=== PATIENT | male | born 1960 | race Two or more races ===

== ENCOUNTER 2017-12-04 00:46 | Emergency (ER) | payer MEDICARE, MEDICAID ==
[~2017-12-04] VITALS: Ht 167.6 cm; Wt 86.2 kg
[2017-12-04] MEDS ORDERED: ASPIR 8181 MG ORAL (00:53)
[2017-12-04] MEDS ORDERED: ATORVASTATIN CA40 MG ORAL (00:54)
[2017-12-04] MEDS ORDERED: ISOSORBIDE MONO30 M1 PO (00:55)
[2017-12-04] MEDS ORDERED: HYDRALAZINE HCL10 MG ORAL (00:55)
[2017-12-04] MEDS ORDERED: MULTIVITAMINS1 EAC2 ORAL (00:56)
[2017-12-04] MEDS ORDERED: FUROSEMIDE20 M1 ORAL (00:56)
[2017-12-04] MEDS ORDERED: NORCO 10-325 T1 EACH ORAL (00:56)
[2017-12-04] MEDS ORDERED: PEPCID AC20 M2 PO (00:57)
[2017-12-04] MEDS ORDERED: ZAROXOLYN2.5 MG ORAL (00:57)
[2017-12-04] MEDS ORDERED: PLAVIX75 MG ORAL (00:57)
[2017-12-04] MEDS ORDERED: HUMULIN R100 UNIT/1 SUBQ (01:05)
--- NOTE | 2017-12-04 01:17 | Emergency Room Report ---
History of Present Illness General Chief Complaint: General Complaint Source: Patient, EMS Present Illness HPI Patient is sent in to have a PICC line inserted. He is to receive IV antibiotics at the SNF. He denies any complaints at this time. He says his blood sugar might be high. It's been controlled recently. 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 Pain is controlled. No NVD, dyspnea, chest pain, dysuria. Recent stroke on Plavix. Allergies: Coded Allergies: No Known Allergies (Unverified , 12/04/17) Patient History Past Medical History: see triage record Social History: Denies: smoking, alcohol use, drug use Social History Narrative at [facility] Reviewed Nursing Documentation: PMH: Agreed; PSxH: Agreed Nursing Documentation-PMH Past Medical History: No History, Except For Hx Cardiac Problems: Yes - A-fib Hx Hypertension: Yes Hx Diabetes: Yes Hx Cerebrovascular Accident: Yes Review of Systems All Other Systems: negative except mentioned in HPI Physical Exam Vital Signs Date Time Temp Pulse Resp B/P (MAP) Pulse Ox O2 Delivery O2 Flow Rate FiO2 12/04/17 00:49 97.6 84 18 170/91 95 Room Air 97.5 General Appearance: well appearing, no apparent distress, GCS 15 Head: normocephalic, atraumatic Eyes: bilateral eye normal inspection, bilateral eye PERRL ENT: hearing grossly normal, normal voice, moist mucus membranes Neck: full range of motion, supple Respiratory: no respiratory distress, speaking full sentences Cardiovascular #1: regular rate, rhythm Cardiovascular #2: 2+ radial (L) Gastrointestinal: normal inspection, normal bowel sounds, non tender, soft Genitourinary: no CVA tenderness Musculoskeletal: no calf tenderness, other - foot amputations bilat - dressed Neurologic: alert, oriented x3, motor strength/tone normal, normal gait Psychiatric: mood/affect normal Skin: no rash, other - dressings in place - chronic wounds Medical Decision Making Diagnostic Impression: Primary Impression: Diabetes Qualified Codes: E11.59 - Type 2 diabetes mellitus with other circulatory complications; Z79.4 - assisted (current) use of insulin Additional Impressions: Diabetic foot ulcer Qualified Codes: E11.621 - Type 2 diabetes mellitus with foot ulcer; L97.409 - Non-pressure chronic ulcer of unspecified heel and midfoot with unspecified severity Hypertension Qualified Codes: I10 - Essential (primary) hypertension ER Course Patient presents for PICC line placement for IV antibiotics. He denies complaints and sy. Consideration for IV antibiotics - not toxic, febrile and with stable VS. We are unable to place PICC line at this time. No medical emergency. Returned to SNF to come in when PICC can be placed. Given a dose of one of his meds for HTN. Patient stable for outpatient observation and treatment. Last Vital Signs Date Time Temp Pulse Resp B/P (MAP) Pulse Ox O2 Delivery O2 Flow Rate FiO2 12/04/17 03:17 98.0 84 18 181/96 95 Room Air 98.0 Status: unchanged Disposition: ASSISTED LIVING Condition: Stable Abimael Flores M.D. Dec 04, 2017 01:17
[2017-12-04] MEDS ORDERED: HydrALAZINE 10mg Tab ORAL ONE (01:30)
[2017-12-04 03:17] VITALS: BP 181/96
== END 2017-12-04 03:05 ==
LOC: EDBD 00:46 → EMR 01:07
DX: E11.621 Type 2 diabetes mellitus with foot ulcer (principal); Z89.432 Acquired absence of left foot; Z89.431 Acquired absence of right foot; Z86.73 Personal history of transient ischemic attack (TIA), and cerebral infarction without residual deficits; Z79.02 Long term (current) use of antithrombotics/antiplatelets; Z79.4 Long term (current) use of insulin; I10 Essential (primary) hypertension
CPT/HCPCS: 99284

== ENCOUNTER 2017-12-06 16:43 | Inpatient (IN) | payer MEDICARE, MEDICAID ==
[~2017-12-06] VITALS: Ht 167.6 cm; Wt 84.8 kg
[~2017-12-06 16:43] MED LIST: ASPIR 8181 MG ORAL; ATORVASTATIN CA40 MG ORAL; FUROSEMIDE20 M1 ORAL; HUMULIN R100 UNIT/1 SUBQ; HYDRALAZINE HCL10 MG ORAL; ISOSORBIDE MONO30 M1 PO; MULTIVITAMINS1 EAC2 ORAL; NORCO 10-325 T1 EACH ORAL; PEPCID AC20 M2 PO; PLAVIX75 MG ORAL; ZAROXOLYN2.5 MG ORAL
[2017-12-06] MEDS ORDERED: PEPCID AC20 M2 PO (16:50)
[2017-12-06 17:00] VITALS: BP 160/88
[2017-12-06 17:33] LABS: HEMATOCRIT 23.8 % (42.0-52.0); HEMOGLOBIN 7.6 G/DL (14.2-18.0); MEAN CORPUSCULAR VOLUME 87 FL (80-99); PLATELET COUNT 243 K/UL (150-450); RED BLOOD COUNT 2.72 M/UL (4.70-6.10); RED CELL DISTRIBUTION WIDTH 14.8 % (11.6-14.8); WHITE BLOOD COUNT 11.3 K/UL (4.8-10.8)
[2017-12-06 17:38] LABS: ANION GAP 8 mmol/L (5-15); BLOOD UREA NITROGEN 34 mg/dL (7-18); CARBON DIOXIDE 26 MMOL/L (21-32); CHLORIDE 109 MMOL/L (98-107); CREATININE 3.8 MG/DL (0.55-1.30); POTASSIUM 4.6 MMOL/L (3.5-5.1); SODIUM 143 MMOL/L (136-145)
--- NOTE | 2017-12-06 17:42 | Emergency Room Report ---
History of Present Illness General Chief Complaint: Abnormal Labs Source: Patient (Kulwant Andrade) Present Illness HPI 57-year-old presents to ER brought in by ambulance for anemia. Patient is currently living in assisted nursing facility. Patient was referred to the ER for direct admission by . Patient denies acute complaints, denies fever, chest pain, shortness of breath, calf pain. Patient is currently taking Plavix, reports a history of minor stroke 2 weeks ago, has no facial weakness or paralysis. Reports history of diabetes, has bilateral forefoot amputations. Reports history of hypertension, currently taking his medications. Had labs values drawn at his nursing facility and had a hemoglobin of 6.6 was referred to ER for direct admission and blood transfusion. Denies hematemesis, denies rectal bleeding. Chart shows patient has hx of afib. (Kulwant Andrade) Allergies: Coded Allergies: No Known Allergies (Unverified , 12/04/17) Patient History Past Medical History: see triage record Reviewed Nursing Documentation: PMH: Agreed; PSxH: Agreed (Kulwant Andrade) Nursing Documentation-PMH Past Medical History: No History, Except For Hx Cardiac Problems: Yes - A-fib Hx Hypertension: Yes Hx Diabetes: Yes Hx Cerebrovascular Accident: Yes (Kulwant Andrade) Review of Systems All Other Systems: negative except mentioned in HPI (Kulwant Andrade) Physical Exam Vital Signs Date Time Temp Pulse Resp B/P (MAP) Pulse Ox O2 Delivery O2 Flow Rate FiO2 12/06/17 16:40 97.8 92 16 154/77 100 Room Air 97.9 Sp02 EP Interpretation: reviewed, normal General Appearance: well appearing, no apparent distress, alert, GCS 15, non- toxic Head: normocephalic, atraumatic Eyes: bilateral eye normal inspection, bilateral eye PERRL ENT: hearing grossly normal, normal pharynx, no angioedema, normal voice, uvula midline, moist mucus membranes Neck: full range of motion Respiratory: lungs clear, normal breath sounds, no rhonchi, no respiratory distress, no accessory muscle use, no wheezing, speaking full sentences Cardiovascular #1: regular rate, rhythm, no edema Rectal: normal rectal tone, heme negative stool, other - no black stool Musculoskeletal: other - bilateral forefoot amputation Neurologic: alert, oriented x3, responsive, associate product manager III-XII nml as tested, motor strength/tone normal, sensory intact, speech normal, other - no facial droop Skin: no rash (Kulwant Andrade) Medical Decision Making [place] Attestation Dr. Angel is my supervising Physician whom patient management has been discussed with. (Kulwant Andrade) Medicare Attestation The history of Neil Chavarria has been reviewed and management options for him have been examined and discussed by Karolina Angel. I have personally examined and interviewed the patient. (Karolina Angel DO) Diagnostic Impression: Primary Impression: Anemia ER Course Pt. presents to the ED c/o anemia, BIB ambulance Ddx considered but are not limited to [ ] Vital signs: are WNL, pt. is afebrile ER COURSE: UA Coag studies within normal limits. CBC shows CMP Type and screen show Anitbody test Discuss results with patient. Patient resting comfortably in bed, in no acute distress, nontoxic appearing. Cap refill <2 seconds, no abnormal skin turgor, pulses 2+, vital signs WNL, stable. Ordered 1 units of packed RBCs. Explained to patient the risks of blood transfusion, patient understands risks and is okay with transfusion. - Please note that this Emergency Department Report was dictated using [employer] professor technology software, occasionally this can lead to erroneous entry secondary to interpretation by the dictation equipment. Labs Test 12/06/17 17:13 12/06/17 18:10 White Blood Count 11.3 K/UL (4.8-10.8) Red Blood Count 2.72 M/UL (4.70-6.10) Hemoglobin 7.6 G/DL (14.2-18.0) Hematocrit 23.8 % (42.0-52.0) Mean Corpuscular Volume 87 FL (80-99) Mean Corpuscular Hemoglobin 28.1 PG (27.0-31.0) Mean Corpuscular Hemoglobin Concent 32.2 G/DL (32.0-36.0) Red Cell Distribution Width 14.8 % (11.6-14.8) Platelet Count 243 K/UL (150-450) Mean Platelet Volume 5.5 FL (6.5-10.1) Neutrophils (%) (Auto) % (45.0-75.0) Lymphocytes (%) (Auto) % (20.0-45.0) Monocytes (%) (Auto) % (1.0-10.0) Eosinophils (%) (Auto) % (0.0-3.0) Basophils (%) (Auto) % (0.0-2.0) Differential Total Cells Counted 100 Neutrophils % (Manual) 70 % (45-75) Lymphocytes % (Manual) 23 % (20-45) Monocytes % (Manual) 6 % (1-10) Eosinophils % (Manual) 1 % (0-3) Basophils % (Manual) 0 % (0-2) Band Neutrophils 0 % (0-8) Platelet Estimate Adequate Platelet Morphology Normal Red Blood Cell Morphology Normal Prothrombin Time 10.6 SEC (9.30-11.50) Prothromb Time International Ratio 1.0 (0.9-1.1) Activated Partial Thromboplast Time 28 SEC (23-33) Sodium Level 143 MMOL/L (136-145) Potassium Level 4.6 MMOL/L (3.5-5.1) Chloride Level 109 MMOL/L (98-107) Carbon Dioxide Level 26 MMOL/L (21-32) Anion Gap 8 mmol/L (5-15) Blood Urea Nitrogen 34 mg/dL (7-18) Creatinine 3.8 MG/DL (0.55-1.30) Estimat Glomerular Filtration Rate 16.5 mL/min (>60) Glucose Level 182 MG/DL (74-106) Calcium Level 8.0 MG/DL (8.5-10.1) Total Bilirubin 0.2 MG/DL (0.2-1.0) Aspartate Amino Transf (AST/SGOT) 27 U/L (15-37) Alanine Aminotransferase (ALT/SGPT) 40 U/L (12-78) Alkaline Phosphatase 151 U/L (46-116) Total Protein 6.7 G/DL (6.4-8.2) Albumin 1.7 G/DL (3.4-5.0) Globulin 5.0 g/dL Albumin/Globulin Ratio 0.3 (1.0-2.7) Lipase 170 U/L (73-393) Urine Color Pale yellow Urine Appearance Clear Urine pH 6 (4.5-8.0) Urine Specific [place] 1.010 (1.005-1.035) Urine Protein 4+ (NEGATIVE) Urine Glucose (UA) 1+ (NEGATIVE) Urine Ketones Negative (NEGATIVE) Urine Occult Blood 2+ (NEGATIVE) Urine Nitrite Negative (NEGATIVE) Urine Bilirubin Negative (NEGATIVE) Urine Urobilinogen Normal MG/DL (0.0-1.0) Urine Leukocyte Esterase Negative (NEGATIVE) Urine RBC 10-15 /HPF (0 - 0) Urine WBC 0-2 /HPF (0 - 0) Urine Squamous Epithelial Cells Occasional /LPF Urine Bacteria Few /HPF (NONE) (Kulwant Andrade) Last Vital Signs Date Time Temp Pulse Resp B/P (MAP) Pulse Ox O2 Delivery O2 Flow Rate FiO2 12/06/17 17:00 97.8 88 10 160/88 98 Room Air 97.8 (Kulwant Andrade) Disposition: ADMITTED INPATIENT Condition: Serious Referrals: Romaine Molina MD (PCP) Kulwant Andrade Dec 06, 2017 17:42 Karolina Angel DO Dec 06, 2017 19:42
[2017-12-06 17:43] LABS: ALANINE AMINOTRANSFERASE 40 U/L (12-78); ALBUMIN 1.7 G/DL (3.4-5.0); ALBUMIN/GLOBULIN RATIO 0.3 (1.0-2.7); ALKALINE PHOSPHATASE 151 U/L (46-116); ASPARTATE AMINO TRANSFERASE 27 U/L (15-37); BILIRUBIN,TOTAL 0.2 MG/DL (0.2-1.0)
[2017-12-06 18:20] LABS: APPEARANCE,URINE CLEAR; BILIRUBIN, URINE NEGATIVE (NEGATIVE); COLOR,URINE PALE YELLOW; GLUCOSE, URINE (UA) 1+ (NEGATIVE); KETONES,URINE NEGATIVE (NEGATIVE); LEUKOCYTE ESTERASE ,URINE NEGATIVE (NEGATIVE); NITRITE,URINE NEGATIVE (NEGATIVE); PH,URINE 6 (4.5-8.0); PROTEIN,URINE 4+ (NEGATIVE); UROBILINOGEN,URINE NORMAL MG/DL (0.0-1.0)
[2017-12-06 20:00] VITALS: BP 158/89
[2017-12-06] MEDS ORDERED: HYDROcodone/Acetamin 10/325 tab ORAL PRN (22:30)
[2017-12-07] VITALS (9 sets, daily range): BP systolic 161–192; BP diastolic 90–106
[2017-12-07] MEDS: HydrALAZINE 10mg Tab ORAL SCH ×4 (00:35→17:54)
[2017-12-07] MEDS: NovoLOG Insulin Flexpen SUBQ SCH ×4 (06:23→21:53)
--- NOTE | 2017-12-07 08:24 | Diagnostic Imaging Report ---
Indication: Chest pain Technique: One view of the chest Comparison: none Findings: There is suggestion of mild pulmonary venous congestion. The heart is borderline enlarged. The pleural spaces are clear. No focal airspace consolidation Impression: Equivocal mild pulmonary venous congestion-correlate with clinical findings
[2017-12-07 08:31] LABS: HEMOGLOBIN 7.7 G/DL (14.2-18.0); MEAN CORPUSCULAR VOLUME 88 FL (80-99); PLATELET COUNT 244 K/UL (150-450); RED BLOOD COUNT 2.73 M/UL (4.70-6.10); WHITE BLOOD COUNT 11.9 K/UL (4.8-10.8)
[2017-12-07 08:43] LABS: ALANINE AMINOTRANSFERASE 43 U/L (12-78); ALBUMIN 1.5 G/DL (3.4-5.0); ALBUMIN/GLOBULIN RATIO 0.3 (1.0-2.7); ALKALINE PHOSPHATASE 130 U/L (46-116); ANION GAP 7 mmol/L (5-15); ASPARTATE AMINO TRANSFERASE 34 U/L (15-37); BILIRUBIN,TOTAL 0.2 MG/DL (0.2-1.0); BLOOD UREA NITROGEN 35 mg/dL (7-18); CARBON DIOXIDE 24 MMOL/L (21-32); CHLORIDE 112 MMOL/L (98-107); CREATININE 3.7 MG/DL (0.55-1.30); POTASSIUM 4.6 MMOL/L (3.5-5.1); SODIUM 143 MMOL/L (136-145)
--- NOTE | 2017-12-07 10:16 | GI Initial Consult Note ---
History of Present Illness General Date patient seen: Dec 07, 2017 Time patient seen: 11:22 Reason for Hospitalization: ANEMIA Referring physician: HEIKE GODINEZ Reason for Consultation: ANEMIA Present Illness HPI 57-year-old presents to ER brought in by ambulance for anemia. Patient is currently living in assisted nursing facility. Patient was referred to the ER for direct admission by . Patient denies acute complaints, denies fever, chest pain, shortness of breath, calf pain. Patient is currently taking Plavix, reports a history of minor stroke 2 weeks ago, has no facial weakness or paralysis. Reports history of diabetes, has bilateral forefoot amputations. Reports history of hypertension, currently taking his medications. Had labs values drawn at his nursing facility and had a hemoglobin of 6.6 was referred to ER for direct admission and blood transfusion. Denies hematemesis, denies rectal bleeding. Chart shows patient has hx of afib. GI consulted for anemia. Pt seen, awake A&Ox4 NAD with no active s/sx of N/V/ D. No active s/sx of bleeding. No abdominal pain, diarrhea or constipation. Pt aware he is anemic. Presents today with severe anemia requiring blood transfusion, acute renal insufficiency and elevated alkaline phosphatase and hypoalbuminemia. Patient has no history of endoscopy / colonoscopy. Home Meds Reported Medications Famotidine (PEPCID AC) 20 Mg Tablet, 20 MG PO AC, TAB 12/06/17 Insulin Regular, Human (HUMULIN R) 100 Unit/1 Ml Vial, 0 SUBQ, VIAL 12/04/17 Metolazone (Metolazone) 2.5 Mg Tablet, 2.5 MG ORAL DAILY, #10 TAB 0 Refills 12/04/17 Clopidogrel Bisulfate* (PLAVIX*) 75 Mg Tablet, 75 MG ORAL DAILY, TAB 12/04/17 Famotidine (PEPCID AC) 20 Mg Tablet, 20 MG PO, TAB 12/04/17 Hydrocodone Bit/Acetaminophen 10-325* ([place] 10-325*) 1 Each Tablet, 1 TAB ORAL Q4H PRN for For Pain, TAB 0 Refills PRN PAIN 12/04/17 Multivitamins* (MULTIVITAMINS*) 1 Each Tablet, 1 TAB ORAL DAILY, TAB 0 Refills 12/04/17 Furosemide* (LASIX*) 20 Mg Tablet, 20 MG ORAL DAILY, TAB 12/04/17 Isosorbide Mononitrate (ISOSORBIDE MONONITRATE ER) 30 Mg Tab.er.24h, 30 MG PO, TAB 12/04/17 Hydralazine Hcl* (HYDRALAZINE HCL*) 10 Mg Tablet, 10 MG ORAL EVERY 6 HOURS, TAB 12/04/17 Atorvastatin Calcium* (ATORVASTATIN CALCIUM*) 40 Mg Tablet, 40 MG ORAL BEDTIME, TAB 12/04/17 Aspirin* (ASPIR 81*) 81 Mg Tablet.dr, 81 MG ORAL DAILY, TAB 12/04/17 Med list reviewed/reconciled: Yes Allergies: Coded Allergies: No Known Allergies (Unverified , 12/04/17) Patient History History Provided By: Patient, Medical Record PMH Narrative Past Medical History: No History, Except For Hx Cardiac Problems: Yes - A-fib Hx Hypertension: Yes Hx Diabetes: Yes Hx Cerebrovascular Accident: Yes Social History: Denies: smoking, alcohol use, drug use, other Review of Systems All Other Systems: negative except mentioned in HPI Physical Exam Vital Signs Date Time Temp Pulse Resp B/P (MAP) Pulse Ox O2 Delivery O2 Flow Rate FiO2 12/06/17 16:40 97.8 92 16 154/77 100 Room Air 97.9 Sp02 EP Interpretation: reviewed, normal Labs Laboratory Tests Test 12/06/17 17:13 12/06/17 18:10 12/07/17 06:50 White Blood Count 11.3 K/UL (4.8-10.8) H 11.9 K/UL (4.8-10.8) H Red Blood Count 2.72 M/UL (4.70-6.10) L 2.73 M/UL (4.70-6.10) L Hemoglobin 7.6 G/DL (14.2-18.0) L 7.7 G/DL (14.2-18.0) L Hematocrit 23.8 % (42.0-52.0) L 24.0 % (42.0-52.0) L Mean Corpuscular Volume 87 FL (80-99) 88 FL (80-99) Mean Corpuscular Hemoglobin 28.1 PG (27.0-31.0) 28.1 PG (27.0-31.0) Mean Corpuscular Hemoglobin Concent 32.2 G/DL (32.0-36.0) 31.9 G/DL (32.0-36.0) L Red Cell Distribution Width 14.8 % (11.6-14.8) 15.0 % (11.6-14.8) H Platelet Count 243 K/UL (150-450) 244 K/UL (150-450) Mean Platelet Volume 5.5 FL (6.5-10.1) L 5.7 FL (6.5-10.1) L Neutrophils (%) (Auto) % (45.0-75.0) % (45.0-75.0) Lymphocytes (%) (Auto) % (20.0-45.0) % (20.0-45.0) Monocytes (%) (Auto) % (1.0-10.0) % (1.0-10.0) Eosinophils (%) (Auto) % (0.0-3.0) % (0.0-3.0) Basophils (%) (Auto) % (0.0-2.0) % (0.0-2.0) Differential Total Cells Counted 100 Neutrophils % (Manual) 70 % (45-75) Pending Lymphocytes % (Manual) 23 % (20-45) Pending Monocytes % (Manual) 6 % (1-10) Eosinophils % (Manual) 1 % (0-3) Basophils % (Manual) 0 % (0-2) Band Neutrophils 0 % (0-8) Platelet Estimate Adequate Pending Platelet Morphology Normal Pending Red Blood Cell Morphology Normal Prothrombin Time 10.6 SEC (9.30-11.50) Prothromb Time International Ratio 1.0 (0.9-1.1) Activated Partial Thromboplast Time 28 SEC (23-33) Sodium Level 143 MMOL/L (136-145) 143 MMOL/L (136-145) Potassium Level 4.6 MMOL/L (3.5-5.1) 4.6 MMOL/L (3.5-5.1) Chloride Level 109 MMOL/L (98-107) H 112 MMOL/L (98-107) H Carbon Dioxide Level 26 MMOL/L (21-32) 24 MMOL/L (21-32) Anion Gap 8 mmol/L (5-15) 7 mmol/L (5-15) Blood Urea Nitrogen 34 mg/dL (7-18) H 35 mg/dL (7-18) H Creatinine 3.8 MG/DL (0.55-1.30) H 3.7 MG/DL (0.55-1.30) H Estimat Glomerular Filtration Rate 16.5 mL/min (>60) 17.0 mL/min (>60) Glucose Level 182 MG/DL (74-106) H 119 MG/DL (74-106) H Calcium Level 8.0 MG/DL (8.5-10.1) L 8.0 MG/DL (8.5-10.1) L Total Bilirubin 0.2 MG/DL (0.2-1.0) 0.2 MG/DL (0.2-1.0) Aspartate Amino Transf (AST/SGOT) 27 U/L (15-37) 34 U/L (15-37) Alanine Aminotransferase (ALT/SGPT) 40 U/L (12-78) 43 U/L (12-78) Alkaline Phosphatase 151 U/L (46-116) H 130 U/L (46-116) H Total Protein 6.7 G/DL (6.4-8.2) 6.1 G/DL (6.4-8.2) L Albumin 1.7 G/DL (3.4-5.0) L 1.5 G/DL (3.4-5.0) L Globulin 5.0 g/dL 4.6 g/dL Albumin/Globulin Ratio 0.3 (1.0-2.7) L 0.3 (1.0-2.7) L Lipase 170 U/L (73-393) Urine Color Pale yellow Urine Appearance Clear Urine pH 6 (4.5-8.0) Urine Specific [place] 1.010 (1.005-1.035) Urine Protein 4+ (NEGATIVE) H Urine Glucose (UA) 1+ (NEGATIVE) H Urine Ketones Negative (NEGATIVE) Urine Occult Blood 2+ (NEGATIVE) H Urine Nitrite Negative (NEGATIVE) Urine Bilirubin Negative (NEGATIVE) Urine Urobilinogen Normal MG/DL (0.0-1.0) Urine Leukocyte Esterase Negative (NEGATIVE) Urine RBC 10-15 /HPF (0 - 0) H Urine WBC 0-2 /HPF (0 - 0) Urine Squamous Epithelial Cells Occasional /LPF Urine Bacteria Few /HPF (NONE) General Appearance: well appearing, no apparent distress, alert Head: normocephalic EENT: PERRL/EOMI, normal ENT inspection Neck: supple Respiratory: normal breath sounds, no respiratory distress Cardiovascular: normal rate Gastrointestinal: normal inspection, non tender, soft, normal bowel sounds, non -distended Rectal: deferred Genitourinary: deferred Musculoskeletal: normal inspection, back normal Neurologic: normal inspection, alert, oriented x3, responsive Psychiatric: normal inspection, judgement/insight normal, memory normal Skin: normal color, no rash, warm/dry, palpation normal, well hydrated, other - left heel wound Lymphatic: normal inspection, no adenopathy Current Medications Current Medications Medications (Trade) Dose Ordered Sig/Wilbert Route PRN Reason Start Time Stop Time Status Last Admin Dose Admin Acetaminophen/ Hydrocodone Bitart ([place] 10/325) 1 tab Q4H PRN ORAL For Pain 12/06/17 22:30 12/13/17 22:29 Atorvastatin Calcium (Lipitor) 40 mg BEDTIME ORAL 12/07/17 21:00 01/06/18 20:59 Dextrose (Dextrose 50%) 25 ml STAT PRN IV Hypoglycemia 12/06/17 22:30 01/05/18 22:29 Dextrose (Dextrose 50%) 50 ml STAT PRN IV Hypoglycemia 12/06/17 22:30 01/05/18 22:29 Famotidine (Pepcid) 10 mg ACBREAKFAST ORAL 12/08/17 06:30 01/06/18 06:29 Furosemide (Lasix) 20 mg DAILY ORAL 12/07/17 09:00 01/06/18 08:59 12/07/17 08:53 Hydralazine HCl (Apresoline) 10 mg Q6HR ORAL 12/07/17 00:00 01/06/18 00:00 12/07/17 06:21 Insulin Aspart (NovoLOG) BEFORE MEALS AND HS SUBQ 12/07/17 06:30 01/06/18 06:29 12/07/17 06:23 Multivitamins (Multivitamins) 1 tab DAILY ORAL 12/07/17 09:00 01/06/18 08:59 12/07/17 08:53 GI: Plan Problems: (1) Renal insufficiency (2) Anemia (3) Diabetes (4) CVA (cerebral vascular accident) Plan EGD/colonoscopy scheduled tomorrow. - [facility] now, [facility] - hold all blood thinners / plavix anemia work up OB stool r/o GI bleed monitor H&H, prn transfusions bowel regime ppi fu labs Discussed with Dr. Muro. Thank you for this patient referral, we will follow. The patient was seen and examined at bedside and all new and available data was reviewed in the patients chart. I agree with the above findings, impression and plan. (Patient seen earlier today. Signature stamp does not reflect patient encounter time.). - MD Zita MichelleChandler Regional Medical CenterRachael GAS LEAK INSPECTOR Dec 07, 2017 10:16
--- NOTE | 2017-12-07 11:38 | Consultation ---
Consult Note Consult Note Job ID [id number] Ronnie Bray MD Dec 07, 2017 11:38
--- NOTE | 2017-12-07 12:08 | Consultation ---
History of Present Illness General Date patient seen: Dec 07, 2017 Chief Complaint: Abnormal Labs Reason for Consultation: ANEMIA Present Illness HPI 57-year-old presents to ER brought in by ambulance for anemia from his assisted nursing facility. the pt c/o pain and anxiety. He stated that his problems are situational. The pt has good insight and stated that he wants his eye glasses as he cannot see nor read Allergies: Coded Allergies: No Known Allergies (Unverified , 12/04/17) Medication History Scheduled Aspirin* (Aspir 81*), 81 MG ORAL DAILY, (Reported) Atorvastatin Calcium* (Atorvastatin Calcium*), 40 MG ORAL BEDTIME, (Reported) Clopidogrel Bisulfate* (Plavix*), 75 MG ORAL DAILY, (Reported) Famotidine (Pepcid Ac), 20 MG PO AC, (Reported) Furosemide* (Lasix*), 20 MG ORAL DAILY, (Reported) Hydralazine Hcl* (Hydralazine Hcl*), 10 MG ORAL EVERY 6 HOURS, (Reported) Metolazone (Metolazone), 2.5 MG ORAL DAILY, (Reported) Multivitamins* (Multivitamins*), 1 TAB ORAL DAILY, (Reported) Scheduled PRN Hydrocodone Bit/Acetaminophen 10-325* ([place] 10-325*), 1 TAB ORAL Q4H PRN for For Pain, (Reported) Miscellaneous Medications Famotidine (Pepcid Ac), 20 MG PO, (Reported) Insulin Regular, Human (Humulin R), 0 SUBQ, (Reported) Isosorbide Mononitrate (Isosorbide Mononitrate Er), 30 MG PO, (Reported) Patient History Limited by: medical condition History Provided By: Patient, Medical Record, PMD Healthcare decision maker Resuscitation status Full Code Advanced Directive on File No Past Medical/Surgical History Past Medical/Surgical History: (1) Anemia (2) Hypertension (3) Diabetic foot ulcer (4) Diabetes (5) Renal insufficiency (6) CVA (cerebral vascular accident) Review of Systems Psychiatric: Reports: prior hx, anxiety, depressed feelings Physical Exam General Appearance: no apparent distress, alert Neurologic: alert, oriented x 3, depressed affect Last 24 Hour Vital Signs Date Time Temp Pulse Resp B/P (MAP) Pulse Ox O2 Delivery O2 Flow Rate FiO2 12/07/17 11:41 187/105 12/07/17 09:00 Room Air 12/07/17 08:00 99.9 87 20 177/96 (123) 98 99.9 12/07/17 06:21 172/91 12/07/17 04:00 98.0 89 20 172/91 (118) 95 98.0 12/07/17 04:00 88 12/07/17 00:35 162/90 12/07/17 00:00 84 12/07/17 00:00 98.0 89 20 162/90 (114) 96 98.0 12/06/17 21:00 Room Air 12/06/17 20:09 98.6 86 20 168/87 100 Room Air 12/06/17 20:00 89 12/06/17 20:00 97.8 89 20 158/89 (112) 96 97.8 12/06/17 19:11 98.1 84 16 98.1 12/06/17 18:56 98.1 90 20 98.1 12/06/17 17:00 97.8 88 10 160/88 98 Room Air 97.8 12/06/17 16:40 97.8 92 16 154/77 100 Room Air 97.9 Intake and Output 12/06/17 12/07/17 19:00 07:00 Intake Total 50 ml Output Total 300 ml Balance -250 ml Intake Oral 50 ml Output Urine Total 300 ml # Voids 1 Laboratory Tests Test 12/06/17 17:13 12/06/17 18:10 12/07/17 06:50 White Blood Count 11.3 K/UL (4.8-10.8) H 11.9 K/UL (4.8-10.8) H Red Blood Count 2.72 M/UL (4.70-6.10) L 2.73 M/UL (4.70-6.10) L Hemoglobin 7.6 G/DL (14.2-18.0) L 7.7 G/DL (14.2-18.0) L Hematocrit 23.8 % (42.0-52.0) L 24.0 % (42.0-52.0) L Mean Corpuscular Volume 87 FL (80-99) 88 FL (80-99) Mean Corpuscular Hemoglobin 28.1 PG (27.0-31.0) 28.1 PG (27.0-31.0) Mean Corpuscular Hemoglobin Concent 32.2 G/DL (32.0-36.0) 31.9 G/DL (32.0-36.0) L Red Cell Distribution Width 14.8 % (11.6-14.8) 15.0 % (11.6-14.8) H Platelet Count 243 K/UL (150-450) 244 K/UL (150-450) Mean Platelet Volume 5.5 FL (6.5-10.1) L 5.7 FL (6.5-10.1) L Neutrophils (%) (Auto) % (45.0-75.0) % (45.0-75.0) Lymphocytes (%) (Auto) % (20.0-45.0) % (20.0-45.0) Monocytes (%) (Auto) % (1.0-10.0) % (1.0-10.0) Eosinophils (%) (Auto) % (0.0-3.0) % (0.0-3.0) Basophils (%) (Auto) % (0.0-2.0) % (0.0-2.0) Differential Total Cells Counted 100 100 Neutrophils % (Manual) 70 % (45-75) 78 % (45-75) H Lymphocytes % (Manual) 23 % (20-45) 16 % (20-45) L Monocytes % (Manual) 6 % (1-10) 6 % (1-10) Eosinophils % (Manual) 1 % (0-3) 0 % (0-3) Basophils % (Manual) 0 % (0-2) 0 % (0-2) Band Neutrophils 0 % (0-8) 0 % (0-8) Platelet Estimate Adequate Decreased L Platelet Morphology Normal Normal Red Blood Cell Morphology Normal Prothrombin Time 10.6 SEC (9.30-11.50) Prothromb Time International Ratio 1.0 (0.9-1.1) Activated Partial Thromboplast Time 28 SEC (23-33) Sodium Level 143 MMOL/L (136-145) 143 MMOL/L (136-145) Potassium Level 4.6 MMOL/L (3.5-5.1) 4.6 MMOL/L (3.5-5.1) Chloride Level 109 MMOL/L (98-107) H 112 MMOL/L (98-107) H Carbon Dioxide Level 26 MMOL/L (21-32) 24 MMOL/L (21-32) Anion Gap 8 mmol/L (5-15) 7 mmol/L (5-15) Blood Urea Nitrogen 34 mg/dL (7-18) H 35 mg/dL (7-18) H Creatinine 3.8 MG/DL (0.55-1.30) H 3.7 MG/DL (0.55-1.30) H Estimat Glomerular Filtration Rate 16.5 mL/min (>60) 17.0 mL/min (>60) Glucose Level 182 MG/DL (74-106) H 119 MG/DL (74-106) H Calcium Level 8.0 MG/DL (8.5-10.1) L 8.0 MG/DL (8.5-10.1) L Total Bilirubin 0.2 MG/DL (0.2-1.0) 0.2 MG/DL (0.2-1.0) Aspartate Amino Transf (AST/SGOT) 27 U/L (15-37) 34 U/L (15-37) Alanine Aminotransferase (ALT/SGPT) 40 U/L (12-78) 43 U/L (12-78) Alkaline Phosphatase 151 U/L (46-116) H 130 U/L (46-116) H Total Protein 6.7 G/DL (6.4-8.2) 6.1 G/DL (6.4-8.2) L Albumin 1.7 G/DL (3.4-5.0) L 1.5 G/DL (3.4-5.0) L Globulin 5.0 g/dL 4.6 g/dL Albumin/Globulin Ratio 0.3 (1.0-2.7) L 0.3 (1.0-2.7) L Lipase 170 U/L (73-393) Urine Color Pale yellow Urine Appearance Clear Urine pH 6 (4.5-8.0) Urine Specific [place] 1.010 (1.005-1.035) Urine Protein 4+ (NEGATIVE) H Urine Glucose (UA) 1+ (NEGATIVE) H Urine Ketones Negative (NEGATIVE) Urine Occult Blood 2+ (NEGATIVE) H Urine Nitrite Negative (NEGATIVE) Urine Bilirubin Negative (NEGATIVE) Urine Urobilinogen Normal MG/DL (0.0-1.0) Urine Leukocyte Esterase Negative (NEGATIVE) Urine RBC 10-15 /HPF (0 - 0) H Urine WBC 0-2 /HPF (0 - 0) Urine Squamous Epithelial Cells Occasional /LPF Urine Bacteria Few /HPF (NONE) Microbiology Date/Time Source Procedure Growth Status 12/06/17 19:35 Rectum Received Height (Feet): 5 Height (Inches): 6.00 Weight (Pounds): 190 Medications Current Medications Medications (Trade) Dose Ordered Sig/Wilbert Route PRN Reason Start Time Stop Time Status Last Admin Dose Admin Acetaminophen/ Hydrocodone Bitart ([place] 10/325) 1 tab Q4H PRN ORAL For Pain 12/06/17 22:30 12/13/17 22:29 Atorvastatin Calcium (Lipitor) 40 mg BEDTIME ORAL 12/07/17 21:00 01/06/18 20:59 Bisacodyl (Dulcolax) 10 mg ONCE ONCE ORAL 12/07/17 16:00 12/07/17 16:01 UNV Chlorhexidine Gluconate (Kavita-Hex 2%) 1 applic DAILY@2000 TOPIC 12/07/17 20:00 01/06/18 19:59 UNV Clonidine HCl (Catapres Tab) 0.1 mg EVERY 6 HOURS PRN ORAL For High Blood Pressure 12/07/17 11:45 01/06/18 11:44 UNV Dextrose (Dextrose 50%) 25 ml STAT PRN IV Hypoglycemia 12/06/17 22:30 01/05/18 22:29 Dextrose (Dextrose 50%) 50 ml STAT PRN IV Hypoglycemia 12/06/17 22:30 01/05/18 22:29 Famotidine (Pepcid) 10 mg ACBREAKFAST ORAL 12/08/17 06:30 01/06/18 06:29 Furosemide (Lasix) 20 mg DAILY ORAL 12/07/17 09:00 01/06/18 08:59 12/07/17 08:53 Heparin Sodium/ Sodium Chloride (Heparin 2000 units/Ns 1000ml premix) 2,000 unit ONCE ONCE INJ 12/07/17 11:30 12/07/17 11:31 UNV Hydralazine HCl (Apresoline) 10 mg Q6HR ORAL 12/07/17 00:00 01/06/18 00:00 12/07/17 11:41 Insulin Aspart (NovoLOG) BEFORE MEALS AND HS SUBQ 12/07/17 06:30 01/06/18 06:29 12/07/17 11:41 Lidocaine HCl (Xylocaine 1% 30ml) 30 ml ONCE ONCE INJ 12/07/17 11:30 12/07/17 11:31 UNV Multivitamins (Multivitamins) 1 tab DAILY ORAL 12/07/17 09:00 01/06/18 08:59 12/07/17 08:53 Polyethylene Glycol (Miralax) 238 gm ONCE ONCE ORAL 12/07/17 16:00 12/07/17 16:01 UNV Assessment/Plan Assessment/Plan Adjustment d/o anxiety d/o atconnie edge/Toney Cardoso MD Dec 07, 2017 12:08
[2017-12-07] MEDS ORDERED: Heparin 2000 units/Ns 1000ml INJ SCH (12:30)
[2017-12-07] MEDS ORDERED: Gadavist 7.5mMol/7.5ml vial IV PRN (12:30)
[2017-12-07] MEDS ORDERED: Lidocaine 1% Plain 30 ml INJ SCH (12:30)
--- NOTE | 2017-12-07 12:30 | Consultation ---
History of Present Illness General Date patient seen: Dec 07, 2017 Chief Complaint: Abnormal Labs Reason for Consultation: ANEMIA Present Illness HPI 57 year old male with multiple medical comorbidities currently living in nursing facility was noted to have significant anemia and was transported to [facility] [place]up and care. upon admission patient noted to have bilateral lower extremity amputations with left midfoot and right partial. on right foot there is a large open complex wound at the heel. patient states he has had for some time now and has not been healing well. surgery called to evaluate and assist with care. patient seen, chart reviewed, patient examined. Allergies: Coded Allergies: No Known Allergies (Unverified , 12/04/17) Medication History Scheduled Aspirin* (Aspir 81*), 81 MG ORAL DAILY, (Reported) Atorvastatin Calcium* (Atorvastatin Calcium*), 40 MG ORAL BEDTIME, (Reported) Clopidogrel Bisulfate* (Plavix*), 75 MG ORAL DAILY, (Reported) Famotidine (Pepcid Ac), 20 MG PO AC, (Reported) Furosemide* (Lasix*), 20 MG ORAL DAILY, (Reported) Hydralazine Hcl* (Hydralazine Hcl*), 10 MG ORAL EVERY 6 HOURS, (Reported) Metolazone (Metolazone), 2.5 MG ORAL DAILY, (Reported) Multivitamins* (Multivitamins*), 1 TAB ORAL DAILY, (Reported) Scheduled PRN Hydrocodone Bit/Acetaminophen 10-325* ([place] 10-325*), 1 TAB ORAL Q4H PRN for For Pain, (Reported) Miscellaneous Medications Famotidine (Pepcid Ac), 20 MG PO, (Reported) Insulin Regular, Human (Humulin R), 0 SUBQ, (Reported) Isosorbide Mononitrate (Isosorbide Mononitrate Er), 30 MG PO, (Reported) Patient History History Provided By: Patient, Medical Record, PMD Healthcare decision maker Resuscitation status Full Code Advanced Directive on File No Past Medical/Surgical History Past Medical/Surgical History: (1) Ulcer of right heel and midfoot with fat layer exposed (2) Anemia (3) Diabetes (4) Renal insufficiency (5) CVA (cerebral vascular accident) (6) Hypertension (7) Diabetic foot ulcer Review of Systems All Other Systems: negative except mentioned in HPI Physical Exam General Appearance: no apparent distress, alert HEENT: mucous membranes moist Neck: normal inspection Respiratory/Chest: normal breath sounds, no respiratory distress, no accessory muscle use Cardiovascular/Chest: regular rhythm Abdomen: soft, no organomegaly, no mass Extremities: other - left foot amputation, right foot amputation, right foot with large heel ulcer non healing possibly down to bone Skin Exam: normal pigmentation Neurologic: alert, responsive Last 24 Hour Vital Signs Date Time Temp Pulse Resp B/P (MAP) Pulse Ox O2 Delivery O2 Flow Rate FiO2 12/07/17 11:41 187/105 12/07/17 09:00 Room Air 12/07/17 08:00 99.9 87 20 177/96 (123) 98 99.9 12/07/17 06:21 172/91 12/07/17 04:00 98.0 89 20 172/91 (118) 95 98.0 12/07/17 04:00 88 12/07/17 00:35 162/90 12/07/17 00:00 84 12/07/17 00:00 98.0 89 20 162/90 (114) 96 98.0 12/06/17 21:00 Room Air 12/06/17 20:09 98.6 86 20 168/87 100 Room Air 12/06/17 20:00 89 12/06/17 20:00 97.8 89 20 158/89 (112) 96 97.8 12/06/17 19:11 98.1 84 16 98.1 12/06/17 18:56 98.1 90 20 98.1 12/06/17 17:00 97.8 88 10 160/88 98 Room Air 97.8 12/06/17 16:40 97.8 92 16 154/77 100 Room Air 97.9 Intake and Output 12/06/17 12/07/17 19:00 07:00 Intake Total 50 ml Output Total 300 ml Balance -250 ml Intake Oral 50 ml Output Urine Total 300 ml # Voids 1 Laboratory Tests Test 12/06/17 17:13 12/06/17 18:10 12/07/17 06:50 White Blood Count 11.3 K/UL (4.8-10.8) H 11.9 K/UL (4.8-10.8) H Red Blood Count 2.72 M/UL (4.70-6.10) L 2.73 M/UL (4.70-6.10) L Hemoglobin 7.6 G/DL (14.2-18.0) L 7.7 G/DL (14.2-18.0) L Hematocrit 23.8 % (42.0-52.0) L 24.0 % (42.0-52.0) L Mean Corpuscular Volume 87 FL (80-99) 88 FL (80-99) Mean Corpuscular Hemoglobin 28.1 PG (27.0-31.0) 28.1 PG (27.0-31.0) Mean Corpuscular Hemoglobin Concent 32.2 G/DL (32.0-36.0) 31.9 G/DL (32.0-36.0) L Red Cell Distribution Width 14.8 % (11.6-14.8) 15.0 % (11.6-14.8) H Platelet Count 243 K/UL (150-450) 244 K/UL (150-450) Mean Platelet Volume 5.5 FL (6.5-10.1) L 5.7 FL (6.5-10.1) L Neutrophils (%) (Auto) % (45.0-75.0) % (45.0-75.0) Lymphocytes (%) (Auto) % (20.0-45.0) % (20.0-45.0) Monocytes (%) (Auto) % (1.0-10.0) % (1.0-10.0) Eosinophils (%) (Auto) % (0.0-3.0) % (0.0-3.0) Basophils (%) (Auto) % (0.0-2.0) % (0.0-2.0) Differential Total Cells Counted 100 100 Neutrophils % (Manual) 70 % (45-75) 78 % (45-75) H Lymphocytes % (Manual) 23 % (20-45) 16 % (20-45) L Monocytes % (Manual) 6 % (1-10) 6 % (1-10) Eosinophils % (Manual) 1 % (0-3) 0 % (0-3) Basophils % (Manual) 0 % (0-2) 0 % (0-2) Band Neutrophils 0 % (0-8) 0 % (0-8) Platelet Estimate Adequate Decreased L Platelet Morphology Normal Normal Red Blood Cell Morphology Normal Prothrombin Time 10.6 SEC (9.30-11.50) Prothromb Time International Ratio 1.0 (0.9-1.1) Activated Partial Thromboplast Time 28 SEC (23-33) Sodium Level 143 MMOL/L (136-145) 143 MMOL/L (136-145) Potassium Level 4.6 MMOL/L (3.5-5.1) 4.6 MMOL/L (3.5-5.1) Chloride Level 109 MMOL/L (98-107) H 112 MMOL/L (98-107) H Carbon Dioxide Level 26 MMOL/L (21-32) 24 MMOL/L (21-32) Anion Gap 8 mmol/L (5-15) 7 mmol/L (5-15) Blood Urea Nitrogen 34 mg/dL (7-18) H 35 mg/dL (7-18) H Creatinine 3.8 MG/DL (0.55-1.30) H 3.7 MG/DL (0.55-1.30) H Estimat Glomerular Filtration Rate 16.5 mL/min (>60) 17.0 mL/min (>60) Glucose Level 182 MG/DL (74-106) H 119 MG/DL (74-106) H Calcium Level 8.0 MG/DL (8.5-10.1) L 8.0 MG/DL (8.5-10.1) L Total Bilirubin 0.2 MG/DL (0.2-1.0) 0.2 MG/DL (0.2-1.0) Aspartate Amino Transf (AST/SGOT) 27 U/L (15-37) 34 U/L (15-37) Alanine Aminotransferase (ALT/SGPT) 40 U/L (12-78) 43 U/L (12-78) Alkaline Phosphatase 151 U/L (46-116) H 130 U/L (46-116) H Total Protein 6.7 G/DL (6.4-8.2) 6.1 G/DL (6.4-8.2) L Albumin 1.7 G/DL (3.4-5.0) L 1.5 G/DL (3.4-5.0) L Globulin 5.0 g/dL 4.6 g/dL Albumin/Globulin Ratio 0.3 (1.0-2.7) L 0.3 (1.0-2.7) L Lipase 170 U/L (73-393) Urine Color Pale yellow Urine Appearance Clear Urine pH 6 (4.5-8.0) Urine Specific [place] 1.010 (1.005-1.035) Urine Protein 4+ (NEGATIVE) H Urine Glucose (UA) 1+ (NEGATIVE) H Urine Ketones Negative (NEGATIVE) Urine Occult Blood 2+ (NEGATIVE) H Urine Nitrite Negative (NEGATIVE) Urine Bilirubin Negative (NEGATIVE) Urine Urobilinogen Normal MG/DL (0.0-1.0) Urine Leukocyte Esterase Negative (NEGATIVE) Urine RBC 10-15 /HPF (0 - 0) H Urine WBC 0-2 /HPF (0 - 0) Urine Squamous Epithelial Cells Occasional /LPF Urine Bacteria Few /HPF (NONE) Microbiology Date/Time Source Procedure Growth Status 12/06/17 19:35 Rectum Received Height (Feet): 5 Height (Inches): 6.00 Weight (Pounds): 190 Medications Current Medications Medications (Trade) Dose Ordered Sig/Wilbert Route PRN Reason Start Time Stop Time Status Last Admin Dose Admin Acetaminophen/ Hydrocodone Bitart ([place] 10/325) 1 tab Q4H PRN ORAL For Pain 12/06/17 22:30 12/13/17 22:29 Atorvastatin Calcium (Lipitor) 40 mg BEDTIME ORAL 12/07/17 21:00 01/06/18 20:59 Bisacodyl (Dulcolax) 10 mg ONCE ORAL 12/07/17 16:00 12/07/17 17:00 Chlorhexidine Gluconate (Kavita-Hex 2%) 1 applic DAILY@1999 TOPIC 12/07/17 20:00 01/06/18 19:59 Clonidine HCl (Catapres Tab) 0.1 mg Q6H PRN ORAL if SBP>170 12/07/17 12:15 01/06/18 12:14 Dextrose (Dextrose 50%) 25 ml STAT PRN IV Hypoglycemia 12/06/17 22:30 01/05/18 22:29 Dextrose (Dextrose 50%) 50 ml STAT PRN IV Hypoglycemia 12/06/17 22:30 01/05/18 22:29 Famotidine (Pepcid) 10 mg ACBREAKFAST ORAL 12/08/17 06:30 01/06/18 06:29 Furosemide (Lasix) 20 mg DAILY ORAL 12/07/17 09:00 01/06/18 08:59 12/07/17 08:53 Heparin Sodium/ Sodium Chloride (Heparin 2000 units/Ns 1000ml premix) 2,000 unit ONCE INJ 12/07/17 12:30 12/07/17 13:30 Hydralazine HCl (Apresoline) 10 mg Q6HR ORAL 12/07/17 00:00 01/06/18 00:00 12/07/17 11:41 Insulin Aspart (NovoLOG) BEFORE MEALS AND HS SUBQ 12/07/17 06:30 01/06/18 06:29 12/07/17 11:41 Lidocaine HCl (Xylocaine 1% 30ml) 30 ml ONCE INJ 12/07/17 12:30 12/07/17 13:30 Multivitamins (Multivitamins) 1 tab DAILY ORAL 12/07/17 09:00 01/06/18 08:59 12/07/17 08:53 Polyethylene Glycol (Miralax) 238 gm ONCE ORAL 12/07/17 16:00 12/07/17 17:00 Assessment/Plan Problem List: (1) Anemia ICD Codes: D64.9 - Anemia, unspecified SNOMED: 945576310 (2) Diabetes ICD Codes: E11.9 - Type 2 diabetes mellitus without complications SNOMED: 56737466, 76135734 (3) Ulcer of right heel and midfoot with fat layer exposed Assessment & Plan: left foot amputation, right foot amputation, right foot with large heel ulcer non healing possibly down to bone -MRI right foot to ensure no osteo -wet to dry dressing to help with debridement of fibrinous debris. -keep off wound -heel protectors. ICD Codes: L97.412 - Non-pressure chronic ulcer of right heel and midfoot with fat layer exposed SNOMED: 53963638 Status: stable [email or web address] paya Dec 07, 2017 12:30
[2017-12-07] MEDS ORDERED: Bisacodyl EC 5mg tab ORAL SCH (16:00)
[2017-12-07] MEDS ORDERED: HydrALAZINE 25mg tab ORAL PRN ×2 (16:00→20:00)
[2017-12-07] MEDS ORDERED: Polyethylene Glycol 238gm bottle ORAL SCH (16:00)
--- NOTE | 2017-12-07 16:42 | Diagnostic Imaging Report ---
Indication: Reason For Exam: ABSCESS Technique: Sagittal, coronal, and axial T 1 fast spin echo and FSE STIR images of the hindfoot and ankle Comparison: none Findings: There is extensive edema of the superficial subcutaneous fat diffusely, most prominent medial to the mid calcaneus. There is considerable edema of the deep soft tissue compartments as well. There is questionably a 16 mm discrete collection in the medial ankle region in the region of the soft tissue ulcer. No definite osseous signal abnormality is demonstrated. Impression: Extensive diffuse soft tissue edema, nonspecific in appearance but likely on the basis of cellulitis given stated clinical history Possible small 16 mm abscess in the medial ankle subcutaneous fat No osseous signal abnormality to suggest osteomyelitis
--- NOTE | 2017-12-07 17:45 | History and Physical Report ---
DATE OF ADMISSION: 12/06/2017 HISTORY OF PRESENT ILLNESS: I saw the patient. The patient basically is here, admitted for multiple reasons, mainly severe anemia, also acute renal failure. The patient also has wounds, has osteomyelitis of the wound as well. [facility]. The patient was complaining of lower extremity pain. Denies fever. Denies shortness of breath. Denies cough. Denies fever or chills. Denies orthopnea. Denies neuropathy as well. PAST MEDICAL HISTORY: CVA, history of diabetes mellitus, and history of hypertension. The patient also has a history of atrial fibrillation and history of CVA as mentioned. Osteomyelitis of the wound. PAST SURGICAL HISTORY: He has basically bilateral forefoot amputations. MEDICATIONS: Aspirin, Lipitor, Plavix, Pepcid, hydralazine, insulin, isosorbide, and multivitamin. FAMILY HISTORY: He does have history of diabetes and hypertension. SOCIAL HISTORY: History of smoking, history of drug and alcohol abuse. [facility]es [facility]. As mentioned, history of smoking, drug and alcohol abuse. REVIEW OF SYSTEMS: HEENT: Denies headaches. RESPIRATORY: Denies shortness of breath. Denies cough. CARDIOVASCULAR: Denies chest pain. GASTROINTESTINAL: Denies nausea, vomiting, or diarrhea. EXTREMITIES: Worse bilateral lower leg, which is chronic. CENTRAL NERVOUS SYSTEM: Denies change in vision or speech pattern. PHYSICAL EXAMINATION: VITAL SIGNS: Temperature is 98 degrees, pulse 89,and blood pressure 162/90. HEENT: PERRLA. NECK: Supple. No lymphadenopathy. CHEST: Clear to auscultation. CARDIOVASCULAR: Regular rate and rhythm. GASTROINTESTINAL: Soft, nontender, and nondistended. No organomegaly. EXTREMITIES: infection. Please refer to the nursing notes for the wound description. LABORATORY AND DIAGNOSTIC DATA: WBC of 11.3, hemoglobin 7.6 and platelets of 243. Sodium 143, potassium 4.6, BUN of 34, creatinine of 3.8, and glucose of 184. AST of 27 and AST of 40. Total bilirubin 1.2. Lipase of 170. ASSESSMENT AND PLAN: 1. Severe anemia. 2. Acute renal failure. 3. Multiple wounds, may need debridement. 4. I have asked Dr. Bray, Dr. Connors, Dr. Muro, and Dr. Browning to see the patient for possible debridement as well as possible workup of anemia as well. We will also order a PICC line since the patient is going to be on multiple weeks of antibiotics for osteomyelitis of the wound. Romaine Molina M.D. DR: CARLIE JOB#: [id number] CC:
--- NOTE | 2017-12-07 18:00 | Consultation ---
DATE OF CONSULTATION: 12/07/2017 HEMATOLOGY/ONCOLOGY CONSULTATION CONSULTING PHYSICIAN: Ronnie Bray M.D. REQUESTING PHYSICIAN: Romaine Molina M.D. REASON FOR CONSULTATION: Evaluation of anemia. IDENTIFICATION DATA: Dear Dr. Molina, Thank you for the courtesy of this consultation. The patient is a pleasant 57-year-old male with history of diabetes mellitus, history of hyperlipidemia, shortness of breath, history of ago for facial weakness, paralysis, diabetes, bilateral forefoot amputations, noted to have a [facility] 6[facility]6 at a [facility], therefore, directly being admitted for blood transfusion. The patient has a history of atrial fibrillation as well. Gastrointestinal service consulted for anemia. Hematology service was consulted as well. The patient has no history of endoscopy in the past. PAST MEDICAL HISTORY: Hypertension, diabetes, atrial fibrillation, CVA. PAST SURGICAL HISTORY: None noted. MEDICATIONS: Aspirin, Lipitor, hydralazine, Imdur, Lasix, multivitamin, hydrocodone, Pepcid, Plavix, and metolazone. ALLERGIES: No known drug allergies. REVIEW OF SYSTEMS: CONSTITUTIONAL: No fever, chills, or night sweats. SKIN: No rashes, bumps, or itching. HEENT: No headache, hearing or visual changes. BREASTS: No lumps, pain, or discharge. PULMONARY: No cough, sputum, or shortness of breath. GASTROINTESTINAL: No nausea, vomiting, or diarrhea. GENITOURINARY: No dysuria, frequency, or urgency. MUSCULOSKELETAL: No joint swelling, muscle pain, or trauma. PHYSICAL EXAMINATION: VITAL SIGNS: Reviewed. GENERAL: No acute distress. LUNGS: Decreased breath sounds. CARDIOVASCULAR: Regular rate. No S3 or S4. ABDOMEN: Soft, nontender, and nondistended. EXTREMITIES: A 1+ edema. LABORATORY DATA: WBC 11.9, hemoglobin 7.7, hematocrit 24, and platelet count 254,000. BUN 53 and creatinine 2.7. Coagulation panel has been reviewed. Orders have been reviewed. Anemia panel has been ordered by GI service. ASSESSMENT AND RECOMMENDATIONS: 1. Anemia due to underlying chronic disease. Continue to closely monitor. Anemia panel ordered. 2. Anemia due to underlying kidney disease. Closely monitor for improvement. 3. Mild protein-caloric malnutrition. 4. Leukocytosis potentially secondary to reactive process. 5. Diabetes mellitus. A1c goal less than 7. 6. Constipation . Endoscopy as per gastrointestinal service. I appreciate consultation. Ronnie Bray M.D. DR: SHAHIDA JOB#: [id number] CC:
[2017-12-07] MEDS: Dyna-Hex 2% Top Sol 2oz TOPIC SCH (20:00)
[2017-12-07] MEDS: Atorvastatin 20mg tab ORAL SCH (21:39)
[2017-12-08] VITALS (12 sets, daily range): BP systolic 158–206; BP diastolic 92–115
[2017-12-08] MEDS: HydrALAZINE 10mg Tab ORAL SCH ×2 (00:14→06:56)
[2017-12-08] MEDS: NovoLOG Insulin Flexpen SUBQ SCH ×4 (06:30→20:17)
[2017-12-08 07:37] LABS: BASOPHILS % (AUTO) 1.1 % (0.0-2.0); EOSINOPHILS % (AUTO) 3.1 % (0.0-3.0); HEMATOCRIT 25.9 % (42.0-52.0); HEMOGLOBIN 8.5 G/DL (14.2-18.0); LYMPHOCYTES % (AUTO) 12.7 % (20.0-45.0); MEAN CORPUSCULAR VOLUME 87 FL (80-99); MONOCYTES % (AUTO) 8.5 % (1.0-10.0); NEUTROPHILS % (AUTO) 74.6 % (45.0-75.0); PLATELET COUNT 281 K/UL (150-450); RED BLOOD COUNT 2.99 M/UL (4.70-6.10); RED CELL DISTRIBUTION WIDTH 15.5 % (11.6-14.8); WHITE BLOOD COUNT 11.9 K/UL (4.8-10.8)
[2017-12-08] MEDS ORDERED: Lidocaine 1% Plain 30 ml INJ SCH (08:00)
[2017-12-08] MEDS ORDERED: Heparin 2000 units/Ns 1000ml INJ SCH (08:00)
[2017-12-08 08:15] LABS: % IRON SATURATION 14 % (15-50); IRON 18 ug/dL (50-175); TOTAL IRON BINDING CAPACITY 127 ug/dL (250-450)
[2017-12-08 08:26] LABS: ALANINE AMINOTRANSFERASE 47 U/L (12-78); ALBUMIN 1.6 G/DL (3.4-5.0); ALBUMIN/GLOBULIN RATIO 0.3 (1.0-2.7); ALKALINE PHOSPHATASE 142 U/L (46-116); ANION GAP 10 mmol/L (5-15); ASPARTATE AMINO TRANSFERASE 30 U/L (15-37); BILIRUBIN,TOTAL 0.3 MG/DL (0.2-1.0); BLOOD UREA NITROGEN 34 mg/dL (7-18); CALCIUM 8.6 MG/DL (8.5-10.1); CARBON DIOXIDE 24 MMOL/L (21-32); CHLORIDE 108 MMOL/L (98-107); CREATININE 3.5 MG/DL (0.55-1.30); FERRITIN 251 NG/ML (8-388); SODIUM 142 MMOL/L (136-145)
[2017-12-08 09:44] LABS: PHOSPHORUS 4.5 MG/DL (2.5-4.9)
[2017-12-08 09:52] LABS: CREATINE KINASE 92 U/L (26-308)
[2017-12-08] MEDS: Aspirin EC 81mg tab ORAL SCH (10:30)
[2017-12-08] MEDS ORDERED: LR 1000ml 1,000 ML IVLG SCH (11:24)
--- NOTE | 2017-12-08 11:29 | Anethesia Preoperative Eval ---
Anesthesia Pre-op PMH/ROS General Date of Evaluation: Dec 08, 2017 Anesthesiologist: Ward ASA Score: ASA 3 Mallampati Score Class I : Soft palate, uvula, fauces, pillars visible Class II: Soft palate, uvula, fauces visible Class III: Soft palate, base of uvula visible Class IV: Only hard plate visible Mallampati Classification: Class II Surgeon: Jina Diagnosis: Abd Pain Surgical Procedure: EGD/Colonoscopy Anesthesia History: none Family History: no anesthesia problems Allergies: Coded Allergies: No Known Allergies (Unverified , 12/04/17) Medications: see eMAR Past Medical History Cardiovascular: Reports: HTN, arrhythmia - AfIb Gastrointestinal/Genitourinary: Reports: CRI Endocrine: Reports: DM Hematology/Immune: Reports: anemia PSxH Narrative: R Foot Amp Anesthesia Pre-op Phys. Exam Physician Exam Last Vital Signs Date Time Temp Pulse Resp B/P (MAP) Pulse Ox O2 Delivery O2 Flow Rate FiO2 12/08/17 10:23 77 182/111 12/08/17 09:00 Room Air 12/08/17 09:00 97.8 20 97 97.8 Constitutional: NAD Neurologic: CN 2-12 intact Cardiovascular: RRR Respiratory: CTA Gastrointestinal: S/NT/ND Airway Exam Mallampati Score: Class II MO: limited ROM: limited Teeth: missing, intact, broken Anesthesia Pre-op A/P Labs Hematology Test 12/08/17 07:00 White Blood Count 11.9 K/UL (4.8-10.8) H Red Blood Count 2.99 M/UL (4.70-6.10) L Hemoglobin 8.5 G/DL (14.2-18.0) L Hematocrit 25.9 % (42.0-52.0) L Mean Corpuscular Volume 87 FL (80-99) Mean Corpuscular Hemoglobin 28.4 PG (27.0-31.0) Mean Corpuscular Hemoglobin Concent 32.7 G/DL (32.0-36.0) Red Cell Distribution Width 15.5 % (11.6-14.8) H Platelet Count 281 K/UL (150-450) Mean Platelet Volume 6.1 FL (6.5-10.1) L Neutrophils (%) (Auto) 74.6 % (45.0-75.0) Lymphocytes (%) (Auto) 12.7 % (20.0-45.0) L Monocytes (%) (Auto) 8.5 % (1.0-10.0) Eosinophils (%) (Auto) 3.1 % (0.0-3.0) H Basophils (%) (Auto) 1.1 % (0.0-2.0) Reticulocyte Count 1.2 % (0.0-2.0) Coagulation Test 12/08/17 07:00 Prothrombin Time 11.0 SEC (9.30-11.50) Prothromb Time International Ratio 1.0 (0.9-1.1) Activated Partial Thromboplast Time 30 SEC (23-33) Chemistry Test 12/08/17 07:00 Sodium Level 142 MMOL/L (136-145) Potassium Level 4.0 MMOL/L (3.5-5.1) Chloride Level 108 MMOL/L (98-107) H Carbon Dioxide Level 24 MMOL/L (21-32) Anion Gap 10 mmol/L (5-15) Blood Urea Nitrogen 34 mg/dL (7-18) H Creatinine 3.5 MG/DL (0.55-1.30) H Estimat Glomerular Filtration Rate 18.1 mL/min (>60) Glucose Level 76 MG/DL (74-106) Uric Acid 5.5 MG/DL (2.6-7.2) Calcium Level 8.6 MG/DL (8.5-10.1) Phosphorus Level 4.5 MG/DL (2.5-4.9) Magnesium Level 1.9 MG/DL (1.8-2.4) Iron Level 18 ug/dL (50-175) L Total Iron Binding Capacity 127 ug/dL (250-450) L Percent Iron Saturation 14 % (15-50) L Unsaturated Iron Binding 109 ug/dL (112-346) L Ferritin 251 NG/ML (8-388) Total Bilirubin 0.3 MG/DL (0.2-1.0) Aspartate Amino Transf (AST/SGOT) 30 U/L (15-37) Alanine Aminotransferase (ALT/SGPT) 47 U/L (12-78) Alkaline Phosphatase 142 U/L (46-116) H Total Creatine Kinase 92 U/L (26-308) Total Protein 7.0 G/DL (6.4-8.2) Albumin 1.6 G/DL (3.4-5.0) L Globulin 5.4 g/dL Albumin/Globulin Ratio 0.3 (1.0-2.7) L Carcinoembryonic Antigen Pending Vitamin B12 Level 660 PG/ML (193-986) Folate 10.2 NG/ML (8.6-58.9) Thyroid Stimulating Hormone (TSH) 3.806 uiU/mL (0.358-3.740) Free Thyroxine 0.88 NG/DL (0.76-1.46) Risk Assessment & Plan Assessment: ASA 3 Plan: GA Status Change Before Surgery: Trevin Montgomery MD Dec 08, 2017 11:29
[2017-12-08] MEDS ORDERED: Norco 5mg/325mg tab ORAL PRN (11:30)
[2017-12-08] MEDS ORDERED: HYDROcodone/Acetamin 7.5/325 tab ORAL PRN (11:30)
[2017-12-08] MEDS ORDERED: LORazepam Inj 2mg/ml 1ml IV PRN (11:30)
[2017-12-08] MEDS ORDERED: Hydromorphone 0.5mg/0.5ml inj IVP PRN (11:30)
[2017-12-08] MEDS ORDERED: oxyCODONE HCL/Acetaminophen 5/325mg ORAL PRN (11:30)
[2017-12-08] MEDS ORDERED: Metoclopramide 10mg/2ml Inj IVP PRN (11:30)
[2017-12-08] MEDS ORDERED: Atropine Inj 1mg/10ml Syr IV PRN (11:30)
[2017-12-08] MEDS ORDERED: DiphenhydrAMINE 50mg/ml Inj IVP PRN (11:30)
[2017-12-08] MEDS ORDERED: fentaNYL 100 mcg/2 mL IV PRN (11:30)
[2017-12-08] MEDS ORDERED: Midazolam 2mg/2ml Inj IVP PRN (11:30)
[2017-12-08] MEDS ORDERED: NS 500ML IVPB ONE ×2 (11:53→13:01)
--- NOTE | 2017-12-08 11:54 | Diagnostic Imaging Report ---
Indications: Needs long-term IV access Technique: Ultrasound confirms patent compressible right basilic vein. Total sterile technique, including sterile probe cover and sterile gel, hat, mask, sterile gown, large sterile drape, and preparation with 2% chlorhexidine utilized. Local anesthesia with 1% lidocaine. Under real-time ultrasound guidance, puncture right basilic vein using 21-gauge needle, documented and archived, passage 0.018 guidewire under direct fluoroscopy, which was used to determine appropriate catheter length, exchange for 5 Somali peel-away sheath. 5 Somali Bard dual-lumen power PICC cut to 39 cm. It was inserted through the peel-away sheath. Peel-away sheath and guidewire removed. Catheter fixed to the skin. Both catheter ports aspirated and flushed. Patient tolerated procedure well, without immediate complication. Digital radiograph documents satisfactory catheter tip position, at the cavoatrial junction. Total fluoroscopy time 0.3 minutes. Total dose area product 15 dGycm2 Total number images-1 Impression: Successful placement of right arm PICC under sonographic and fluoroscopic guidance, as described above.
[2017-12-08] MEDS ORDERED: HydrALAZINE 10mg Tab ORAL SCH (12:00)
--- NOTE | 2017-12-08 12:02 | Immediate Post-Op Evaluation ---
Immediate Post-Op Evalulation Immediate Post-Op Evalulation Procedure: EGD/Colonoscopy Date of Evaluation: Dec 08, 2017 Time of Evaluation: 13:34 IV Fluids: 500 NS Blood Products: 0 Estimated Blood Loss: 10 Urinary Output: 0 Blood Pressure Systolic: 166 Blood Pressure Diastolic: 96 Pulse Rate: 60 Respiratory Rate: 16 O2 Sat by Pulse Oximetry: 100 Temperature (Fahrenheit): 98.2 Pain Score (1-10): 1 Nausea: No Vomiting: No Complications 0 Patient Status: awake, reacts, patent, none Hydration Status: adequate Trevin Hopper MD Dec 08, 2017 12:02
--- NOTE | 2017-12-08 12:06 | Pre-Procedure Note/Attestation ---
Pre-Procedure Note/Attestation Complete Prior to Procedure Planned Procedure: not applicable Procedure Narrative: esophagogastroduodenoscopy and colonoscopy Indications for Procedure Pre-Operative Diagnosis: anemia Attestation I attest that I discussed the nature of the procedure; its benefits; risks and complications; and alternatives (and the risks and benefits of such alternatives ), prior to the procedure, with the patient (or the patient's legal parts sales representative). I attest that, if there was a reasonable possibility of needing a blood transfusion, the patient (or the patient's legal parts sales representative) was given the [facility] standardized written summary, pursuant to the Noel Shiela Blood Safety Act ([place] Health and Safety Code # 1645, as amended). I attest that I re-evaluated the patient just prior to the surgery and that there has been no change in the patient's H&P, except as documented below: Carlos Muro MD Dec 08, 2017 12:06
--- NOTE | 2017-12-08 12:33 | 48 Hour Post Anesthesia Eval ---
Post Anesthesia Evaluation Procedure: EGD/Colonoscopy Date of Evaluation: Dec 08, 2017 Time of Evaluation: 15:41 Blood Pressure Systolic: 173 0: 98 Pulse Rate: 62 Respiratory Rate: 18 Temperature (Fahrenheit): 98.2 O2 Sat by Pulse Oximetry: 100 Airway: patent Nausea: No Vomiting: No Pain Intensity: 1 Hydration Status: adequate Cardiopulmonary Status: Stable Mental Status/LOC: patient returned to baseline Follow-up Care/Observations: 0 Post-Anesthesia Complications: 0 Follow-up care needed: N/A Trevin Hopper MD Dec 08, 2017 12:33
--- NOTE | 2017-12-08 13:14 | Endoscopy Procedure Note ---
Endoscopy Procedure Note General Indication for Procedure: anemia Procedures Performed: EGD, colonoscopy Operative Findings/Diagnosis: 6 polyps Specimen: yes Pt Tolerated Procedure Well: Yes Estimated Blood Loss: none Anesthesia Anesthesiologist: mayur Anesthesia: MAC Inserted Devices Implant(s) used?: No Quality Quality of Bowel Preparation: Good Did scope reach the cecum?: Yes Was there any complications?: No GI Core Measures 50 yrs or older w/o bx or poly: No 10yrs. F/U not recommended: Yes If not recommended, why?: Above average risk 10 yrs. F/U needed: Yes 18 years or older w/prev. colo: No Carlos Muro MD Dec 08, 2017 13:14
--- NOTE | 2017-12-08 13:30 | General Progress Note ---
Assessment/Plan Status: stable, progressing Assessment/Plan Adjustment d/o anxiety d/o ativan prn ro/st Subjective Date patient seen: Dec 08, 2017 Neurologic/Psychiatric: Reports: anxiety, depressed Allergies: Coded Allergies: No Known Allergies (Unverified , 12/04/17) Objective Last 24 Hour Vital Signs Date Time Temp Pulse Resp B/P (MAP) Pulse Ox O2 Delivery O2 Flow Rate FiO2 12/08/17 13:25 208.8 62 18 100 12/08/17 13:23 208.8 60 16 100 12/08/17 10:23 77 182/111 12/08/17 09:00 Room Air 12/08/17 09:00 97.8 79 20 195/113 (140) 97 97.8 12/08/17 08:15 206/115 12/08/17 08:00 97.8 89 20 206/115 (145) 97 97.8 12/08/17 06:56 175/99 12/08/17 04:00 98.4 70 20 175/99 (124) 100 98.4 12/08/17 04:00 70 12/08/17 00:14 173/97 12/08/17 00:00 70 12/08/17 00:00 98.4 76 21 176/95 (122) 99 98.4 12/07/17 21:50 192/106 12/07/17 21:00 Room Air 12/07/17 20:00 98.9 83 21 192/106 (134) 94 98.9 12/07/17 20:00 76 12/07/17 18:37 97.3 88 19 179/103 (128) 96 97.3 12/07/17 18:22 97.0 85 19 184/102 (129) 96 97.0 12/07/17 17:55 97.2 86 19 161/99 (119) 96 97.2 12/07/17 17:54 161/99 12/07/17 16:19 172/102 12/07/17 16:00 87 12/07/17 16:00 98.9 89 19 172/102 (125) 96 98.9 12/07/17 14:41 182/108 Intake and Output 12/07/17 12/08/17 19:00 07:00 Intake Total 520 ml Balance 520 ml Intake Oral 520 ml # Voids 4 3 # Bowel Movements 1 Laboratory Tests 12/08/17 07:00: White Blood Count 11.9H, Red Blood Count 2.99L, Hemoglobin 8.5L, Hematocrit 25.9L, Mean Corpuscular Volume 87, Mean Corpuscular Hemoglobin 28.4, Mean Corpuscular Hemoglobin Concent 32.7, Red Cell Distribution Width 15.5H, Platelet Count 281, Mean Platelet Volume 6.1L, Neutrophils (%) (Auto) 74.6, Lymphocytes (%) (Auto) 12.7L, Monocytes (%) (Auto) 8.5, Eosinophils (%) (Auto) 3.1H, Basophils (%) (Auto) 1.1, Reticulocyte Count 1.2, Prothrombin Time 11.0, Prothromb Time International Ratio 1.0, Activated Partial Thromboplast Time 30, Sodium Level 142, Potassium Level 4.0, Chloride Level 108H, Carbon Dioxide Level 24, Anion Gap 10, Blood Urea Nitrogen 34H, Creatinine 3.5H, Estimat Glomerular Filtration Rate 18.1, Glucose Level 76, Uric Acid 5.5, Calcium Level 8.6, Phosphorus Level 4.5, Magnesium Level 1.9, Iron Level 18L, Total Iron Binding Capacity 127L, Percent Iron Saturation 14L, Unsaturated Iron Binding 109L, Ferritin 251, Total Bilirubin 0.3, Aspartate Amino Transf (AST/SGOT) 30, Alanine Aminotransferase (ALT/SGPT) 47, Alkaline Phosphatase 142H, Total Creatine Kinase 92, Total Protein 7.0, Albumin 1.6L, Globulin 5.4, Albumin/ Globulin Ratio 0.3L, Carcinoembryonic Antigen [Pending], Vitamin B12 Level 660, Folate 10.2, Thyroid Stimulating Hormone (TSH) 3.806H, Free Thyroxine 0.88 12/08/17 07:08: Stool Occult Blood Negative Height (Feet): 5 Height (Inches): 6.00 Weight (Pounds): 190 General Appearance: no apparent distress, alert Neurologic: oriented x 3 Toney Joseph MD Dec 08, 2017 13:30
--- NOTE | 2017-12-08 15:33 | Cardiology Report ---
APPROVED REPORT EXAM: Two-dimensional and M-mode echocardiogram with Doppler and color Doppler. INDICATION Congestive Heart Failure M-Mode DIMENSIONS IVSd1.3 (0.7-1.1cm)Left Atrium (MM)3.9 (1.6-4.0cm) LVDd5.0 (3.5-5.6cm)Aortic Root4.0 (2.0-3.7cm) PWd1.1 (0.7-1.1cm)Aortic Cusp Exc.2.1 (1.5-2.0cm) LVDs3.1 (2.5-4.0cm) PWs1.8 cm Normal left ventricular chamber size, systolic function and wall motion. Left ventricular ejection fraction estimated to be 55-60 %. Mild left ventricular hypertrophy. Anterior Echo-free space, may be due to pericardial fat or effusion. Moderate left atrial enlargement. Right atrial size at upper limits of normal. Right ventricular chamber size is within normal limits. Mild focal aortic valve sclerosis with adequate cusp excursion. Mildly thickened mitral valve leaflets with normal excursion. Mild mitral annulus and aortic root calcification. Aortic root dilatation. Normal pulmonic valve structure. Normal tricuspid valve structure. IVC dilated at 2.8 cm without physiologic collapse suggestive of RA pressure 20 mmHg. A color flow and spectral Doppler study was performed and revealed: Trace aortic regurgitation. Moderate mitral regurgitation. Mitral diastolic velocities suggest reduced left ventricular relaxation c/w mild LV diastolic dysfunction (Grade I). Moderate tricuspid regurgitation. Tricuspid systolic velocities suggests peak right ventricular systolic pressure of 88 mmHg, consistent with severe pulmonary hypertension.
--- NOTE | 2017-12-08 15:36 | Consultation ---
Consult Note Consult Note asked to eval for renal failure- HPI 57 year old male with multiple medical comorbidities currently living in nursing facility was noted to have significant anemia and was transported to [facility] ED for workup and care. upon admission patient noted to have bilateral lower extremity amputations with left midfoot and right partial. on right foot there is a large open complex wound at the heel. patient states he has had for some time now and has not been healing well. surgery called to evaluate and assist with care. patient seen, chart reviewed, patient examined. No Known Allergies (Unverified , 12/04/17) Full Code Past Medical/Surgical History: (1) Ulcer of right heel and midfoot with fat layer exposed (2) Anemia (3) Diabetes (4) Renal insufficiency (5) CVA (cerebral vascular accident) (6) Hypertension (7) Diabetic foot ulcer interviewed examined data reviewed poor historian . Assessment/Plan Renal failure- likely chronic due to diabetic nephropathy Anemia Proteinuria / Hypoalbuminemia HTN OOC Diabetic foot ULCER BP management- Wound care Avoid nephrotoxics Manage Anemia Monitor renal parameters Gino Connors MD Dec 08, 2017 15:36
[2017-12-08] MEDS ORDERED: D5 1/2NS 1,000 ML IV SCH (16:00)
--- NOTE | 2017-12-08 16:08 | General Progress Note ---
Assessment/Plan Status: unchanged Assessment/Plan 1. Anemia due to underlying chronic disease. --> Continue to closely monitor for improvement. --> Anemia panel has been reviewed, will trend daily. --> Hgb goal >7 2. Anemia due to underlying kidney disease. --> Closely monitor for improvement. 3. Mild protein-caloric malnutrition. 4. Leukocytosis potentially secondary to reactive process. --> Cont abx --> WBC unchanged. 5. Diabetes mellitus. A1c goal less than 7. 6. Constipation. Endoscopy as per gastrointestinal service. Subjective Date patient seen: Dec 08, 2017 ROS Limited/Unobtainable: Yes Constitutional: Reports: malaise Gastrointestinal/Abdominal: Reports: abdominal pain Hematologic/Lymphatic: Reports: anemia Allergies: Coded Allergies: No Known Allergies (Unverified , 12/04/17) All Systems: reviewed and negative except above Subjective Pt s/p EGD and colonoscopy. No acute distress. Objective Last 24 Hour Vital Signs Date Time Temp Pulse Resp B/P (MAP) Pulse Ox O2 Delivery O2 Flow Rate FiO2 12/08/17 14:09 68 16 184/110 100 Nasal Cannula 2 12/08/17 14:03 67 16 180/100 100 Nasal Cannula 2 12/08/17 13:45 68 16 173/96 100 Nasal Cannula 2 12/08/17 13:33 65 16 173/96 100 Simple Mask 8 12/08/17 13:28 60 16 173/96 100 Simple Mask 8 12/08/17 13:25 208.8 62 18 100 12/08/17 13:23 98.2 60 16 166/96 100 Simple Mask 8 98.2 12/08/17 13:23 208.8 60 16 100 12/08/17 10:23 77 182/111 12/08/17 09:00 Room Air 12/08/17 09:00 97.8 79 20 195/113 (140) 97 97.8 12/08/17 08:15 206/115 12/08/17 08:00 97.8 89 20 206/115 (145) 97 97.8 12/08/17 08:00 79 12/08/17 06:56 175/99 12/08/17 04:00 98.4 70 20 175/99 (124) 100 98.4 12/08/17 04:00 70 12/08/17 00:14 173/97 12/08/17 00:00 70 12/08/17 00:00 98.4 76 21 176/95 (122) 99 98.4 12/07/17 21:50 192/106 12/07/17 21:00 Room Air 12/07/17 20:00 98.9 83 21 192/106 (134) 94 98.9 12/07/17 20:00 76 12/07/17 18:37 97.3 88 19 179/103 (128) 96 97.3 12/07/17 18:22 97.0 85 19 184/102 (129) 96 97.0 12/07/17 17:55 97.2 86 19 161/99 (119) 96 97.2 12/07/17 17:54 161/99 12/07/17 16:19 172/102 Intake and Output 12/07/17 12/08/17 19:00 07:00 Intake Total 520 ml Balance 520 ml Intake Oral 520 ml # Voids 4 3 # Bowel Movements 1 Laboratory Tests 12/08/17 07:00: White Blood Count 11.9H, Red Blood Count 2.99L, Hemoglobin 8.5L, Hematocrit 25.9L, Mean Corpuscular Volume 87, Mean Corpuscular Hemoglobin 28.4, Mean Corpuscular Hemoglobin Concent 32.7, Red Cell Distribution Width 15.5H, Platelet Count 281, Mean Platelet Volume 6.1L, Neutrophils (%) (Auto) 74.6, Lymphocytes (%) (Auto) 12.7L, Monocytes (%) (Auto) 8.5, Eosinophils (%) (Auto) 3.1H, Basophils (%) (Auto) 1.1, Reticulocyte Count 1.2, Prothrombin Time 11.0, Prothromb Time International Ratio 1.0, Activated Partial Thromboplast Time 30, Sodium Level 142, Potassium Level 4.0, Chloride Level 108H, Carbon Dioxide Level 24, Anion Gap 10, Blood Urea Nitrogen 34H, Creatinine 3.5H, Estimat Glomerular Filtration Rate 18.1, Glucose Level 76, Uric Acid 5.5, Calcium Level 8.6, Phosphorus Level 4.5, Magnesium Level 1.9, Iron Level 18L, Total Iron Binding Capacity 127L, Percent Iron Saturation 14L, Unsaturated Iron Binding 109L, Ferritin 251, Total Bilirubin 0.3, Aspartate Amino Transf (AST/SGOT) 30, Alanine Aminotransferase (ALT/SGPT) 47, Alkaline Phosphatase 142H, Total Creatine Kinase 92, C-Reactive Protein, Quantitative 9.7H, Total Protein 7.0, Albumin 1.6L, Globulin 5.4, Albumin/Globulin Ratio 0.3L, Carcinoembryonic Antigen [Pending], Vitamin B12 Level 660, Folate 10.2, Thyroid Stimulating Hormone (TSH) 3.806H, Free Thyroxine 0.88 12/08/17 07:08: Stool Occult Blood Negative Height (Feet): 5 Height (Inches): 6.00 Weight (Pounds): 190 General Appearance: no apparent distress, lethargic EENT: PERRL/EOMI Neck: normal alignment Cardiovascular: irregularly irregular Respiratory/Chest: normal breath sounds, no respiratory distress Abdomen: tender Ronnie Bray MD Dec 08, 2017 16:08
--- NOTE | 2017-12-08 17:00 | Procedure Note ---
DATE OF PROCEDURE: 12/08/2017 SURGEON: Carlos Muro M.D. ANESTHESIOLOGIST: Dr. Hopper. REFERRING PHYSICIAN: Romaine Molina M.D. PROCEDURE: Upper endoscopy with biopsy and colonoscopy with snare polypectomy and biopsy. ANESTHESIA: Per Dr. Hopper. INSTRUMENT: Olympus adult flexible upper endoscope and colonoscope. INDICATION: Anemia. The procedure, risks, benefits, and possible consequences, including hemorrhage, aspiration, perforation and infection, and alternative treatments, were explained to the patient/legal guardian by Dr. Carlos Muro and the patient/legal guardian understood and accepted these risks. DESCRIPTION OF PROCEDURE: After informed consent was obtained and the patient was adequately sedated, Olympus upper endoscope was advanced from the mouth into the second portion of the duodenum and retroflexion was performed in the stomach. The patient had 2 different types of gastric polyps, one in the prepyloric region measured about 5 mm, removed with the cold biopsy forceps technique, and another one more proximal, looked a little bit different, little bit whitish surface, also was biopsied. Then subsequently, we randomly biopsied the antrum. At this time, the upper endoscope was retrieved. The patient was turned over for colonoscopy. First, rectal exam was performed which was normal. Then, the scope was advanced from the rectum into the cecum and then subsequently terminal ileum. Quality of prep was good. The patient had a total of 6 polyps in this colonoscopy examination. Five of these polyps were large and required snare polypectomy technique. Five out of six of these polyps were pedunculated. The largest one measured about 2.5 mm in size. There were three in the ascending colon and three in the transverse colon. This procedure was very prolonged. It took us four times going back to the colon and removing all these polyps using a snare polypectomy and also using [employer]. At the end of the procedure, we removed six polyps as mentioned above. SUMMARY OF FINDINGS: 1. Gastritis. 2. Gastric polyps. 3. Six colonic polyps removed, see above for details. 4. Internal hemorrhoids. RECOMMENDATIONS: 1. Follow up biopsy results. 2. We recommend repeat colonoscopy in three years. I want to thank Dr. Molina for this kind referral. Carlos Pop Muro DR: Patrice JOB#: [id number] CC: Romaine Molina M.D.; Fax#: [phone]
--- NOTE | 2017-12-08 17:00 | Cardiology Report ---
APPROVED REPORT EKG Measurement Heart [id number] Sinus rhythm Low voltage QRS Cannot rule out Anterior infarct, age undetermined Abnormal ECG
--- NOTE | 2017-12-08 17:09 | General Surgery Progress Note ---
General Surgery-Progress Note Subjective Symptoms: improved Additional Comments doing well. no acute events. MRI completed Objective Last 24 Hour Vital Signs Date Time Temp Pulse Resp B/P (MAP) Pulse Ox O2 Delivery O2 Flow Rate FiO2 12/08/17 16:15 189/108 12/08/17 16:00 97.0 73 16 189/108 (135) 99 97.0 12/08/17 14:09 68 16 184/110 100 Nasal Cannula 2 12/08/17 14:03 67 16 180/100 100 Nasal Cannula 2 12/08/17 13:45 68 16 173/96 100 Nasal Cannula 2 12/08/17 13:33 65 16 173/96 100 Simple Mask 8 12/08/17 13:28 60 16 173/96 100 Simple Mask 8 12/08/17 13:25 208.8 62 18 100 12/08/17 13:23 98.2 60 16 166/96 100 Simple Mask 8 98.2 12/08/17 13:23 208.8 60 16 100 12/08/17 10:23 77 182/111 12/08/17 09:00 Room Air 12/08/17 09:00 97.8 79 20 195/113 (140) 97 97.8 12/08/17 08:15 206/115 12/08/17 08:00 97.8 89 20 206/115 (145) 97 97.8 12/08/17 08:00 79 12/08/17 06:56 175/99 12/08/17 04:00 98.4 70 20 175/99 (124) 100 98.4 12/08/17 04:00 70 12/08/17 00:14 173/97 12/08/17 00:00 70 12/08/17 00:00 98.4 76 21 176/95 (122) 99 98.4 12/07/17 21:50 192/106 12/07/17 21:00 Room Air 12/07/17 20:00 98.9 83 21 192/106 (134) 94 98.9 12/07/17 20:00 76 12/07/17 18:37 97.3 88 19 179/103 (128) 96 97.3 18 18:22 97.0 85 19 184/102 (129) 96 97.0 12/07/17 17:55 97.2 86 19 161/99 (119) 96 97.2 12/07/17 17:54 161/99 I&O Intake and Output 12/07/17 12/08/17 19:00 07:00 Intake Total 520 ml Balance 520 ml Intake Oral 520 ml # Voids 4 3 # Bowel Movements 1 Dressing: saturated Wound: clean Drains: none Cardiovascular: RSR Respiratory: clear Abdomen: soft Extremities: edema, no tenderness Laboratory Tests Test 12/08/17 07:00 12/08/17 07:08 White Blood Count 11.9 K/UL (4.8-10.8) H Red Blood Count 2.99 M/UL (4.70-6.10) L Hemoglobin 8.5 G/DL (14.2-18.0) L Hematocrit 25.9 % (42.0-52.0) L Mean Corpuscular Volume 87 FL (80-99) Mean Corpuscular Hemoglobin 28.4 PG (27.0-31.0) Mean Corpuscular Hemoglobin Concent 32.7 G/DL (32.0-36.0) Red Cell Distribution Width 15.5 % (11.6-14.8) H Platelet Count 281 K/UL (150-450) Mean Platelet Volume 6.1 FL (6.5-10.1) L Neutrophils (%) (Auto) 74.6 % (45.0-75.0) Lymphocytes (%) (Auto) 12.7 % (20.0-45.0) L Monocytes (%) (Auto) 8.5 % (1.0-10.0) Eosinophils (%) (Auto) 3.1 % (0.0-3.0) H Basophils (%) (Auto) 1.1 % (0.0-2.0) Reticulocyte Count 1.2 % (0.0-2.0) Prothrombin Time 11.0 SEC (9.30-11.50) Prothromb Time International Ratio 1.0 (0.9-1.1) Activated Partial Thromboplast Time 30 SEC (23-33) Sodium Level 142 MMOL/L (136-145) Potassium Level 4.0 MMOL/L (3.5-5.1) Chloride Level 108 MMOL/L (98-107) H Carbon Dioxide Level 24 MMOL/L (21-32) Anion Gap 10 mmol/L (5-15) Blood Urea Nitrogen 34 mg/dL (7-18) H Creatinine 3.5 MG/DL (0.55-1.30) H Estimat Glomerular Filtration Rate 18.1 mL/min (>60) Glucose Level 76 MG/DL (74-106) Uric Acid 5.5 MG/DL (2.6-7.2) Calcium Level 8.6 MG/DL (8.5-10.1) Phosphorus Level 4.5 MG/DL (2.5-4.9) Magnesium Level 1.9 MG/DL (1.8-2.4) Iron Level 18 ug/dL (50-175) L Total Iron Binding Capacity 127 ug/dL (250-450) L Percent Iron Saturation 14 % (15-50) L Unsaturated Iron Binding 109 ug/dL (112-346) L Ferritin 251 NG/ML (8-388) Total Bilirubin 0.3 MG/DL (0.2-1.0) Aspartate Amino Transf (AST/SGOT) 30 U/L (15-37) Alanine Aminotransferase (ALT/SGPT) 47 U/L (12-78) Alkaline Phosphatase 142 U/L (46-116) H Total Creatine Kinase 92 U/L (26-308) C-Reactive Protein, Quantitative 9.7 mg/dL (0.00-0.90) H Total Protein 7.0 G/DL (6.4-8.2) Albumin 1.6 G/DL (3.4-5.0) L Globulin 5.4 g/dL Albumin/Globulin Ratio 0.3 (1.0-2.7) L Carcinoembryonic Antigen Pending Vitamin B12 Level 660 PG/ML (193-986) Folate 10.2 NG/ML (8.6-58.9) Thyroid Stimulating Hormone (TSH) 3.806 uiU/mL (0.358-3.740) Free Thyroxine 0.88 NG/DL (0.76-1.46) Stool Occult Blood Negative (NEGATIVE) Plan Problems: (1) Anemia (2) Diabetes (3) Ulcer of right heel and midfoot with fat layer exposed Assessment & Plan: left foot amputation, right foot amputation, right foot with large heel ulcer non healing possibly down to bone -MRI right foot -- Extensive diffuse soft tissue edema, nonspecific in appearance but likely on the basis of cellulitis given stated clinical history Possible small 16 mm abscess in the medial ankle subcutaneous fat No osseous signal abnormality to suggest osteomyelitis on exam no abscess noted. no drainable collection seen. -wet to dry dressing to help with debridement of fibrinous debris. -keep off wound -heel protectors. Angel Browning Dec 08, 2017 17:08
--- NOTE | 2017-12-08 17:35 | General Progress Note ---
Assessment/Plan Problem List: (1) Anemia ICD Codes: D64.9 - Anemia, unspecified SNOMED: 059612084 (2) Diabetes ICD Codes: E11.9 - Type 2 diabetes mellitus without complications SNOMED: 31168259, 45507768 (3) Hypertension ICD Codes: I10 - Essential (primary) hypertension SNOMED: 23145876, 62702769 (4) Diabetic foot ulcer ICD Codes: E11.621 - Type 2 diabetes mellitus with foot ulcer; L97.509 - Non- pressure chronic ulcer of other part of unspecified foot with unspecified severity SNOMED: 379568943, 66758277 Status: stable Assessment/Plan afebrile anemia h/h is improved foot osteomylitis picc insertion reviewed chart and labs Subjective ROS Limited/Unobtainable: Yes HEENT: Reports: no symptoms Cardiovascular: Reports: no symptoms Respiratory: Reports: no symptoms Allergies: Coded Allergies: No Known Allergies (Unverified , 12/04/17) Subjective foot pain Objective Last 24 Hour Vital Signs Date Time Temp Pulse Resp B/P (MAP) Pulse Ox O2 Delivery O2 Flow Rate FiO2 12/08/17 17:23 190/107 12/08/17 16:15 189/108 12/08/17 16:00 97.0 73 16 189/108 (135) 99 97.0 12/08/17 14:09 68 16 184/110 100 Nasal Cannula 2 12/08/17 14:03 67 16 180/100 100 Nasal Cannula 2 12/08/17 13:45 68 16 173/96 100 Nasal Cannula 2 12/08/17 13:33 65 16 173/96 100 Simple Mask 8 12/08/17 13:28 60 16 173/96 100 Simple Mask 8 12/08/17 13:25 208.8 62 18 100 12/08/17 13:23 98.2 60 16 166/96 100 Simple Mask 8 98.2 12/08/17 13:23 208.8 60 16 100 12/08/17 10:23 77 182/111 12/08/17 09:00 Room Air 12/08/17 09:00 97.8 79 20 195/113 (140) 97 97.8 12/08/17 08:15 206/115 12/08/17 08:00 97.8 89 20 206/115 (145) 97 97.8 12/08/17 08:00 79 12/08/17 06:56 175/99 12/08/17 04:00 98.4 70 20 175/99 (124) 100 98.4 12/08/17 04:00 70 12/08/17 00:14 173/97 12/08/17 00:00 70 12/08/17 00:00 98.4 76 21 176/95 (122) 99 98.4 12/07/17 21:50 192/106 12/07/17 21:00 Room Air 12/07/17 20:00 98.9 83 21 192/106 (134) 94 98.9 12/07/17 20:00 76 12/07/17 18:37 97.3 88 19 179/103 (128) 96 97.3 12/07/17 18:22 97.0 85 19 184/102 (129) 96 97.0 12/07/17 17:55 97.2 86 19 161/99 (119) 96 97.2 12/07/17 17:54 161/99 Intake and Output 12/07/17 12/08/17 19:00 07:00 Intake Total 520 ml Balance 520 ml Intake Oral 520 ml # Voids 4 3 # Bowel Movements 1 Laboratory Tests 12/08/17 07:00: White Blood Count 11.9H, Red Blood Count 2.99L, Hemoglobin 8.5L, Hematocrit 25.9L, Mean Corpuscular Volume 87, Mean Corpuscular Hemoglobin 28.4, Mean Corpuscular Hemoglobin Concent 32.7, Red Cell Distribution Width 15.5H, Platelet Count 281, Mean Platelet Volume 6.1L, Neutrophils (%) (Auto) 74.6, Lymphocytes (%) (Auto) 12.7L, Monocytes (%) (Auto) 8.5, Eosinophils (%) (Auto) 3.1H, Basophils (%) (Auto) 1.1, Reticulocyte Count 1.2, Prothrombin Time 11.0, Prothromb Time International Ratio 1.0, Activated Partial Thromboplast Time 30, Sodium Level 142, Potassium Level 4.0, Chloride Level 108H, Carbon Dioxide Level 24, Anion Gap 10, Blood Urea Nitrogen 34H, Creatinine 3.5H, Estimat Glomerular Filtration Rate 18.1, Glucose Level 76, Uric Acid 5.5, Calcium Level 8.6, Phosphorus Level 4.5, Magnesium Level 1.9, Iron Level 18L, Total Iron Binding Capacity 127L, Percent Iron Saturation 14L, Unsaturated Iron Binding 109L, Ferritin 251, Total Bilirubin 0.3, Aspartate Amino Transf (AST/SGOT) 30, Alanine Aminotransferase (ALT/SGPT) 47, Alkaline Phosphatase 142H, Total Creatine Kinase 92, C-Reactive Protein, Quantitative 9.7H, Total Protein 7.0, Albumin 1.6L, Globulin 5.4, Albumin/Globulin Ratio 0.3L, Carcinoembryonic Antigen [Pending], Vitamin B12 Level 660, Folate 10.2, Thyroid Stimulating Hormone (TSH) 3.806H, Free Thyroxine 0.88 12/08/17 07:08: Stool Occult Blood Negative Height (Feet): 5 Height (Inches): 6.00 Weight (Pounds): 190 Neck: supple Cardiovascular: normal rate Respiratory/Chest: lungs clear Abdomen: soft Romaine Molina MD Dec 08, 2017 17:35
[2017-12-08] MEDS ORDERED: HydrALAZINE 25mg tab ORAL SCH (18:00)
[2017-12-08] MEDS: Dyna-Hex 2% Top Sol 2oz TOPIC SCH (20:14)
[2017-12-08] MEDS: Atorvastatin 20mg tab ORAL SCH (20:15)
[2017-12-08] MEDS: Tamsulosin 0.4mg cap ORAL SCH (20:15)
[2017-12-09] VITALS (7 sets, daily range): BP systolic 160–185; BP diastolic 93–106
[2017-12-09] MEDS: HydrALAZINE 25mg tab ORAL SCH ×2 (00:24→05:16)
[2017-12-09 04:28] LABS: BASOPHILS % (AUTO) 0.9 % (0.0-2.0); HEMATOCRIT 24.9 % (42.0-52.0); HEMOGLOBIN 8.1 G/DL (14.2-18.0); MEAN CORPUSCULAR VOLUME 85 FL (80-99); MONOCYTES % (AUTO) 11.4 % (1.0-10.0); NEUTROPHILS % (AUTO) 64.7 % (45.0-75.0); PLATELET COUNT 251 K/UL (150-450); RED BLOOD COUNT 2.93 M/UL (4.70-6.10); RED CELL DISTRIBUTION WIDTH 15.4 % (11.6-14.8); WHITE BLOOD COUNT 7.8 K/UL (4.8-10.8)
[2017-12-09 04:44] LABS: ALANINE AMINOTRANSFERASE 35 U/L (12-78); ALBUMIN 1.2 G/DL (3.4-5.0); ALBUMIN/GLOBULIN RATIO 0.3 (1.0-2.7); ALKALINE PHOSPHATASE 119 U/L (46-116); ANION GAP 7 mmol/L (5-15); ASPARTATE AMINO TRANSFERASE 22 U/L (15-37); BILIRUBIN,TOTAL 0.2 MG/DL (0.2-1.0); BLOOD UREA NITROGEN 35 mg/dL (7-18); CALCIUM 7.8 MG/DL (8.5-10.1); CARBON DIOXIDE 26 MMOL/L (21-32); CHLORIDE 109 MMOL/L (98-107); CREATINE KINASE 52 U/L (26-308); CREATININE 3.5 MG/DL (0.55-1.30); GAMMA GLUTAMYL TRANSPEPTIDASE 80 U/L (5-85); PHOSPHORUS 4.8 MG/DL (2.5-4.9); POTASSIUM 3.9 MMOL/L (3.5-5.1); SODIUM 141 MMOL/L (136-145)
[2017-12-09 05:05] LABS: CHOLESTEROL 123 MG/DL (< 200); HDL CHOLESTEROL 69 MG/DL (40-60); TRIGLYCERIDES 61 MG/DL (30-150)
[2017-12-09] MEDS: NovoLOG Insulin Flexpen SUBQ SCH ×4 (05:56→21:02)
[2017-12-09] MEDS: Aspirin EC 81mg tab ORAL SCH (08:47)
--- NOTE | 2017-12-09 08:53 | General Progress Note ---
Assessment/Plan Problem List: (1) Diabetic foot ulcer ICD Codes: E11.621 - Type 2 diabetes mellitus with foot ulcer; L97.509 - Non- pressure chronic ulcer of other part of unspecified foot with unspecified severity SNOMED: 082159155, 40796404 (2) CVA (cerebral vascular accident) ICD Codes: I63.9 - Cerebral infarction, unspecified SNOMED: 112469611 (3) Diabetes ICD Codes: E11.9 - Type 2 diabetes mellitus without complications SNOMED: 59431569, 64435266 (4) Anemia ICD Codes: D64.9 - Anemia, unspecified SNOMED: 322038371 Assessment/Plan s/p EGd and colonoscopy multiple large colonic polyps fu H&H prn blood transfusion fu pathology Subjective ROS Limited/Unobtainable: Yes Allergies: Coded Allergies: No Known Allergies (Unverified , 12/04/17) Objective Last 24 Hour Vital Signs Date Time Temp Pulse Resp B/P (MAP) Pulse Ox O2 Delivery O2 Flow Rate FiO2 12/09/17 08:47 70 169/105 12/09/17 08:00 97.5 70 21 169/105 (126) 98 97.5 12/09/17 05:16 160/97 12/09/17 04:00 69 12/09/17 04:00 98.6 75 20 160/97 (118) 99 98.6 12/09/17 00:24 165/93 12/09/17 00:00 97.2 67 21 165/93 (117) 100 97.2 12/09/17 00:00 59 12/08/17 21:00 Room Air 12/08/17 20:00 62 12/08/17 20:00 97.4 63 20 158/92 (114) 100 97.4 12/08/17 17:23 190/107 12/08/17 16:15 189/108 12/08/17 16:00 97.0 73 16 189/108 (135) 99 97.0 12/08/17 16:00 76 12/08/17 14:09 68 16 184/110 100 Nasal Cannula 2 12/08/17 14:03 67 16 180/100 100 Nasal Cannula 2 12/08/17 13:45 68 16 173/96 100 Nasal Cannula 2 12/08/17 13:33 65 16 173/96 100 Simple Mask 8 12/08/17 13:28 60 16 173/96 100 Simple Mask 8 12/08/17 13:25 208.8 62 18 100 12/08/17 13:23 98.2 60 16 166/96 100 Simple Mask 8 98.2 12/08/17 13:23 208.8 60 16 100 12/08/17 10:23 77 182/111 12/08/17 09:00 Room Air 12/08/17 09:00 97.8 79 20 195/113 (140) 97 97.8 Intake and Output 12/08/17 12/09/17 19:00 07:00 Intake Total 1135 ml 605 ml Output Total 600 ml Balance 535 ml 605 ml Intake Oral 240 ml IV Total 895 ml 605 ml Output Urine Total 600 ml # Voids 1 # Bowel Movements 2 Laboratory Tests 12/09/17 04:00: White Blood Count 7.8, Red Blood Count 2.93L, Hemoglobin 8.1L, Hematocrit 24.9L , Mean Corpuscular Volume 85, Mean Corpuscular Hemoglobin 27.6, Mean Corpuscular Hemoglobin Concent 32.4, Red Cell Distribution Width 15.4H, Platelet Count 251, Mean Platelet Volume 5.9L, Neutrophils (%) (Auto) 64.7, Lymphocytes (%) (Auto) 17.0L, Monocytes (%) (Auto) 11.4H, Eosinophils (%) (Auto ) 6.0H, Basophils (%) (Auto) 0.9, Sodium Level 141, Potassium Level 3.9, Chloride Level 109H, Carbon Dioxide Level 26, Anion Gap 7, Blood Urea Nitrogen 35H, Creatinine 3.5H, Estimat Glomerular Filtration Rate 18.1, Glucose Level 114H, Hemoglobin A1c 6.1H, Uric Acid 6.4, Calcium Level 7.8L, Phosphorus Level 4.8, Magnesium Level 1.6L, Total Bilirubin 0.2, Gamma Glutamyl Transpeptidase 80 , Aspartate Amino Transf (AST/SGOT) 22, Alanine Aminotransferase (ALT/SGPT) 35, Alkaline Phosphatase 119H, Total Creatine Kinase 52, Pro-B-Type Natriuretic Peptide 00381E, Total Protein 5.7L, Albumin 1.2L, Globulin 4.5, Albumin/ Globulin Ratio 0.3L, Triglycerides Level 61, Cholesterol Level 123, LDL Cholesterol 53, HDL Cholesterol 69H, Cholesterol/HDL Ratio 1.8L Height (Feet): 5 Height (Inches): 6.00 Weight (Pounds): 190 General Appearance: no apparent distress EENT: normal ENT inspection Neck: supple Cardiovascular: normal rate Respiratory/Chest: decreased breath sounds Abdomen: normal bowel sounds, non tender, soft Extremities: non-tender Carlos Muro MD Dec 09, 2017 08:53
--- NOTE | 2017-12-09 10:07 | General Progress Note ---
Assessment/Plan Problem List: (1) Anemia ICD Codes: D64.9 - Anemia, unspecified SNOMED: 200697261 (2) Diabetes ICD Codes: E11.9 - Type 2 diabetes mellitus without complications SNOMED: 98210399, 89282206 (3) Hypertension ICD Codes: I10 - Essential (primary) hypertension SNOMED: 97443347, 02440312 (4) Diabetic foot ulcer ICD Codes: E11.621 - Type 2 diabetes mellitus with foot ulcer; L97.509 - Non- pressure chronic ulcer of other part of unspecified foot with unspecified severity SNOMED: 240736764, 20779116 Status: progressing Assessment/Plan s/p polypectomy check for anemia need weeks of abx anemia h/h is improved foot osteomylitis p Subjective ROS Limited/Unobtainable: Yes Allergies: Coded Allergies: No Known Allergies (Unverified , 12/04/17) Subjective foot pain Objective Last 24 Hour Vital Signs Date Time Temp Pulse Resp B/P (MAP) Pulse Ox O2 Delivery O2 Flow Rate FiO2 12/09/17 09:00 Room Air 12/09/17 08:47 70 169/105 12/09/17 08:00 97.5 70 21 169/105 (126) 98 97.5 12/09/17 05:16 160/97 12/09/17 04:00 69 12/09/17 04:00 98.6 75 20 160/97 (118) 99 98.6 12/09/17 00:24 165/93 12/09/17 00:00 97.2 67 21 165/93 (117) 100 97.2 12/09/17 00:00 59 12/08/17 21:00 Room Air 12/08/17 20:00 62 12/08/17 20:00 97.4 63 20 158/92 (114) 100 97.4 12/08/17 17:23 190/107 12/08/17 16:15 189/108 12/08/17 16:00 97.0 73 16 189/108 (135) 99 97.0 12/08/17 16:00 76 12/08/17 14:09 68 16 184/110 100 Nasal Cannula 2 12/08/17 14:03 67 16 180/100 100 Nasal Cannula 2 12/08/17 13:45 68 16 173/96 100 Nasal Cannula 2 12/08/17 13:33 65 16 173/96 100 Simple Mask 8 12/08/17 13:28 60 16 173/96 100 Simple Mask 8 12/08/17 13:25 208.8 62 18 100 12/08/17 13:23 98.2 60 16 166/96 100 Simple Mask 8 98.2 12/08/17 13:23 208.8 60 16 100 12/08/17 10:23 77 182/111 Intake and Output 12/08/17 12/09/17 19:00 07:00 Intake Total 1135 ml 605 ml Output Total 600 ml Balance 535 ml 605 ml Intake Oral 240 ml IV Total 895 ml 605 ml Output Urine Total 600 ml # Voids 1 # Bowel Movements 2 Laboratory Tests 12/09/17 04:00: White Blood Count 7.8, Red Blood Count 2.93L, Hemoglobin 8.1L, Hematocrit 24.9L , Mean Corpuscular Volume 85, Mean Corpuscular Hemoglobin 27.6, Mean Corpuscular Hemoglobin Concent 32.4, Red Cell Distribution Width 15.4H, Platelet Count 251, Mean Platelet Volume 5.9L, Neutrophils (%) (Auto) 64.7, Lymphocytes (%) (Auto) 17.0L, Monocytes (%) (Auto) 11.4H, Eosinophils (%) (Auto ) 6.0H, Basophils (%) (Auto) 0.9, Sodium Level 141, Potassium Level 3.9, Chloride Level 109H, Carbon Dioxide Level 26, Anion Gap 7, Blood Urea Nitrogen 35H, Creatinine 3.5H, Estimat Glomerular Filtration Rate 18.1, Glucose Level 114H, Hemoglobin A1c 6.1H, Uric Acid 6.4, Calcium Level 7.8L, Phosphorus Level 4.8, Magnesium Level 1.6L, Total Bilirubin 0.2, Gamma Glutamyl Transpeptidase 80 , Aspartate Amino Transf (AST/SGOT) 22, Alanine Aminotransferase (ALT/SGPT) 35, Alkaline Phosphatase 119H, Total Creatine Kinase 52, Pro-B-Type Natriuretic Peptide 55790O, Total Protein 5.7L, Albumin 1.2L, Globulin 4.5, Albumin/ Globulin Ratio 0.3L, Triglycerides Level 61, Cholesterol Level 123, LDL Cholesterol 53, HDL Cholesterol 69H, Cholesterol/HDL Ratio 1.8L Height (Feet): 5 Height (Inches): 6.00 Weight (Pounds): 190 Respiratory/Chest: lungs clear Abdomen: soft Romaine Molina MD Dec 09, 2017 10:07
--- NOTE | 2017-12-09 10:22 | General Progress Note ---
Assessment/Plan Status: stable Assessment/Plan 1. Anemia due to underlying chronic disease. --> Continue to closely monitor for improvement. --> Anemia panel has been reviewed, will trend daily. --> Hgb goal >7 2. Anemia due to underlying kidney disease. --> Closely monitor for improvement. 3. Mild protein-caloric malnutrition. 4. Leukocytosis potentially secondary to reactive process. --> Cont abx --> WBC unchanged. 5. Diabetes mellitus. A1c goal less than 7. 6. Constipation. Endoscopy as per gastrointestinal service. Subjective Date patient seen: Dec 09, 2017 ROS Limited/Unobtainable: Yes Hematologic/Lymphatic: Reports: anemia Allergies: Coded Allergies: No Known Allergies (Unverified , 12/04/17) All Systems: reviewed and negative except above Subjective Pt awake and alert. No acute events. Objective Last 24 Hour Vital Signs Date Time Temp Pulse Resp B/P (MAP) Pulse Ox O2 Delivery O2 Flow Rate FiO2 12/09/17 09:00 Room Air 12/09/17 08:47 70 169/105 12/09/17 08:00 97.5 70 21 169/105 (126) 98 97.5 12/09/17 05:16 160/97 12/09/17 04:00 69 12/09/17 04:00 98.6 75 20 160/97 (118) 99 98.6 12/09/17 00:24 165/93 12/09/17 00:00 97.2 67 21 165/93 (117) 100 97.2 12/09/17 00:00 59 12/08/17 21:00 Room Air 12/08/17 20:00 62 12/08/17 20:00 97.4 63 20 158/92 (114) 100 97.4 12/08/17 17:23 190/107 12/08/17 16:15 189/108 12/08/17 16:00 97.0 73 16 189/108 (135) 99 97.0 12/08/17 16:00 76 12/08/17 14:09 68 16 184/110 100 Nasal Cannula 2 12/08/17 14:03 67 16 180/100 100 Nasal Cannula 2 12/08/17 13:45 68 16 173/96 100 Nasal Cannula 2 12/08/17 13:33 65 16 173/96 100 Simple Mask 8 12/08/17 13:28 60 16 173/96 100 Simple Mask 8 12/08/17 13:25 208.8 62 18 100 12/08/17 13:23 98.2 60 16 166/96 100 Simple Mask 8 98.2 12/08/17 13:23 208.8 60 16 100 12/08/17 10:23 77 182/111 Intake and Output 12/08/17 12/09/17 19:00 07:00 Intake Total 1135 ml 605 ml Output Total 600 ml Balance 535 ml 605 ml Intake Oral 240 ml IV Total 895 ml 605 ml Output Urine Total 600 ml # Voids 1 # Bowel Movements 2 Laboratory Tests 12/09/17 04:00: White Blood Count 7.8, Red Blood Count 2.93L, Hemoglobin 8.1L, Hematocrit 24.9L , Mean Corpuscular Volume 85, Mean Corpuscular Hemoglobin 27.6, Mean Corpuscular Hemoglobin Concent 32.4, Red Cell Distribution Width 15.4H, Platelet Count 251, Mean Platelet Volume 5.9L, Neutrophils (%) (Auto) 64.7, Lymphocytes (%) (Auto) 17.0L, Monocytes (%) (Auto) 11.4H, Eosinophils (%) (Auto ) 6.0H, Basophils (%) (Auto) 0.9, Sodium Level 141, Potassium Level 3.9, Chloride Level 109H, Carbon Dioxide Level 26, Anion Gap 7, Blood Urea Nitrogen 35H, Creatinine 3.5H, Estimat Glomerular Filtration Rate 18.1, Glucose Level 114H, Hemoglobin A1c 6.1H, Uric Acid 6.4, Calcium Level 7.8L, Phosphorus Level 4.8, Magnesium Level 1.6L, Total Bilirubin 0.2, Gamma Glutamyl Transpeptidase 80 , Aspartate Amino Transf (AST/SGOT) 22, Alanine Aminotransferase (ALT/SGPT) 35, Alkaline Phosphatase 119H, Total Creatine Kinase 52, Pro-B-Type Natriuretic Peptide 03617X, Total Protein 5.7L, Albumin 1.2L, Globulin 4.5, Albumin/ Globulin Ratio 0.3L, Triglycerides Level 61, Cholesterol Level 123, LDL Cholesterol 53, HDL Cholesterol 69H, Cholesterol/HDL Ratio 1.8L Height (Feet): 5 Height (Inches): 6.00 Weight (Pounds): 190 General Appearance: no apparent distress, alert EENT: PERRL/EOMI Neck: normal alignment Cardiovascular: normal peripheral pulses Respiratory/Chest: no respiratory distress Abdomen: soft, no organomegaly Ronnie Bray MD Dec 09, 2017 10:22
--- NOTE | 2017-12-09 11:11 | General Surgery Progress Note ---
General Surgery-Progress Note Subjective Symptoms: improved, tolerating diet, passing flatus Additional Comments doing well. no acute events. Objective Last 24 Hour Vital Signs Date Time Temp Pulse Resp B/P (MAP) Pulse Ox O2 Delivery O2 Flow Rate FiO2 12/09/17 09:00 Room Air 12/09/17 08:47 70 169/105 12/09/17 08:00 97.5 70 21 169/105 (126) 98 97.5 12/09/17 05:16 160/97 12/09/17 04:00 69 12/09/17 04:00 98.6 75 20 160/97 (118) 99 98.6 12/09/17 00:24 165/93 12/09/17 00:00 97.2 67 21 165/93 (117) 100 97.2 12/09/17 00:00 59 12/08/17 21:00 Room Air 12/08/17 20:00 62 12/08/17 20:00 97.4 63 20 158/92 (114) 100 97.4 12/08/17 17:23 190/107 12/08/17 16:15 189/108 12/08/17 16:00 97.0 73 16 189/108 (135) 99 97.0 12/08/17 16:00 76 12/08/17 14:09 68 16 184/110 100 Nasal Cannula 2 12/08/17 14:03 67 16 180/100 100 Nasal Cannula 2 12/08/17 13:45 68 16 173/96 100 Nasal Cannula 2 12/08/17 13:33 65 16 173/96 100 Simple Mask 8 12/08/17 13:28 60 16 173/96 100 Simple Mask 8 12/08/17 13:25 208.8 62 18 100 12/08/17 13:23 98.2 60 16 166/96 100 Simple Mask 8 98.2 12/08/17 13:23 208.8 60 16 100 I&O Intake and Output 12/08/17 12/09/17 19:00 07:00 Intake Total 1135 ml 605 ml Output Total 600 ml Balance 535 ml 605 ml Intake Oral 240 ml IV Total 895 ml 605 ml Output Urine Total 600 ml # Voids 1 # Bowel Movements 2 Dressing: saturated Wound: clean Drains: none Cardiovascular: RSR Respiratory: clear Abdomen: soft Extremities: edema Laboratory Tests Test 12/09/17 04:00 White Blood Count 7.8 K/UL (4.8-10.8) Red Blood Count 2.93 M/UL (4.70-6.10) L Hemoglobin 8.1 G/DL (14.2-18.0) L Hematocrit 24.9 % (42.0-52.0) L Mean Corpuscular Volume 85 FL (80-99) Mean Corpuscular Hemoglobin 27.6 PG (27.0-31.0) Mean Corpuscular Hemoglobin Concent 32.4 G/DL (32.0-36.0) Red Cell Distribution Width 15.4 % (11.6-14.8) H Platelet Count 251 K/UL (150-450) Mean Platelet Volume 5.9 FL (6.5-10.1) L Neutrophils (%) (Auto) 64.7 % (45.0-75.0) Lymphocytes (%) (Auto) 17.0 % (20.0-45.0) L Monocytes (%) (Auto) 11.4 % (1.0-10.0) H Eosinophils (%) (Auto) 6.0 % (0.0-3.0) H Basophils (%) (Auto) 0.9 % (0.0-2.0) Sodium Level 141 MMOL/L (136-145) Potassium Level 3.9 MMOL/L (3.5-5.1) Chloride Level 109 MMOL/L (98-107) H Carbon Dioxide Level 26 MMOL/L (21-32) Anion Gap 7 mmol/L (5-15) Blood Urea Nitrogen 35 mg/dL (7-18) H Creatinine 3.5 MG/DL (0.55-1.30) H Estimat Glomerular Filtration Rate 18.1 mL/min (>60) Glucose Level 114 MG/DL (74-106) H Hemoglobin A1c 6.1 % (4.3-6.0) H Uric Acid 6.4 MG/DL (2.6-7.2) Calcium Level 7.8 MG/DL (8.5-10.1) L Phosphorus Level 4.8 MG/DL (2.5-4.9) Magnesium Level 1.6 MG/DL (1.8-2.4) L Total Bilirubin 0.2 MG/DL (0.2-1.0) Gamma Glutamyl Transpeptidase 80 U/L (5-85) Aspartate Amino Transf (AST/SGOT) 22 U/L (15-37) Alanine Aminotransferase (ALT/SGPT) 35 U/L (12-78) Alkaline Phosphatase 119 U/L (46-116) H Total Creatine Kinase 52 U/L (26-308) Pro-B-Type Natriuretic Peptide 29861 pg/mL (0-125) H Total Protein 5.7 G/DL (6.4-8.2) L Albumin 1.2 G/DL (3.4-5.0) L Globulin 4.5 g/dL Albumin/Globulin Ratio 0.3 (1.0-2.7) L Triglycerides Level 61 MG/DL (30-150) Cholesterol Level 123 MG/DL (< 200) LDL Cholesterol 53 mg/dL (<100) HDL Cholesterol 69 MG/DL (40-60) H Cholesterol/HDL Ratio 1.8 (3.3-4.4) L Plan Problems: (1) Anemia (2) Diabetes (3) Ulcer of right heel and midfoot with fat layer exposed Assessment & Plan: left foot amputation, right foot amputation, right foot with large heel ulcer non healing possibly down to bone -MRI right foot -- Extensive diffuse soft tissue edema, nonspecific in appearance but likely on the basis of cellulitis given stated clinical history Possible small 16 mm abscess in the medial ankle subcutaneous fat No osseous signal abnormality to suggest osteomyelitis on exam no abscess noted. no drainable collection seen. -wet to dry dressing to help with debridement of fibrinous debris. -keep off wound -heel protectors. Angel Browning Dec 09, 2017 11:11
--- NOTE | 2017-12-09 11:25 | Nephrology Progress Note ---
Assessment/Plan Problem List: (1) Diabetic foot ulcer (2) Anemia in chronic kidney disease (CKD) (3) Renal failure (ARF), acute on chronic (4) Hypertensive urgency Assessment Renal failure- likely chronic due to diabetic nephropathy Anemia Proteinuria / Hypoalbuminemia HTN OOC Diabetic foot ULCER Left ventricular ejection fraction estimated to be 55-60 %. Plan BP management- meds rearranged Wound care Avoid nephrotoxics Manage Anemia Monitor renal parameters per orders kidney NIGEL pending IV Iron Subjective ROS Limited/Unobtainable: No Constitutional: Reports: malaise Objective Objective Last 24 Hour Vital Signs Date Time Temp Pulse Resp B/P (MAP) Pulse Ox O2 Delivery O2 Flow Rate FiO2 12/09/17 09:00 Room Air 12/09/17 08:47 70 169/105 12/09/17 08:00 97.5 70 21 169/105 (126) 98 97.5 12/09/17 05:16 160/97 12/09/17 04:00 69 12/09/17 04:00 98.6 75 20 160/97 (118) 99 98.6 12/09/17 00:24 165/93 12/09/17 00:00 97.2 67 21 165/93 (117) 100 97.2 12/09/17 00:00 59 12/08/17 21:00 Room Air 12/08/17 20:00 62 12/08/17 20:00 97.4 63 20 158/92 (114) 100 97.4 12/08/17 17:23 190/107 12/08/17 16:15 189/108 12/08/17 16:00 97.0 73 16 189/108 (135) 99 97.0 12/08/17 16:00 76 12/08/17 14:09 68 16 184/110 100 Nasal Cannula 2 12/08/17 14:03 67 16 180/100 100 Nasal Cannula 2 12/08/17 13:45 68 16 173/96 100 Nasal Cannula 2 12/08/17 13:33 65 16 173/96 100 Simple Mask 8 12/08/17 13:28 60 16 173/96 100 Simple Mask 8 12/08/17 13:25 208.8 62 18 100 12/08/17 13:23 98.2 60 16 166/96 100 Simple Mask 8 98.2 12/08/17 13:23 208.8 60 16 100 Intake and Output 12/08/17 12/09/17 19:00 07:00 Intake Total 1135 ml 605 ml Output Total 600 ml Balance 535 ml 605 ml Intake Oral 240 ml IV Total 895 ml 605 ml Output Urine Total 600 ml # Voids 1 # Bowel Movements 2 Laboratory Tests 12/09/17 04:00: White Blood Count 7.8, Red Blood Count 2.93L, Hemoglobin 8.1L, Hematocrit 24.9L , Mean Corpuscular Volume 85, Mean Corpuscular Hemoglobin 27.6, Mean Corpuscular Hemoglobin Concent 32.4, Red Cell Distribution Width 15.4H, Platelet Count 251, Mean Platelet Volume 5.9L, Neutrophils (%) (Auto) 64.7, Lymphocytes (%) (Auto) 17.0L, Monocytes (%) (Auto) 11.4H, Eosinophils (%) (Auto ) 6.0H, Basophils (%) (Auto) 0.9, Sodium Level 141, Potassium Level 3.9, Chloride Level 109H, Carbon Dioxide Level 26, Anion Gap 7, Blood Urea Nitrogen 35H, Creatinine 3.5H, Estimat Glomerular Filtration Rate 18.1, Glucose Level 114H, Hemoglobin A1c 6.1H, Uric Acid 6.4, Calcium Level 7.8L, Phosphorus Level 4.8, Magnesium Level 1.6L, Total Bilirubin 0.2, Gamma Glutamyl Transpeptidase 80 , Aspartate Amino Transf (AST/SGOT) 22, Alanine Aminotransferase (ALT/SGPT) 35, Alkaline Phosphatase 119H, Total Creatine Kinase 52, Pro-B-Type Natriuretic Peptide 77820P, Total Protein 5.7L, Albumin 1.2L, Globulin 4.5, Albumin/ Globulin Ratio 0.3L, Triglycerides Level 61, Cholesterol Level 123, LDL Cholesterol 53, HDL Cholesterol 69H, Cholesterol/HDL Ratio 1.8L Height (Feet): 5 Height (Inches): 6.00 Weight (Pounds): 190 General Appearance: no apparent distress Cardiovascular: normal rate Respiratory/Chest: decreased breath sounds Abdomen: soft Gino Connors MD Dec 09, 2017 11:25
[2017-12-09] MEDS ORDERED: Minoxidil 2.5mg tab ORAL PRN (11:30)
[2017-12-09] MEDS ORDERED: Iron Sucrose 200 MG in NS 110 ML IV ONE (12:30)
[2017-12-09] MEDS: HydrALAZINE 50mg tab ORAL SCH ×2 (12:43→21:15)
[2017-12-09] MEDS ORDERED: HydrALAZINE 25mg tab ORAL SCH (14:00)
[2017-12-09] MEDS ORDERED: D5 1/2NS 1000ml IV ONE (17:53)
[2017-12-09] MEDS ORDERED: NS 500ML ONE (17:53)
[2017-12-09] MEDS ORDERED: Tubing IV Secondary IV ONE (17:53)
[2017-12-09] MEDS ORDERED: Tubing Blood Filter IV ONE (17:53)
[2017-12-09] MEDS: Atorvastatin 20mg tab ORAL SCH (20:58)
[2017-12-09] MEDS: Tamsulosin 0.4mg cap ORAL SCH (20:58)
[2017-12-09] MEDS: Dyna-Hex 2% Top Sol 2oz TOPIC SCH (20:58)
[2017-12-09 23:42] LABS: BASOPHILS % (AUTO) 0.8 % (0.0-2.0); EOSINOPHILS % (AUTO) 5.9 % (0.0-3.0); HEMATOCRIT 25.4 % (42.0-52.0); HEMOGLOBIN 8.3 G/DL (14.2-18.0); LYMPHOCYTES % (AUTO) 16.5 % (20.0-45.0); MEAN CORPUSCULAR VOLUME 85 FL (80-99); MONOCYTES % (AUTO) 9.9 % (1.0-10.0); PLATELET COUNT 270 K/UL (150-450); RED BLOOD COUNT 2.99 M/UL (4.70-6.10); RED CELL DISTRIBUTION WIDTH 15.2 % (11.6-14.8); WHITE BLOOD COUNT 8.4 K/UL (4.8-10.8)
[2017-12-10] VITALS: BP 166/80
[2017-12-10 04:00] VITALS: BP 149/79
[2017-12-10] MEDS: HydrALAZINE 50mg tab ORAL SCH ×3 (05:56→21:11)
[2017-12-10] MEDS: NovoLOG Insulin Flexpen SUBQ SCH ×4 (05:57→21:14)
[2017-12-10 07:26] LABS: ALANINE AMINOTRANSFERASE 29 U/L (12-78); ALBUMIN 1.1 G/DL (3.4-5.0); ALBUMIN/GLOBULIN RATIO 0.3 (1.0-2.7); ALKALINE PHOSPHATASE 95 U/L (46-116); ANION GAP 5 mmol/L (5-15); ASPARTATE AMINO TRANSFERASE 18 U/L (15-37); BILIRUBIN,TOTAL 0.2 MG/DL (0.2-1.0); BLOOD UREA NITROGEN 36 mg/dL (7-18); CALCIUM 7.1 MG/DL (8.5-10.1); CARBON DIOXIDE 26 MMOL/L (21-32); CHLORIDE 112 MMOL/L (98-107); CREATININE 3.4 MG/DL (0.55-1.30); PHOSPHORUS 4.8 MG/DL (2.5-4.9); SODIUM 143 MMOL/L (136-145)
[2017-12-10 08:00] VITALS: BP 137/72
--- NOTE | 2017-12-10 08:53 | General Progress Note ---
Assessment/Plan Problem List: (1) Diabetic foot ulcer ICD Codes: E11.621 - Type 2 diabetes mellitus with foot ulcer; L97.509 - Non- pressure chronic ulcer of other part of unspecified foot with unspecified severity SNOMED: 836149762, 77393327 (2) CVA (cerebral vascular accident) ICD Codes: I63.9 - Cerebral infarction, unspecified SNOMED: 658990066 (3) Diabetes ICD Codes: E11.9 - Type 2 diabetes mellitus without complications SNOMED: 41001050, 31349941 (4) Anemia ICD Codes: D64.9 - Anemia, unspecified SNOMED: 432618020 Assessment/Plan s/p EGD and colonoscopy multiple large colonic polyps post large polypectomy bleed fu H&H prn blood transfusion fu pathology clears for today plan colonoscopy tomorrow if rebleeds Subjective ROS Limited/Unobtainable: Yes Allergies: Coded Allergies: No Known Allergies (Unverified , 12/04/17) Subjective had rectal bleed yesterday s/p one unit prbc Objective Last 24 Hour Vital Signs Date Time Temp Pulse Resp B/P (MAP) Pulse Ox O2 Delivery O2 Flow Rate FiO2 12/10/17 05:56 149/79 12/10/17 05:56 149/79 12/10/17 04:00 97.6 72 18 149/79 (102) 97 97.6 12/10/17 04:00 71 12/10/17 00:00 98.5 74 18 166/80 (108) 100 98.5 12/10/17 00:00 71 12/09/17 21:15 166/99 12/09/17 21:15 166/99 12/09/17 21:00 Room Air 12/09/17 20:00 65 12/09/17 20:00 98.0 80 20 166/99 (121) 99 98.0 12/09/17 18:42 97.2 95 21 179/96 (123) 99 97.2 12/09/17 17:46 175/93 12/09/17 16:00 97.7 99 21 175/93 (120) 100 97.7 12/09/17 16:00 97 12/09/17 12:43 185/106 12/09/17 12:42 185/106 12/09/17 12:12 97.2 71 22 185/106 (132) 100 97.2 12/09/17 12:00 74 12/09/17 09:00 Room Air Intake and Output 12/09/17 12/10/17 19:00 07:00 Output Total 1400 ml Balance -1400 ml Output Urine Total 1400 ml # Voids 2 Laboratory Tests 12/09/17 23:35: White Blood Count 8.4, Red Blood Count 2.99L, Hemoglobin 8.3L, Hematocrit 25.4L , Mean Corpuscular Volume 85, Mean Corpuscular Hemoglobin 27.9, Mean Corpuscular Hemoglobin Concent 32.8, Red Cell Distribution Width 15.2H, Platelet Count 270, Mean Platelet Volume 5.4L, Neutrophils (%) (Auto) 67.0, Lymphocytes (%) (Auto) 16.5L, Monocytes (%) (Auto) 9.9, Eosinophils (%) (Auto) 5.9H, Basophils (%) (Auto) 0.8 12/10/17 04:06: Sodium Level 143, Potassium Level 4.0, Chloride Level 112H, Carbon Dioxide Level 26, Anion Gap 5, Blood Urea Nitrogen 36H, Creatinine 3.4H, Estimat Glomerular Filtration Rate 18.8, Glucose Level 109H, Calcium Level 7.1L, Phosphorus Level 4.8, Magnesium Level 1.6L, Total Bilirubin 0.2, Aspartate Amino Transf (AST/SGOT) 18, Alanine Aminotransferase (ALT/SGPT) 29, Alkaline Phosphatase 95, Troponin I 0.033, C-Reactive Protein, Quantitative 2.7H, Pro-B- Type Natriuretic Peptide 7313H, Total Protein 4.7L, Albumin 1.1L, Globulin 3.6, Albumin/Globulin Ratio 0.3L Height (Feet): 5 Height (Inches): 6.00 Weight (Pounds): 190 General Appearance: alert EENT: normal ENT inspection Neck: supple Cardiovascular: normal rate Respiratory/Chest: decreased breath sounds Abdomen: normal bowel sounds, non tender, soft Extremities: non-tender Carlos Muro MD Dec 10, 2017 08:53
[2017-12-10] MEDS: Aspirin EC 81mg tab ORAL SCH (09:00)
--- NOTE | 2017-12-10 11:02 | Nephrology Progress Note ---
Assessment/Plan Problem List: (1) Anemia in chronic kidney disease (CKD) (2) Hypertensive urgency (3) Diabetic foot ulcer (4) Renal failure (ARF), acute on chronic (5) Rectal bleed Assessment: over night, post polipectopy 12/08 Assessment Renal failure- likely chronic due to diabetic nephropathy Anemia Proteinuria / Hypoalbuminemia HTN OOC Diabetic foot ULCER Left ventricular ejection fraction estimated to be 55-60 %. Plan Rectal bleed per GI BP management- meds rearranged BP OK DC Plavix stat CBC Wound care Avoid nephrotoxics Manage Anemia Monitor renal parameters per orders kidney NIGEL pending IV Iron Subjective ROS Limited/Unobtainable: No Constitutional: Reports: malaise Subjective rectal bleed Objective Objective Last 24 Hour Vital Signs Date Time Temp Pulse Resp B/P (MAP) Pulse Ox O2 Delivery O2 Flow Rate FiO2 12/10/17 09:23 72 137/72 12/10/17 05:56 149/79 12/10/17 05:56 149/79 12/10/17 04:00 97.6 72 18 149/79 (102) 97 97.6 12/10/17 04:00 71 12/10/17 00:00 98.5 74 18 166/80 (108) 100 98.5 12/10/17 00:00 71 12/09/17 21:15 166/99 12/09/17 21:15 166/99 12/09/17 21:00 Room Air 12/09/17 20:00 65 12/09/17 20:00 98.0 80 20 166/99 (121) 99 98.0 12/09/17 18:42 97.2 95 21 179/96 (123) 99 97.2 12/09/17 17:46 175/93 12/09/17 16:00 97.7 99 21 175/93 (120) 100 97.7 12/09/17 16:00 97 12/09/17 12:43 185/106 12/09/17 12:42 185/106 12/09/17 12:12 97.2 71 22 185/106 (132) 100 97.2 12/09/17 12:00 74 Intake and Output 12/09/17 12/10/17 19:00 07:00 Output Total 1400 ml Balance -1400 ml Output Urine Total 1400 ml # Voids 2 Laboratory Tests 12/09/17 23:35: White Blood Count 8.4, Red Blood Count 2.99L, Hemoglobin 8.3L, Hematocrit 25.4L , Mean Corpuscular Volume 85, Mean Corpuscular Hemoglobin 27.9, Mean Corpuscular Hemoglobin Concent 32.8, Red Cell Distribution Width 15.2H, Platelet Count 270, Mean Platelet Volume 5.4L, Neutrophils (%) (Auto) 67.0, Lymphocytes (%) (Auto) 16.5L, Monocytes (%) (Auto) 9.9, Eosinophils (%) (Auto) 5.9H, Basophils (%) (Auto) 0.8 12/10/17 04:06: Sodium Level 143, Potassium Level 4.0, Chloride Level 112H, Carbon Dioxide Level 26, Anion Gap 5, Blood Urea Nitrogen 36H, Creatinine 3.4H, Estimat Glomerular Filtration Rate 18.8, Glucose Level 109H, Calcium Level 7.1L, Phosphorus Level 4.8, Magnesium Level 1.6L, Total Bilirubin 0.2, Aspartate Amino Transf (AST/SGOT) 18, Alanine Aminotransferase (ALT/SGPT) 29, Alkaline Phosphatase 95, Troponin I 0.033, C-Reactive Protein, Quantitative 2.7H, Pro-B- Type Natriuretic Peptide 7313H, Total Protein 4.7L, Albumin 1.1L, Globulin 3.6, Albumin/Globulin Ratio 0.3L Height (Feet): 5 Height (Inches): 6.00 Weight (Pounds): 190 General Appearance: no apparent distress Cardiovascular: regular rhythm Respiratory/Chest: lungs clear Abdomen: soft Gino Connors MD Dec 10, 2017 11:02
--- NOTE | 2017-12-10 11:34 | General Surgery Progress Note ---
General Surgery-Progress Note Subjective Additional Comments Blood noted in BM last night. since no bleeding Objective Last 24 Hour Vital Signs Date Time Temp Pulse Resp B/P (MAP) Pulse Ox O2 Delivery O2 Flow Rate FiO2 12/10/17 09:23 72 137/72 12/10/17 08:00 73 12/10/17 05:56 149/79 12/10/17 05:56 149/79 12/10/17 04:00 97.6 72 18 149/79 (102) 97 97.6 12/10/17 04:00 71 12/10/17 00:00 98.5 74 18 166/80 (108) 100 98.5 12/10/17 00:00 71 12/09/17 21:15 166/99 12/09/17 21:15 166/99 12/09/17 21:00 Room Air 12/09/17 20:00 65 12/09/17 20:00 98.0 80 20 166/99 (121) 99 98.0 12/09/17 18:42 97.2 95 21 179/96 (123) 99 97.2 12/09/17 17:46 175/93 12/09/17 16:00 97.7 99 21 175/93 (120) 100 97.7 12/09/17 16:00 97 12/09/17 12:43 185/106 12/09/17 12:42 185/106 12/09/17 12:12 97.2 71 22 185/106 (132) 100 97.2 12/09/17 12:00 74 I&O Intake and Output 12/09/17 12/10/17 19:00 07:00 Output Total 1400 ml Balance -1400 ml Output Urine Total 1400 ml # Voids 2 Dressing: saturated Wound: clean Drains: none Cardiovascular: RSR Respiratory: clear Abdomen: soft, flat, non-tender, present bowel sounds Extremities: no tenderness Laboratory Tests Test 12/09/17 23:35 12/10/17 04:06 12/10/17 11:24 White Blood Count 8.4 K/UL (4.8-10.8) Pending Red Blood Count 2.99 M/UL (4.70-6.10) L Pending Hemoglobin 8.3 G/DL (14.2-18.0) L Pending Hematocrit 25.4 % (42.0-52.0) L Pending Mean Corpuscular Volume 85 FL (80-99) Pending Mean Corpuscular Hemoglobin 27.9 PG (27.0-31.0) Pending Mean Corpuscular Hemoglobin Concent 32.8 G/DL (32.0-36.0) Pending Red Cell Distribution Width 15.2 % (11.6-14.8) H Pending Platelet Count 270 K/UL (150-450) Pending Mean Platelet Volume 5.4 FL (6.5-10.1) L Pending Neutrophils (%) (Auto) 67.0 % (45.0-75.0) Pending Lymphocytes (%) (Auto) 16.5 % (20.0-45.0) L Pending Monocytes (%) (Auto) 9.9 % (1.0-10.0) Pending Eosinophils (%) (Auto) 5.9 % (0.0-3.0) H Pending Basophils (%) (Auto) 0.8 % (0.0-2.0) Pending Sodium Level 143 MMOL/L (136-145) Potassium Level 4.0 MMOL/L (3.5-5.1) Chloride Level 112 MMOL/L (98-107) H Carbon Dioxide Level 26 MMOL/L (21-32) Anion Gap 5 mmol/L (5-15) Blood Urea Nitrogen 36 mg/dL (7-18) H Creatinine 3.4 MG/DL (0.55-1.30) H Estimat Glomerular Filtration Rate 18.8 mL/min (>60) Glucose Level 109 MG/DL (74-106) H Calcium Level 7.1 MG/DL (8.5-10.1) L Phosphorus Level 4.8 MG/DL (2.5-4.9) Magnesium Level 1.6 MG/DL (1.8-2.4) L Total Bilirubin 0.2 MG/DL (0.2-1.0) Aspartate Amino Transf (AST/SGOT) 18 U/L (15-37) Alanine Aminotransferase (ALT/SGPT) 29 U/L (12-78) Alkaline Phosphatase 95 U/L (46-116) Troponin I 0.033 ng/mL (0.000-0.056) C-Reactive Protein, Quantitative 2.7 mg/dL (0.00-0.90) H Pro-B-Type Natriuretic Peptide 7313 pg/mL (0-125) H Total Protein 4.7 G/DL (6.4-8.2) L Albumin 1.1 G/DL (3.4-5.0) L Globulin 3.6 g/dL Albumin/Globulin Ratio 0.3 (1.0-2.7) L Plan Problems: (1) Anemia (2) Diabetes (3) Ulcer of right heel and midfoot with fat layer exposed Assessment & Plan: left foot amputation, right foot amputation, right foot with large heel ulcer non healing possibly down to bone -MRI right foot -- Extensive diffuse soft tissue edema, nonspecific in appearance but likely on the basis of cellulitis given stated clinical history Possible small 16 mm abscess in the medial ankle subcutaneous fat No osseous signal abnormality to suggest osteomyelitis on exam no abscess noted. no drainable collection seen. -wet to dry dressing to help with debridement of fibrinous debris. -keep off wound -heel protectors. -monitor BM's for bleeding. transfuse prn. appreciate GI input Angel Browning Dec 10, 2017 11:34
[2017-12-10 12:00] VITALS: BP 126/66
--- NOTE | 2017-12-10 12:19 | General Progress Note ---
Assessment/Plan Status: unchanged Assessment/Plan 1. Anemia due to Gi bleed from polypectomy site --> Continue to closely monitor for improvement. --> Anemia panel has been reviewed, will trend cbc --> Hgb goal >7 --> 12/10 s/p 1 unit --> no asa or palcix x 2 weeks 2. Anemia due to underlying kidney disease. --> Closely monitor for improvement. 3. Mild protein-caloric malnutrition. 4. Leukocytosis potentially secondary to reactive process. --> Cont abx --> WBC unchanged. 5. Diabetes mellitus. A1c goal less than 7. 6. Constipation. Endoscopy as per gastrointestinal service. Subjective Date patient seen: Dec 10, 2017 ROS Limited/Unobtainable: Yes Gastrointestinal/Abdominal: Reports: rectal bleeding Hematologic/Lymphatic: Reports: anemia Allergies: Coded Allergies: No Known Allergies (Unverified , 12/04/17) All Systems: reviewed and negative except above Subjective Pt had rectal bleed overnight, s/p 1 unit PRBC, tolerated well. Objective Last 24 Hour Vital Signs Date Time Temp Pulse Resp B/P (MAP) Pulse Ox O2 Delivery O2 Flow Rate FiO2 12/10/17 09:23 72 137/72 12/10/17 09:00 Room Air 12/10/17 08:00 97.7 72 22 137/72 (93) 99 97.7 12/10/17 08:00 73 12/10/17 05:56 149/79 12/10/17 05:56 149/79 12/10/17 04:00 97.6 72 18 149/79 (102) 97 97.6 12/10/17 04:00 71 12/10/17 00:00 98.5 74 18 166/80 (108) 100 98.5 12/10/17 00:00 71 12/09/17 21:15 166/99 12/09/17 21:15 166/99 12/09/17 21:00 Room Air 12/09/17 20:00 65 12/09/17 20:00 98.0 80 20 166/99 (121) 99 98.0 12/09/17 18:42 97.2 95 21 179/96 (123) 99 97.2 12/09/17 17:46 175/93 12/09/17 16:00 97.7 99 21 175/93 (120) 100 97.7 12/09/17 16:00 97 12/09/17 12:43 185/106 12/09/17 12:42 185/106 Intake and Output 12/09/17 12/10/17 19:00 07:00 Output Total 1400 ml Balance -1400 ml Output Urine Total 1400 ml # Voids 2 Laboratory Tests 12/09/17 23:35: White Blood Count 8.4, Red Blood Count 2.99L, Hemoglobin 8.3L, Hematocrit 25.4L , Mean Corpuscular Volume 85, Mean Corpuscular Hemoglobin 27.9, Mean Corpuscular Hemoglobin Concent 32.8, Red Cell Distribution Width 15.2H, Platelet Count 270, Mean Platelet Volume 5.4L, Neutrophils (%) (Auto) 67.0, Lymphocytes (%) (Auto) 16.5L, Monocytes (%) (Auto) 9.9, Eosinophils (%) (Auto) 5.9H, Basophils (%) (Auto) 0.8 12/10/17 04:06: Sodium Level 143, Potassium Level 4.0, Chloride Level 112H, Carbon Dioxide Level 26, Anion Gap 5, Blood Urea Nitrogen 36H, Creatinine 3.4H, Estimat Glomerular Filtration Rate 18.8, Glucose Level 109H, Calcium Level 7.1L, Phosphorus Level 4.8, Magnesium Level 1.6L, Total Bilirubin 0.2, Aspartate Amino Transf (AST/SGOT) 18, Alanine Aminotransferase (ALT/SGPT) 29, Alkaline Phosphatase 95, Troponin I 0.033, C-Reactive Protein, Quantitative 2.7H, Pro-B- Type Natriuretic Peptide 7313H, Total Protein 4.7L, Albumin 1.1L, Globulin 3.6, Albumin/Globulin Ratio 0.3L Height (Feet): 5 Height (Inches): 6.00 Weight (Pounds): 190 General Appearance: no apparent distress EENT: PERRL/EOMI Neck: normal alignment Cardiovascular: normal peripheral pulses Respiratory/Chest: no respiratory distress Abdomen: tender Ronnie Bray MD Dec 10, 2017 12:19
[2017-12-10 12:35] LABS: HEMATOCRIT 20.1 % (42.0-52.0); MEAN CORPUSCULAR VOLUME 86 FL (80-99); PLATELET COUNT 193 K/UL (150-450); RED BLOOD COUNT 2.33 M/UL (4.70-6.10); WHITE BLOOD COUNT 7.1 K/UL (4.8-10.8)
[2017-12-10 12:36] LABS: HEMOGLOBIN 6.3 G/DL (14.2-18.0)
--- NOTE | 2017-12-10 13:26 | General Progress Note ---
Assessment/Plan Problem List: (1) Anemia ICD Codes: D64.9 - Anemia, unspecified SNOMED: 046931495 (2) Diabetes ICD Codes: E11.9 - Type 2 diabetes mellitus without complications SNOMED: 27323175, 74811736 (3) Hypertension ICD Codes: I10 - Essential (primary) hypertension SNOMED: 28363903, 07203135 (4) Diabetic foot ulcer ICD Codes: E11.621 - Type 2 diabetes mellitus with foot ulcer; L97.509 - Non- pressure chronic ulcer of other part of unspecified foot with unspecified severity SNOMED: 680187750, 71573538 Status: progressing Assessment/Plan s/p polypectomy cancel dc due to elevated bp and lower gi bleed and severe anemia dr raven perez is consulted for low hb need to moniter for further gi bleed not safe for dc foot osteomylitis Subjective Allergies: Coded Allergies: No Known Allergies (Unverified , 12/04/17) Subjective foot pain Objective Last 24 Hour Vital Signs Date Time Temp Pulse Resp B/P (MAP) Pulse Ox O2 Delivery O2 Flow Rate FiO2 12/10/17 09:23 72 137/72 12/10/17 09:00 Room Air 12/10/17 08:00 97.7 72 22 137/72 (93) 99 97.7 12/10/17 08:00 73 12/10/17 05:56 149/79 12/10/17 05:56 149/79 12/10/17 04:00 97.6 72 18 149/79 (102) 97 97.6 12/10/17 04:00 71 12/10/17 00:00 98.5 74 18 166/80 (108) 100 98.5 12/10/17 00:00 71 12/09/17 21:15 166/99 12/09/17 21:15 166/99 12/09/17 21:00 Room Air 12/09/17 20:00 65 12/09/17 20:00 98.0 80 20 166/99 (121) 99 98.0 12/09/17 18:42 97.2 95 21 179/96 (123) 99 97.2 12/09/17 17:46 175/93 12/09/17 16:00 97.7 99 21 175/93 (120) 100 97.7 12/09/17 16:00 97 Intake and Output 12/09/17 12/10/17 19:00 07:00 Output Total 1400 ml Balance -1400 ml Output Urine Total 1400 ml # Voids 2 Laboratory Tests 12/09/17 23:35: White Blood Count 8.4, Red Blood Count 2.99L, Hemoglobin 8.3L, Hematocrit 25.4L , Mean Corpuscular Volume 85, Mean Corpuscular Hemoglobin 27.9, Mean Corpuscular Hemoglobin Concent 32.8, Red Cell Distribution Width 15.2H, Platelet Count 270, Mean Platelet Volume 5.4L, Neutrophils (%) (Auto) 67.0, Lymphocytes (%) (Auto) 16.5L, Monocytes (%) (Auto) 9.9, Eosinophils (%) (Auto) 5.9H, Basophils (%) (Auto) 0.8 12/10/17 04:06: Sodium Level 143, Potassium Level 4.0, Chloride Level 112H, Carbon Dioxide Level 26, Anion Gap 5, Blood Urea Nitrogen 36H, Creatinine 3.4H, Estimat Glomerular Filtration Rate 18.8, Glucose Level 109H, Calcium Level 7.1L, Phosphorus Level 4.8, Magnesium Level 1.6L, Total Bilirubin 0.2, Aspartate Amino Transf (AST/SGOT) 18, Alanine Aminotransferase (ALT/SGPT) 29, Alkaline Phosphatase 95, Troponin I 0.033, C-Reactive Protein, Quantitative 2.7H, Pro-B- Type Natriuretic Peptide 7313H, Total Protein 4.7L, Albumin 1.1L, Globulin 3.6, Albumin/Globulin Ratio 0.3L 12/10/17 12:10: White Blood Count 7.1, Red Blood Count 2.33L, Hemoglobin 6.3*L, Hematocrit 20.1L , Mean Corpuscular Volume 86, Mean Corpuscular Hemoglobin 27.1, Mean Corpuscular Hemoglobin Concent 31.4L, Red Cell Distribution Width 15.0H, Platelet Count 193, Mean Platelet Volume 6.1L, Neutrophils (%) (Auto) , Lymphocytes (%) (Auto) , Monocytes (%) (Auto) , Eosinophils (%) (Auto) , Basophils (%) (Auto) , Differential Total Cells Counted 100, Neutrophils % ( Manual) 65, Lymphocytes % (Manual) 24, Monocytes % (Manual) 8, Eosinophils % ( Manual) 3, Basophils % (Manual) 0, Band Neutrophils 0, Platelet Estimate Adequate, Platelet Morphology Normal, Hypochromasia 1+, Anisocytosis 1+ Height (Feet): 5 Height (Inches): 6.00 Weight (Pounds): 190 Cardiovascular: normal rate Respiratory/Chest: lungs clear Abdomen: soft Romaine Molina MD Dec 10, 2017 13:25
[2017-12-10 16:00] VITALS: BP 144/77
[2017-12-10] MEDS ORDERED: Nulytely 4L ORAL ONE (18:30)
[2017-12-10 20:00] VITALS: BP_SYST 120; BP_SYST 141; BP_DIAS 72; BP_DIAS 84
[2017-12-10] MEDS: Polyethylene Glycol 238gm bottle ORAL SCH ×2 (20:00→22:21)
[2017-12-10] MEDS: Dyna-Hex 2% Top Sol 2oz TOPIC SCH (20:07)
[2017-12-10] MEDS: Atorvastatin 20mg tab ORAL SCH (21:10)
[2017-12-10] MEDS: Tamsulosin 0.4mg cap ORAL SCH (21:10)
[2017-12-10] MEDS: Iron Sucrose 100 MG in NS 55 ML IV SCH (21:10)
[2017-12-11] VITALS (10 sets, daily range): BP systolic 105–140; BP diastolic 67–78
[2017-12-11 05:08] LABS: HEMATOCRIT 20.2 % (42.0-52.0); MEAN CORPUSCULAR VOLUME 87 FL (80-99); PLATELET COUNT 158 K/UL (150-450); RED BLOOD COUNT 2.32 M/UL (4.70-6.10); RED CELL DISTRIBUTION WIDTH 14.2 % (11.6-14.8); WHITE BLOOD COUNT 9.5 K/UL (4.8-10.8)
[2017-12-11 05:24] LABS: ALANINE AMINOTRANSFERASE 27 U/L (12-78); ALBUMIN 1.2 G/DL (3.4-5.0); ALBUMIN/GLOBULIN RATIO 0.4 (1.0-2.7); ALKALINE PHOSPHATASE 76 U/L (46-116); ANION GAP 8 mmol/L (5-15); ASPARTATE AMINO TRANSFERASE 18 U/L (15-37); BILIRUBIN,TOTAL 0.1 MG/DL (0.2-1.0); BLOOD UREA NITROGEN 34 mg/dL (7-18); CALCIUM 6.9 MG/DL (8.5-10.1); CARBON DIOXIDE 24 MMOL/L (21-32); CHLORIDE 111 MMOL/L (98-107); CREATININE 3.3 MG/DL (0.55-1.30); PHOSPHORUS 4.7 MG/DL (2.5-4.9); POTASSIUM 4.1 MMOL/L (3.5-5.1); SODIUM 143 MMOL/L (136-145)
[2017-12-11 05:35] LABS: HEMOGLOBIN 6.6 G/DL (14.2-18.0)
[2017-12-11] MEDS: NovoLOG Insulin Flexpen SUBQ SCH ×4 (06:14→21:00)
[2017-12-11] MEDS: HydrALAZINE 50mg tab ORAL SCH ×3 (06:14→22:00)
--- NOTE | 2017-12-11 07:01 | Anethesia Preoperative Eval ---
Anesthesia Pre-op PMH/ROS General Date of Evaluation: Dec 11, 2017 Time of Evaluation: 06:57 Anesthesiologist: trixie ASA Score: ASA 3 Mallampati Score Class I : Soft palate, uvula, fauces, pillars visible Class II: Soft palate, uvula, fauces visible Class III: Soft palate, base of uvula visible Class IV: Only hard plate visible Mallampati Classification: Class II Surgeon: fanta Diagnosis: anemia, gib Surgical Procedure: colonoscopy Anesthesia History: none Social History: smoking - nonsmoker Family History: no anesthesia problems Allergies: Coded Allergies: No Known Allergies (Unverified , 12/04/17) Medications: see eMAR Past Medical History Cardiovascular: Reports: HTN, arrhythmia Gastrointestinal/Genitourinary: Reports: CRI Neurologic/Psychiatric: Reports: CVA Endocrine: Reports: DM Hematology/Immune: Reports: anemia Anesthesia Pre-op Phys. Exam Physician Exam Last Vital Signs Date Time Temp Pulse Resp B/P (MAP) Pulse Ox O2 Delivery O2 Flow Rate FiO2 12/11/17 06:14 126/67 12/11/17 04:00 97.6 69 20 97 97.6 12/10/17 21:00 Room Air 12/08/17 14:09 2 Constitutional: NAD Neurologic: CN 2-12 intact Cardiovascular: RRR Respiratory: CTA Gastrointestinal: S/NT/ND Airway Exam Mallampati Score: Class II MO: limited Neck: supple TMD: 2fb ROM: limited Teeth: missing, broken Anesthesia Pre-op A/P Labs Hematology Test 12/10/17 12:10 12/11/17 04:00 White Blood Count 7.1 K/UL (4.8-10.8) 9.5 K/UL (4.8-10.8) Red Blood Count 2.33 M/UL (4.70-6.10) L 2.32 M/UL (4.70-6.10) L Hemoglobin 6.3 G/DL (14.2-18.0) *L 6.6 G/DL (14.2-18.0) *L Hematocrit 20.1 % (42.0-52.0) L 20.2 % (42.0-52.0) L Mean Corpuscular Volume 86 FL (80-99) 87 FL (80-99) Mean Corpuscular Hemoglobin 27.1 PG (27.0-31.0) 28.5 PG (27.0-31.0) Mean Corpuscular Hemoglobin Concent 31.4 G/DL (32.0-36.0) L 32.6 G/DL (32.0-36.0) Red Cell Distribution Width 15.0 % (11.6-14.8) H 14.2 % (11.6-14.8) Platelet Count 193 K/UL (150-450) 158 K/UL (150-450) Mean Platelet Volume 6.1 FL (6.5-10.1) L 6.0 FL (6.5-10.1) L Neutrophils (%) (Auto) % (45.0-75.0) % (45.0-75.0) Lymphocytes (%) (Auto) % (20.0-45.0) % (20.0-45.0) Monocytes (%) (Auto) % (1.0-10.0) % (1.0-10.0) Eosinophils (%) (Auto) % (0.0-3.0) % (0.0-3.0) Basophils (%) (Auto) % (0.0-2.0) % (0.0-2.0) Differential Total Cells Counted 100 Neutrophils % (Manual) 65 % (45-75) Pending Lymphocytes % (Manual) 24 % (20-45) Pending Monocytes % (Manual) 8 % (1-10) Eosinophils % (Manual) 3 % (0-3) Basophils % (Manual) 0 % (0-2) Band Neutrophils 0 % (0-8) Platelet Estimate Adequate Pending Platelet Morphology Normal Pending Hypochromasia 1+ Anisocytosis 1+ Chemistry Test 12/11/17 04:00 Sodium Level 143 MMOL/L (136-145) Potassium Level 4.1 MMOL/L (3.5-5.1) Chloride Level 111 MMOL/L (98-107) H Carbon Dioxide Level 24 MMOL/L (21-32) Anion Gap 8 mmol/L (5-15) Blood Urea Nitrogen 34 mg/dL (7-18) H Creatinine 3.3 MG/DL (0.55-1.30) H Estimat Glomerular Filtration Rate 19.4 mL/min (>60) Glucose Level 156 MG/DL (74-106) H Calcium Level 6.9 MG/DL (8.5-10.1) L Phosphorus Level 4.7 MG/DL (2.5-4.9) Magnesium Level 1.6 MG/DL (1.8-2.4) L Total Bilirubin 0.1 MG/DL (0.2-1.0) L Aspartate Amino Transf (AST/SGOT) 18 U/L (15-37) Alanine Aminotransferase (ALT/SGPT) 27 U/L (12-78) Alkaline Phosphatase 76 U/L (46-116) Total Protein 4.5 G/DL (6.4-8.2) L Albumin 1.2 G/DL (3.4-5.0) L Globulin 3.3 g/dL Albumin/Globulin Ratio 0.4 (1.0-2.7) L Risk Assessment & Plan Assessment: asa3 Plan: mac Status Change Before Surgery: No Pre-Antibiotics Drug: Zulma Pool MD Dec 11, 2017 07:01
[2017-12-11] MEDS ORDERED: Midazolam 2mg/2ml Inj IVP PRN (07:15)
[2017-12-11] MEDS ORDERED: DiphenhydrAMINE 50mg/ml Inj IVP PRN (07:15)
[2017-12-11] MEDS ORDERED: fentaNYL 100 mcg/2 mL IV PRN (07:15)
[2017-12-11] MEDS ORDERED: Atropine Inj 1mg/10ml Syr IV PRN (07:15)
[2017-12-11] MEDS ORDERED: Atropine Sulfate 0.4mg/ml inj ONE ×2 (08:00)
[2017-12-11] MEDS ORDERED: Propofol 200mg/20ml IV ONE ×2 (08:00)
[2017-12-11] MEDS ORDERED: Lidocaine 1% MPF 10mg/ml 5ml ONE ×2 (08:00)
[2017-12-11] MEDS ORDERED: NS 500ML IVPB ONE ×2 (08:10→08:55)
--- NOTE | 2017-12-11 08:11 | Pre-Procedure Note/Attestation ---
Pre-Procedure Note/Attestation Complete Prior to Procedure Planned Procedure: not applicable Procedure Narrative: colonoscopy Indications for Procedure Pre-Operative Diagnosis: anemia Attestation I attest that I discussed the nature of the procedure; its benefits; risks and complications; and alternatives (and the risks and benefits of such alternatives ), prior to the procedure, with the patient (or the patient's legal account executive sales representative). I attest that, if there was a reasonable possibility of needing a blood transfusion, the patient (or the patient's legal account executive sales representative) was given the [facility] standardized written summary, pursuant to the Noel Shiela Blood Safety Act ([place] Health and Safety Code # 1645, as amended). I attest that I re-evaluated the patient just prior to the surgery and that there has been no change in the patient's H&P, except as documented below: Carlos Muro MD Dec 11, 2017 08:11
--- NOTE | 2017-12-11 08:50 | Nephrology Progress Note ---
Assessment/Plan Problem List: (1) Renal failure (ARF), acute on chronic (2) Anemia in chronic kidney disease (CKD) (3) Acute post-hemorrhagic anemia (4) Hypertensive urgency (5) Diabetic foot ulcer (6) Rectal bleed Assessment: over night, post polipectopy 12/08 Assessment Renal failure- likely chronic due to diabetic nephropathy Anemia Proteinuria / Hypoalbuminemia HTN OOC Diabetic foot ULCER Left ventricular ejection fraction estimated to be 55-60 %. Plan Hgbs low- need more transfusion- Rectal bleed , management per GI BP management- meds rearranged BP OK DC Plavix Wound care Avoid nephrotoxics Manage Anemia Monitor renal parameters per orders kidney NIGEL pending IV Iron Subjective ROS Limited/Unobtainable: No Constitutional: Reports: malaise Subjective rectal bleed Objective Objective Last 24 Hour Vital Signs Date Time Temp Pulse Resp B/P (MAP) Pulse Ox O2 Delivery O2 Flow Rate FiO2 12/11/17 06:14 126/67 12/11/17 06:13 126/67 12/11/17 04:00 97.6 69 20 126/67 (86) 97 97.6 12/11/17 04:00 68 12/11/17 00:00 96.4 72 18 136/74 (94) 97 96.4 12/11/17 00:00 74 12/10/17 21:11 141/84 12/10/17 21:11 141/84 12/10/17 21:00 Room Air 12/10/17 20:00 73 12/10/17 20:00 98.2 72 19 141/84 (103) 97 98.2 12/10/17 16:00 97.9 74 18 144/77 (99) 99 97.9 12/10/17 16:00 68 12/10/17 15:22 137/77 12/10/17 15:22 137/77 12/10/17 12:00 80 12/10/17 12:00 98.1 70 22 126/66 (86) 97 98.1 12/10/17 09:23 72 137/72 12/10/17 09:00 Room Air Intake and Output 12/10/17 12/11/17 19:00 07:00 Intake Total 300 ml Output Total 400 ml 1100 ml Balance -100 ml -1100 ml Intake Oral 300 ml Output Urine Total 400 ml 1100 ml # Bowel Movements 1 Laboratory Tests 12/10/17 12:10: White Blood Count 7.1, Red Blood Count 2.33L, Hemoglobin 6.3*L, Hematocrit 20.1L , Mean Corpuscular Volume 86, Mean Corpuscular Hemoglobin 27.1, Mean Corpuscular Hemoglobin Concent 31.4L, Red Cell Distribution Width 15.0H, Platelet Count 193, Mean Platelet Volume 6.1L, Neutrophils (%) (Auto) , Lymphocytes (%) (Auto) , Monocytes (%) (Auto) , Eosinophils (%) (Auto) , Basophils (%) (Auto) , Differential Total Cells Counted 100, Neutrophils % ( Manual) 65, Lymphocytes % (Manual) 24, Monocytes % (Manual) 8, Eosinophils % ( Manual) 3, Basophils % (Manual) 0, Band Neutrophils 0, Platelet Estimate Adequate, Platelet Morphology Normal, Hypochromasia 1+, Anisocytosis 1+ 12/11/17 04:00: White Blood Count 9.5, Red Blood Count 2.32L, Hemoglobin 6.6*L, Hematocrit 20.2L , Mean Corpuscular Volume 87, Mean Corpuscular Hemoglobin 28.5, Mean Corpuscular Hemoglobin Concent 32.6, Red Cell Distribution Width 14.2, Platelet Count 158, Mean Platelet Volume 6.0L, Neutrophils (%) (Auto) , Lymphocytes (%) ( Auto) , Monocytes (%) (Auto) , Eosinophils (%) (Auto) , Basophils (%) (Auto) , Neutrophils % (Manual) [Pending], Lymphocytes % (Manual) [Pending], Platelet Estimate [Pending], Platelet Morphology [Pending], Sodium Level 143, Potassium Level 4.1, Chloride Level 111H, Carbon Dioxide Level 24, Anion Gap 8, Blood Urea Nitrogen 34H, Creatinine 3.3H, Estimat Glomerular Filtration Rate 19.4, Glucose Level 156H, Calcium Level 6.9L, Phosphorus Level 4.7, Magnesium Level 1.6L, Total Bilirubin 0.1L, Aspartate Amino Transf (AST/SGOT) 18, Alanine Aminotransferase (ALT/SGPT) 27, Alkaline Phosphatase 76, Total Protein 4.5L, Albumin 1.2L, Globulin 3.3, Albumin/Globulin Ratio 0.4L Height (Feet): 5 Height (Inches): 6.00 Weight (Pounds): 190 General Appearance: no apparent distress Cardiovascular: regular rhythm Abdomen: soft Objective no change Gino Connors MD Dec 11, 2017 08:50
--- NOTE | 2017-12-11 09:05 | Endoscopy Procedure Note ---
Endoscopy Procedure Note General Indication for Procedure: gib Procedures Performed: colonoscopy Operative Findings/Diagnosis: large polyp, blleding from polyp stump Specimen: yes Pt Tolerated Procedure Well: Yes Estimated Blood Loss: none Anesthesia Anesthesiologist: lorie Anesthesia: MAC Inserted Devices Implant(s) used?: No Quality Quality of Bowel Preparation: Good Did scope reach the cecum?: Yes Was there any complications?: No GI Core Measures 50 yrs or older w/o bx or poly: Not Applicable 10yrs. F/U not recommended: Not Applicable Carlos Muro MD Dec 11, 2017 09:05
--- NOTE | 2017-12-11 10:22 | Immediate Post-Op Evaluation ---
Immediate Post-Op Evalulation Immediate Post-Op Evalulation Procedure: EGD/Colonoscopy Date of Evaluation: Dec 11, 2017 Time of Evaluation: 09:17 IV Fluids: 500ml 0.9ns Blood Products: none Estimated Blood Loss: 250ml Blood Pressure Systolic: 92 Blood Pressure Diastolic: 62 Pulse Rate: 55 Respiratory Rate: 18 O2 Sat by Pulse Oximetry: 100 Temperature (Fahrenheit): 98.0 Pain Score (1-10): 0 Nausea: No Vomiting: No Complications none Patient Status: awake, reacts, patent Hydration Status: adequate Drug: Zulma Pool MD Dec 11, 2017 10:22
--- NOTE | 2017-12-11 10:24 | 48 Hour Post Anesthesia Eval ---
Post Anesthesia Evaluation Procedure: EGD/Colonoscopy Date of Evaluation: Dec 11, 2017 Time of Evaluation: 09:19 Blood Pressure Systolic: 108 0: 68 Pulse Rate: 55 Respiratory Rate: 18 Temperature (Fahrenheit): 98.0 O2 Sat by Pulse Oximetry: 100 Airway: patent Nausea: No Vomiting: No Pain Intensity: 0 Hydration Status: adequate Cardiopulmonary Status: stable Mental Status/LOC: patient returned to baseline Post-Anesthesia Complications: none Follow-up care needed: N/A Zulma Pereyra MD Dec 11, 2017 10:24
[2017-12-11] MEDS ORDERED: Tubing IV Secondary IV ONE (11:05)
[2017-12-11] MEDS ORDERED: NS 500ML ONE (11:05)
--- NOTE | 2017-12-11 13:48 | General Surgery Progress Note ---
General Surgery-Progress Note Subjective Additional Comments doing well. no acute events. Objective Last 24 Hour Vital Signs Date Time Temp Pulse Resp B/P (MAP) Pulse Ox O2 Delivery O2 Flow Rate FiO2 12/11/17 13:32 121/67 12/11/17 12:00 97.0 68 20 121/67 (85) 97 97.0 12/11/17 11:57 97.8 60 20 114/68 (83) 96 97.8 12/11/17 10:24 208.4 55 18 100 12/11/17 10:22 208.4 55 18 100 12/11/17 09:45 97.9 63 16 115/75 100 Nasal Cannula 3 97.9 12/11/17 09:30 97.8 61 15 111/77 100 Nasal Cannula 3 97.8 12/11/17 09:20 59 17 105/74 98 Nasal Cannula 3 12/11/17 09:15 98.0 58 15 105/78 100 Nasal Cannula 3 98.0 12/11/17 09:10 98.2 61 18 110/69 100 Nasal Cannula 3 98.2 12/11/17 09:00 Room Air 12/11/17 06:14 126/67 12/11/17 06:13 126/67 12/11/17 04:00 97.6 69 20 126/67 (86) 97 97.6 12/11/17 04:00 68 12/11/17 00:00 96.4 72 18 136/74 (94) 97 96.4 12/11/17 00:00 74 12/10/17 21:11 141/84 12/10/17 21:11 141/84 12/10/17 21:00 Room Air 12/10/17 20:00 73 12/10/17 20:00 98.2 72 19 141/84 (103) 97 98.2 12/10/17 16:00 97.9 74 18 144/77 (99) 99 97.9 12/10/17 16:00 68 12/10/17 15:22 137/77 12/10/17 15:22 137/77 I&O Intake and Output 12/10/17 12/11/17 19:00 07:00 Intake Total 300 ml Output Total 400 ml 1100 ml Balance -100 ml -1100 ml Intake Oral 300 ml Output Urine Total 400 ml 1100 ml # Bowel Movements 1 Dressing: saturated Wound: clean Drains: none Cardiovascular: RSR Respiratory: clear Abdomen: soft, flat Extremities: no tenderness Laboratory Tests Test 12/11/17 04:00 White Blood Count 9.5 K/UL (4.8-10.8) Red Blood Count 2.32 M/UL (4.70-6.10) L Hemoglobin 6.6 G/DL (14.2-18.0) *L Hematocrit 20.2 % (42.0-52.0) L Mean Corpuscular Volume 87 FL (80-99) Mean Corpuscular Hemoglobin 28.5 PG (27.0-31.0) Mean Corpuscular Hemoglobin Concent 32.6 G/DL (32.0-36.0) Red Cell Distribution Width 14.2 % (11.6-14.8) Platelet Count 158 K/UL (150-450) Mean Platelet Volume 6.0 FL (6.5-10.1) L Neutrophils (%) (Auto) % (45.0-75.0) Lymphocytes (%) (Auto) % (20.0-45.0) Monocytes (%) (Auto) % (1.0-10.0) Eosinophils (%) (Auto) % (0.0-3.0) Basophils (%) (Auto) % (0.0-2.0) Differential Total Cells Counted 100 Neutrophils % (Manual) 80 % (45-75) H Lymphocytes % (Manual) 17 % (20-45) L Monocytes % (Manual) 3 % (1-10) Eosinophils % (Manual) 0 % (0-3) Basophils % (Manual) 0 % (0-2) Band Neutrophils 0 % (0-8) Platelet Estimate Adequate Platelet Morphology Normal Hypochromasia 1+ Anisocytosis 1+ Sodium Level 143 MMOL/L (136-145) Potassium Level 4.1 MMOL/L (3.5-5.1) Chloride Level 111 MMOL/L (98-107) H Carbon Dioxide Level 24 MMOL/L (21-32) Anion Gap 8 mmol/L (5-15) Blood Urea Nitrogen 34 mg/dL (7-18) H Creatinine 3.3 MG/DL (0.55-1.30) H Estimat Glomerular Filtration Rate 19.4 mL/min (>60) Glucose Level 156 MG/DL (74-106) H Calcium Level 6.9 MG/DL (8.5-10.1) L Phosphorus Level 4.7 MG/DL (2.5-4.9) Magnesium Level 1.6 MG/DL (1.8-2.4) L Total Bilirubin 0.1 MG/DL (0.2-1.0) L Aspartate Amino Transf (AST/SGOT) 18 U/L (15-37) Alanine Aminotransferase (ALT/SGPT) 27 U/L (12-78) Alkaline Phosphatase 76 U/L (46-116) Total Protein 4.5 G/DL (6.4-8.2) L Albumin 1.2 G/DL (3.4-5.0) L Globulin 3.3 g/dL Albumin/Globulin Ratio 0.4 (1.0-2.7) L Plan Problems: (1) Anemia (2) Diabetes (3) Ulcer of right heel and midfoot with fat layer exposed Assessment & Plan: left foot amputation, right foot amputation, right foot with large heel ulcer non healing possibly down to bone -MRI right foot -- Extensive diffuse soft tissue edema, nonspecific in appearance but likely on the basis of cellulitis given stated clinical history Possible small 16 mm abscess in the medial ankle subcutaneous fat No osseous signal abnormality to suggest osteomyelitis on exam no abscess noted. no drainable collection seen. -wet to dry dressing to help with debridement of fibrinous debris. -keep off wound -heel protectors. Angel Browning Dec 11, 2017 13:48
--- NOTE | 2017-12-11 14:16 | Diagnostic Imaging Report ---
Indication: Renal failure Technique: US Renal Comp Comparison: None Findings: The kidney measures 12 cm in length. Left kidney measures 10.4 cm in length. Both kidneys demonstrate increased echogenicity. A subcentimeter anechoic well-circumscribed likely cyst is noted in the lower pole the left kidney. No evidence of hydronephrosis bilaterally. There is circumferential thickening of the bladder wall with the bladder wall measuring up to 8 mm. The bladder is decompressed. Imaged portions of the liver grossly unremarkable. IMPRESSION: * Increased renal echogenicity bilaterally. Correlate for medical renal disease. * No evidence of hydronephrosis bilaterally. * Circumferential thickening of the bladder wall. This may be related to underdistention. Correlation with urinalysis recommended to exclude the possibility of cystitis.
--- NOTE | 2017-12-11 14:38 | General Progress Note ---
Assessment/Plan Status: not improved, unchanged Assessment/Plan 1. Anemia due to Gi bleed from polypectomy site --> Continue to closely monitor for improvement. --> Anemia panel has been reviewed, will trend cbc --> Hgb goal >7 --> 12/10 s/p 1 unit, 12/11 s/p 1 unit. --> no asa or palcix x 2 weeks 2. Anemia due to underlying kidney disease. --> Closely monitor for improvement. 3. Mild protein-caloric malnutrition. 4. Leukocytosis potentially secondary to reactive process. --> Cont abx --> WBC unchanged. 5. Diabetes mellitus. A1c goal less than 7. 6. Constipation. Endoscopy as per gastrointestinal service. Subjective Date patient seen: Dec 11, 2017 ROS Limited/Unobtainable: Yes Hematologic/Lymphatic: Reports: anemia Allergies: Coded Allergies: No Known Allergies (Unverified , 12/04/17) All Systems: reviewed and negative except above Subjective Pt s/p EGD and colonoscopy. Hgb at 6.6, transfusion ordered. US renal reviewed. Objective Last 24 Hour Vital Signs Date Time Temp Pulse Resp B/P (MAP) Pulse Ox O2 Delivery O2 Flow Rate FiO2 12/11/17 13:32 121/67 12/11/17 12:00 97.0 68 20 121/67 (85) 97 97.0 12/11/17 11:57 97.8 60 20 114/68 (83) 96 97.8 12/11/17 10:24 208.4 55 18 100 12/11/17 10:22 208.4 55 18 100 12/11/17 09:45 97.9 63 16 115/75 100 Nasal Cannula 3 97.9 12/11/17 09:30 97.8 61 15 111/77 100 Nasal Cannula 3 97.8 12/11/17 09:20 59 17 105/74 98 Nasal Cannula 3 12/11/17 09:15 98.0 58 15 105/78 100 Nasal Cannula 3 98.0 12/11/17 09:10 98.2 61 18 110/69 100 Nasal Cannula 3 98.2 12/11/17 09:00 Room Air 12/11/17 06:14 126/67 12/11/17 06:13 126/67 12/11/17 04:00 97.6 69 20 126/67 (86) 97 97.6 12/11/17 04:00 68 12/11/17 00:00 96.4 72 18 136/74 (94) 97 96.4 12/11/17 00:00 74 12/10/17 21:11 141/84 12/10/17 21:11 141/84 12/10/17 21:00 Room Air 12/10/17 20:00 73 12/10/17 20:00 98.2 72 19 141/84 (103) 97 98.2 12/10/17 16:00 97.9 74 18 144/77 (99) 99 97.9 12/10/17 16:00 68 12/10/17 15:22 137/77 12/10/17 15:22 137/77 Intake and Output 12/10/17 12/11/17 19:00 07:00 Intake Total 300 ml Output Total 400 ml 1100 ml Balance -100 ml -1100 ml Intake Oral 300 ml Output Urine Total 400 ml 1100 ml # Bowel Movements 1 Laboratory Tests 12/11/17 04:00: White Blood Count 9.5, Red Blood Count 2.32L, Hemoglobin 6.6*L, Hematocrit 20.2L , Mean Corpuscular Volume 87, Mean Corpuscular Hemoglobin 28.5, Mean Corpuscular Hemoglobin Concent 32.6, Red Cell Distribution Width 14.2, Platelet Count 158, Mean Platelet Volume 6.0L, Neutrophils (%) (Auto) , Lymphocytes (%) ( Auto) , Monocytes (%) (Auto) , Eosinophils (%) (Auto) , Basophils (%) (Auto) , Differential Total Cells Counted 100, Neutrophils % (Manual) 80H, Lymphocytes % (Manual) 17L, Monocytes % (Manual) 3, Eosinophils % (Manual) 0, Basophils % ( Manual) 0, Band Neutrophils 0, Platelet Estimate Adequate, Platelet Morphology Normal, Hypochromasia 1+, Anisocytosis 1+, Sodium Level 143, Potassium Level 4.1 , Chloride Level 111H, Carbon Dioxide Level 24, Anion Gap 8, Blood Urea Nitrogen 34H, Creatinine 3.3H, Estimat Glomerular Filtration Rate 19.4, Glucose Level 156H, Calcium Level 6.9L, Phosphorus Level 4.7, Magnesium Level 1.6L, Total Bilirubin 0.1L, Aspartate Amino Transf (AST/SGOT) 18, Alanine Aminotransferase (ALT/SGPT) 27, Alkaline Phosphatase 76, Total Protein 4.5L, Albumin 1.2L, Globulin 3.3, Albumin/Globulin Ratio 0.4L Height (Feet): 5 Height (Inches): 6.00 Weight (Pounds): 190 General Appearance: no apparent distress EENT: PERRL/EOMI Neck: normal alignment Cardiovascular: normal peripheral pulses Respiratory/Chest: no respiratory distress Abdomen: soft Ronnie Bray MD Dec 11, 2017 14:38
--- NOTE | 2017-12-11 15:47 | General Progress Note ---
Assessment/Plan Status: stable, progressing Assessment/Plan Adjustment d/o anxiety d/o ativan prn ro/st Subjective Date patient seen: Dec 11, 2017 Neurologic/Psychiatric: Reports: anxiety, depressed, emotional problems Allergies: Coded Allergies: No Known Allergies (Unverified , 12/04/17) Objective Last 24 Hour Vital Signs Date Time Temp Pulse Resp B/P (MAP) Pulse Ox O2 Delivery O2 Flow Rate FiO2 12/11/17 13:32 121/67 12/11/17 12:00 63 12/11/17 12:00 97.0 68 20 121/67 (85) 97 97.0 12/11/17 11:57 97.8 60 20 114/68 (83) 96 97.8 12/11/17 10:24 208.4 55 18 100 12/11/17 10:22 208.4 55 18 100 12/11/17 09:45 97.9 63 16 115/75 100 Nasal Cannula 3 97.9 12/11/17 09:30 97.8 61 15 111/77 100 Nasal Cannula 3 97.8 12/11/17 09:20 59 17 105/74 98 Nasal Cannula 3 12/11/17 09:15 98.0 58 15 105/78 100 Nasal Cannula 3 98.0 12/11/17 09:10 98.2 61 18 110/69 100 Nasal Cannula 3 98.2 12/11/17 09:00 Room Air 12/11/17 06:14 126/67 12/11/17 06:13 126/67 12/11/17 04:00 97.6 69 20 126/67 (86) 97 97.6 12/11/17 04:00 68 12/11/17 00:00 96.4 72 18 136/74 (94) 97 96.4 12/11/17 00:00 74 12/10/17 21:11 141/84 12/10/17 21:11 141/84 12/10/17 21:00 Room Air 12/10/17 20:00 73 12/10/17 20:00 98.2 72 19 141/84 (103) 97 98.2 12/10/17 16:00 97.9 74 18 144/77 (99) 99 97.9 12/10/17 16:00 68 Intake and Output 12/10/17 12/11/17 19:00 07:00 Intake Total 300 ml Output Total 400 ml 1100 ml Balance -100 ml -1100 ml Intake Oral 300 ml Output Urine Total 400 ml 1100 ml # Bowel Movements 1 Laboratory Tests 12/11/17 04:00: White Blood Count 9.5, Red Blood Count 2.32L, Hemoglobin 6.6*L, Hematocrit 20.2L , Mean Corpuscular Volume 87, Mean Corpuscular Hemoglobin 28.5, Mean Corpuscular Hemoglobin Concent 32.6, Red Cell Distribution Width 14.2, Platelet Count 158, Mean Platelet Volume 6.0L, Neutrophils (%) (Auto) , Lymphocytes (%) ( Auto) , Monocytes (%) (Auto) , Eosinophils (%) (Auto) , Basophils (%) (Auto) , Differential Total Cells Counted 100, Neutrophils % (Manual) 80H, Lymphocytes % (Manual) 17L, Monocytes % (Manual) 3, Eosinophils % (Manual) 0, Basophils % ( Manual) 0, Band Neutrophils 0, Platelet Estimate Adequate, Platelet Morphology Normal, Hypochromasia 1+, Anisocytosis 1+, Sodium Level 143, Potassium Level 4.1 , Chloride Level 111H, Carbon Dioxide Level 24, Anion Gap 8, Blood Urea Nitrogen 34H, Creatinine 3.3H, Estimat Glomerular Filtration Rate 19.4, Glucose Level 156H, Calcium Level 6.9L, Phosphorus Level 4.7, Magnesium Level 1.6L, Total Bilirubin 0.1L, Aspartate Amino Transf (AST/SGOT) 18, Alanine Aminotransferase (ALT/SGPT) 27, Alkaline Phosphatase 76, Total Protein 4.5L, Albumin 1.2L, Globulin 3.3, Albumin/Globulin Ratio 0.4L Height (Feet): 5 Height (Inches): 6.00 Weight (Pounds): 190 General Appearance: no apparent distress, alert Neurologic: oriented x 3, responsive Toney Joseph MD Dec 11, 2017 15:47
--- NOTE | 2017-12-11 16:15 | Procedure Note ---
DATE OF PROCEDURE: 12/11/2017 SURGEON: Carlos Muro M.D. ANESTHESIOLOGIST: Dr. Mckenna. REFERRING PHYSICIAN: Dr. Romaine Molina. PROCEDURE: Colonoscopy with hemostasis and polypectomy. ANESTHESIA: Per Dr. Mckenna. INSTRUMENT: Olympus adult flexible colonoscope. INDICATION: Post-polypectomy bleed. The procedure, risks, benefits, and possible consequences, including hemorrhage, aspiration, perforation and infection, and alternative treatments, were explained to the patient/legal guardian by Dr. Carlos Muro and the patient/legal guardian understood and accepted these risks. DESCRIPTION OF PROCEDURE: After informed consent was obtained and the patient was adequately sedated, first rectal exam was performed which was positive for internal hemorrhoids. The scope was advanced from the rectum into the cecum documented by appendiceal orifice, ileocecal valve, and right upper quadrant palpation. The patient had evidence of active bleeding from the polypectomy site. There were two sites in the proximal ascending colon, both of them were clipped and we used gold probe to coagulate. Then, we moved the scope down into the transverse colon, which had active bleeding from a polypectomy site. There was clot sitting on it. I think there was a little bit of stump of the polyp left and most probably was bleeding from that. First using a snare polypectomy technique, we removed the stump. Then using a snare, we removed the clot. Then we placed another clip on this one. On the way back, we saw another polyp in the descending colon about 40 cm from the anal verge, pedunculated, large, most probably missed in the last colonoscopy given the prep. We placed a clip at the base of the polyp and removed the rest of the polyp with the snare polypectomy technique. The polyp was retrieved. The patient tolerated procedure very well without any complication. SUMMARY OF FINDINGS: 1. Active bleeding from most probably polypectomy site in the transverse colon, status post hemostasis with both combination of the Hemoclip and gold probe cauterization. 2. A large polyp in the descending colon around 40 cm, pedunculated, removed with the snare polypectomy technique. RECOMMENDATIONS: The patient to be kept off of the aspirin and Plavix for at least another next 2 weeks. Hemoglobin and hematocrit to be monitored closely. The patient ordered to get 2 units of blood today. The patient to be observed and discharged when stable. I want to thank, Dr. Romaine Molina, for this kind referral. Carlos Muro M.D. DR: Patrice JOB#: [id number] CC:
--- NOTE | 2017-12-11 16:49 | General Progress Note ---
Assessment/Plan Problem List: (1) Anemia ICD Codes: D64.9 - Anemia, unspecified SNOMED: 182836674 (2) Diabetes ICD Codes: E11.9 - Type 2 diabetes mellitus without complications SNOMED: 57422356, 49187902 (3) Hypertension ICD Codes: I10 - Essential (primary) hypertension SNOMED: 67054177, 88756837 (4) Diabetic foot ulcer ICD Codes: E11.621 - Type 2 diabetes mellitus with foot ulcer; L97.509 - Non- pressure chronic ulcer of other part of unspecified foot with unspecified severity SNOMED: 244416043, 81444535 Status: unchanged Assessment/Plan s/p polypectomy per dr jewell is bleeding from polypectomy site severe anemia 6.6 arf need to moniter for further gi bleed not safe for dc foot osteomylitis Subjective Allergies: Coded Allergies: No Known Allergies (Unverified , 12/04/17) Subjective foot pain Objective Last 24 Hour Vital Signs Date Time Temp Pulse Resp B/P (MAP) Pulse Ox O2 Delivery O2 Flow Rate FiO2 12/11/17 13:32 121/67 12/11/17 12:00 63 12/11/17 12:00 97.0 68 20 121/67 (85) 97 97.0 12/11/17 11:57 97.8 60 20 114/68 (83) 96 97.8 12/11/17 10:24 208.4 55 18 100 12/11/17 10:22 208.4 55 18 100 12/11/17 09:45 97.9 63 16 115/75 100 Nasal Cannula 3 97.9 12/11/17 09:30 97.8 61 15 111/77 100 Nasal Cannula 3 97.8 12/11/17 09:20 59 17 105/74 98 Nasal Cannula 3 12/11/17 09:15 98.0 58 15 105/78 100 Nasal Cannula 3 98.0 12/11/17 09:10 98.2 61 18 110/69 100 Nasal Cannula 3 98.2 12/11/17 09:00 Room Air 12/11/17 06:14 126/67 12/11/17 06:13 126/67 12/11/17 04:00 97.6 69 20 126/67 (86) 97 97.6 12/11/17 04:00 68 12/11/17 00:00 96.4 72 18 136/74 (94) 97 96.4 12/11/17 00:00 74 12/10/17 21:11 141/84 12/10/17 21:11 141/84 12/10/17 21:00 Room Air 12/10/17 20:00 73 12/10/17 20:00 98.2 72 19 141/84 (103) 97 98.2 Intake and Output 12/10/17 12/11/17 19:00 07:00 Intake Total 300 ml Output Total 400 ml 1100 ml Balance -100 ml -1100 ml Intake Oral 300 ml Output Urine Total 400 ml 1100 ml # Bowel Movements 1 Laboratory Tests 12/11/17 04:00: White Blood Count 9.5, Red Blood Count 2.32L, Hemoglobin 6.6*L, Hematocrit 20.2L , Mean Corpuscular Volume 87, Mean Corpuscular Hemoglobin 28.5, Mean Corpuscular Hemoglobin Concent 32.6, Red Cell Distribution Width 14.2, Platelet Count 158, Mean Platelet Volume 6.0L, Neutrophils (%) (Auto) , Lymphocytes (%) ( Auto) , Monocytes (%) (Auto) , Eosinophils (%) (Auto) , Basophils (%) (Auto) , Differential Total Cells Counted 100, Neutrophils % (Manual) 80H, Lymphocytes % (Manual) 17L, Monocytes % (Manual) 3, Eosinophils % (Manual) 0, Basophils % ( Manual) 0, Band Neutrophils 0, Platelet Estimate Adequate, Platelet Morphology Normal, Hypochromasia 1+, Anisocytosis 1+, Sodium Level 143, Potassium Level 4.1 , Chloride Level 111H, Carbon Dioxide Level 24, Anion Gap 8, Blood Urea Nitrogen 34H, Creatinine 3.3H, Estimat Glomerular Filtration Rate 19.4, Glucose Level 156H, Calcium Level 6.9L, Phosphorus Level 4.7, Magnesium Level 1.6L, Total Bilirubin 0.1L, Aspartate Amino Transf (AST/SGOT) 18, Alanine Aminotransferase (ALT/SGPT) 27, Alkaline Phosphatase 76, Total Protein 4.5L, Albumin 1.2L, Globulin 3.3, Albumin/Globulin Ratio 0.4L Height (Feet): 5 Height (Inches): 6.00 Weight (Pounds): 190 Romaine Molina MD Dec 11, 2017 16:49
[2017-12-11] MEDS: Dyna-Hex 2% Top Sol 2oz TOPIC SCH (20:00)
[2017-12-11] MEDS: Iron Sucrose 100 MG in NS 55 ML IV SCH (21:00)
[2017-12-11] MEDS: Atorvastatin 20mg tab ORAL SCH (21:00)
[2017-12-11] MEDS: Tamsulosin 0.4mg cap ORAL SCH (21:00)
[2017-12-12] VITALS: BP 148/80
[2017-12-12] MEDS: Dyna-Hex 2% Top Sol 2oz TOPIC SCH ×2 (02:10→21:40)
[2017-12-12 04:00] VITALS: BP 168/87
[2017-12-12 04:34] LABS: HEMATOCRIT 22.7 % (42.0-52.0); HEMOGLOBIN 7.6 G/DL (14.2-18.0); MEAN CORPUSCULAR VOLUME 87 FL (80-99); PLATELET COUNT 148 K/UL (150-450); RED BLOOD COUNT 2.59 M/UL (4.70-6.10); RED CELL DISTRIBUTION WIDTH 13.2 % (11.6-14.8); WHITE BLOOD COUNT 7.8 K/UL (4.8-10.8)
[2017-12-12 04:59] LABS: ALANINE AMINOTRANSFERASE 24 U/L (12-78); ALBUMIN 1.3 G/DL (3.4-5.0); ALBUMIN/GLOBULIN RATIO 0.4 (1.0-2.7); ALKALINE PHOSPHATASE 71 U/L (46-116); ANION GAP 7 mmol/L (5-15); ASPARTATE AMINO TRANSFERASE 13 U/L (15-37); BILIRUBIN,TOTAL 0.1 MG/DL (0.2-1.0); BLOOD UREA NITROGEN 36 mg/dL (7-18); CALCIUM 7.1 MG/DL (8.5-10.1); CARBON DIOXIDE 24 MMOL/L (21-32); CHLORIDE 111 MMOL/L (98-107); CREATININE 3.4 MG/DL (0.55-1.30); PHOSPHORUS 5.1 MG/DL (2.5-4.9); POTASSIUM 4.1 MMOL/L (3.5-5.1); SODIUM 142 MMOL/L (136-145)
[2017-12-12] MEDS: HydrALAZINE 50mg tab ORAL SCH ×3 (06:31→21:41)
[2017-12-12] MEDS: NovoLOG Insulin Flexpen SUBQ SCH ×4 (06:33→21:43)
[2017-12-12 08:00] VITALS: BP 147/73
--- NOTE | 2017-12-12 08:30 | General Progress Note ---
Assessment/Plan Status: unchanged Assessment/Plan 1. Anemia due to Gi bleed from polypectomy site --> Continue to closely monitor for improvement. --> Anemia panel has been reviewed, will trend cbc --> Hgb goal >7 --> 12/10 s/p 1 unit, 12/11 s/p 1 unit, 12/12 1 unit. --> no asa or palcix x 2 weeks 2. Anemia due to underlying kidney disease. --> Closely monitor for improvement. 3. Mild protein-caloric malnutrition. 4. Leukocytosis potentially secondary to reactive process. --> Cont abx --> WBC unchanged. 5. Diabetes mellitus. A1c goal less than 7. 6. Constipation. Endoscopy as per gastrointestinal service. Subjective Date patient seen: Dec 12, 2017 ROS Limited/Unobtainable: Yes Hematologic/Lymphatic: Reports: anemia Allergies: Coded Allergies: No Known Allergies (Unverified , 12/04/17) All Systems: reviewed and negative except above Subjective Pt refused all care and assessments overnight. Hgb remains low, 1 unit PRBC ordered. Objective Last 24 Hour Vital Signs Date Time Temp Pulse Resp B/P (MAP) Pulse Ox O2 Delivery O2 Flow Rate FiO2 12/12/17 06:32 168/87 12/12/17 06:31 168/87 12/12/17 04:00 72 12/12/17 04:00 98.3 75 19 168/87 (114) 99 98.3 12/12/17 02:00 Room Air 12/12/17 00:00 98.1 73 20 148/80 (102) 99 98.1 12/12/17 00:00 72 12/11/17 20:00 66 12/11/17 16:00 70 12/11/17 16:00 97.3 70 20 140/72 (94) 100 97.3 12/11/17 13:32 121/67 12/11/17 12:00 63 12/11/17 12:00 97.0 68 20 121/67 (85) 97 97.0 12/11/17 11:57 97.8 60 20 114/68 (83) 96 97.8 12/11/17 10:24 208.4 55 18 100 12/11/17 10:22 208.4 55 18 100 12/11/17 09:45 97.9 63 16 115/75 100 Nasal Cannula 3 97.9 12/11/17 09:30 97.8 61 15 111/77 100 Nasal Cannula 3 97.8 12/11/17 09:20 59 17 105/74 98 Nasal Cannula 3 12/11/17 09:15 98.0 58 15 105/78 100 Nasal Cannula 3 98.0 12/11/17 09:10 98.2 61 18 110/69 100 Nasal Cannula 3 98.2 12/11/17 09:00 Room Air Intake and Output 12/11/17 12/12/17 19:00 07:00 Intake Total 240 ml 780 ml Balance 240 ml 780 ml Intake Oral 240 ml 780 ml # Voids 1 3 # Bowel Movements 1 2 Laboratory Tests 12/12/17 04:00: White Blood Count 7.8, Red Blood Count 2.59L, Hemoglobin 7.6L, Hematocrit 22.7L , Mean Corpuscular Volume 87, Mean Corpuscular Hemoglobin 29.4, Mean Corpuscular Hemoglobin Concent 33.7, Red Cell Distribution Width 13.2, Platelet Count 148L, Mean Platelet Volume 6.1L, Neutrophils (%) (Auto) , Lymphocytes (%) (Auto) , Monocytes (%) (Auto) , Eosinophils (%) (Auto) , Basophils (%) (Auto) , Sodium Level 142, Potassium Level 4.1, Chloride Level 111H, Carbon Dioxide Level 24, Anion Gap 7, Blood Urea Nitrogen 36H, Creatinine 3.4H, Estimat Glomerular Filtration Rate 18.8, Glucose Level 124H, Uric Acid 6.9, Calcium Level 7.1L, Phosphorus Level 5.1H, Magnesium Level 1.6L, Total Bilirubin 0.1L, Aspartate Amino Transf (AST/SGOT) 13L, Alanine Aminotransferase (ALT/SGPT) 24, Alkaline Phosphatase 71, C-Reactive Protein, Quantitative 2.7H, Pro-B-Type Natriuretic Peptide 4773H, Total Protein 4.6L, Albumin 1.3L, Globulin 3.3, Albumin/Globulin Ratio 0.4L Height (Feet): 5 Height (Inches): 6.00 Weight (Pounds): 190 General Appearance: no apparent distress EENT: PERRL/EOMI Neck: normal alignment Cardiovascular: regularly irregular Respiratory/Chest: no respiratory distress Abdomen: normal bowel sounds Ronnie Bray MD Dec 12, 2017 08:30
--- NOTE | 2017-12-12 09:24 | Nephrology Progress Note ---
Assessment/Plan Problem List: (1) Renal failure (ARF), acute on chronic (2) Anemia in chronic kidney disease (CKD) (3) Acute post-hemorrhagic anemia (4) Hypertensive urgency (5) Diabetic foot ulcer (6) Rectal bleed Assessment: over night, post polipectopy 12/08 Assessment Renal failure- likely chronic due to diabetic nephropathy Anemia , had rectal bleed post polypectomy Proteinuria / Hypoalbuminemia HTN OOC Diabetic foot ULCER Left ventricular ejection fraction estimated to be 55-60 %. Plan Hgbs low- need more transfusion- Rectal bleed , management per GI, done BP management- meds rearranged ,,,BP OK DC Plavix and ASA for next 2 weeks per GI Wound care Avoid nephrotoxics Manage Anemia Monitor renal parameters per orders kidney NIGEL Increased renal echogenicity bilaterally. Correlate for medical renal disease. IV Iron Subjective ROS Limited/Unobtainable: No Constitutional: Reports: other - anxious to go home Subjective rectal bleed Objective Objective Last 24 Hour Vital Signs Date Time Temp Pulse Resp B/P (MAP) Pulse Ox O2 Delivery O2 Flow Rate FiO2 12/12/17 08:46 71 147/73 12/12/17 08:00 98.1 71 20 147/73 (97) 99 98.1 12/12/17 06:32 168/87 12/12/17 06:31 168/87 12/12/17 04:00 72 12/12/17 04:00 98.3 75 19 168/87 (114) 99 98.3 12/12/17 02:00 Room Air 12/12/17 00:00 98.1 73 20 148/80 (102) 99 98.1 12/12/17 00:00 72 12/11/17 20:00 66 12/11/17 16:00 70 12/11/17 16:00 97.3 70 20 140/72 (94) 100 97.3 12/11/17 13:32 121/67 12/11/17 12:00 63 12/11/17 12:00 97.0 68 20 121/67 (85) 97 97.0 12/11/17 11:57 97.8 60 20 114/68 (83) 96 97.8 12/11/17 10:24 208.4 55 18 100 12/11/17 10:22 208.4 55 18 100 12/11/17 09:45 97.9 63 16 115/75 100 Nasal Cannula 3 97.9 12/11/17 09:30 97.8 61 15 111/77 100 Nasal Cannula 3 97.8 Intake and Output 12/11/17 12/12/17 19:00 07:00 Intake Total 240 ml 780 ml Balance 240 ml 780 ml Intake Oral 240 ml 780 ml # Voids 1 3 # Bowel Movements 1 2 Current Medications Medications (Trade) Dose Ordered Sig/Wilbert Route PRN Reason Start Time Stop Time Status Last Admin Dose Admin Acetaminophen/ Hydrocodone Bitart ([place] 10/325) 1 tab Q4H PRN ORAL For Pain 12/06/17 22:30 12/13/17 22:29 Amlodipine Besylate (Norvasc) 10 mg DAILY ORAL 12/09/17 09:00 01/08/18 08:59 12/12/17 08:46 Atorvastatin Calcium (Lipitor) 40 mg BEDTIME ORAL 12/07/17 21:00 01/06/18 20:59 12/10/17 21:10 Chlorhexidine Gluconate (Kavita-Hex 2%) 1 applic DAILY@2000 TOPIC 12/07/17 20:00 01/06/18 19:59 12/12/17 02:10 Clonidine HCl (Catapres Tab) 0.1 mg Q8HR ORAL 12/09/17 12:30 01/08/18 12:29 12/12/17 06:32 Dextrose (Dextrose 50%) 25 ml STAT PRN IV Hypoglycemia 12/06/17 22:30 01/05/18 22:29 Dextrose (Dextrose 50%) 50 ml STAT PRN IV Hypoglycemia 12/06/17 22:30 01/05/18 22:29 Hydralazine HCl (Apresoline) 50 mg Q8HR ORAL 12/09/17 12:30 01/07/18 12:29 12/12/17 06:31 Insulin Aspart (NovoLOG) BEFORE MEALS AND HS SUBQ 12/07/17 06:30 01/06/18 06:29 12/12/17 06:33 Iron Sucrose 100 mg/Sodium Chloride 60 ml @ 240 mls/hr BEDTIME IV 12/10/17 21:00 12/14/17 21:14 12/10/17 21:10 Magnesium Sulfate 100 ml @ 100 mls/hr Q1H IVPB 12/12/17 10:00 12/12/17 11:59 Minoxidil (Loniten) 2.5 mg Q4H PRN ORAL BP over 165 syst 12/09/17 11:30 01/08/18 11:29 12/09/17 17:46 Pantoprazole (Protonix) 40 mg DAILY ORAL 12/08/17 10:30 01/07/18 10:29 12/12/17 08:46 Tamsulosin HCl (Flomax) 0.4 mg BEDTIME ORAL 12/08/17 21:00 01/07/18 20:59 12/10/17 21:10 Laboratory Tests 12/12/17 04:00: White Blood Count 7.8, Red Blood Count 2.59L, Hemoglobin 7.6L, Hematocrit 22.7L , Mean Corpuscular Volume 87, Mean Corpuscular Hemoglobin 29.4, Mean Corpuscular Hemoglobin Concent 33.7, Red Cell Distribution Width 13.2, Platelet Count 148L, Mean Platelet Volume 6.1L, Neutrophils (%) (Auto) , Lymphocytes (%) (Auto) , Monocytes (%) (Auto) , Eosinophils (%) (Auto) , Basophils (%) (Auto) , Sodium Level 142, Potassium Level 4.1, Chloride Level 111H, Carbon Dioxide Level 24, Anion Gap 7, Blood Urea Nitrogen 36H, Creatinine 3.4H, Estimat Glomerular Filtration Rate 18.8, Glucose Level 124H, Uric Acid 6.9, Calcium Level 7.1L, Phosphorus Level 5.1H, Magnesium Level 1.6L, Total Bilirubin 0.1L, Aspartate Amino Transf (AST/SGOT) 13L, Alanine Aminotransferase (ALT/SGPT) 24, Alkaline Phosphatase 71, C-Reactive Protein, Quantitative 2.7H, Pro-B-Type Natriuretic Peptide 4773H, Total Protein 4.6L, Albumin 1.3L, Globulin 3.3, Albumin/Globulin Ratio 0.4L Height (Feet): 5 Height (Inches): 6.00 Weight (Pounds): 190 General Appearance: no apparent distress Cardiovascular: normal rate Respiratory/Chest: decreased breath sounds Abdomen: soft Objective no change Gino Connors MD Dec 12, 2017 09:24
[2017-12-12 12:11] VITALS: BP 139/82
--- NOTE | 2017-12-12 13:10 | General Surgery Progress Note ---
General Surgery-Progress Note Subjective Symptoms: improved Additional Comments doing well. no acute events. wound care going well Objective Last 24 Hour Vital Signs Date Time Temp Pulse Resp B/P (MAP) Pulse Ox O2 Delivery O2 Flow Rate FiO2 12/12/17 12:11 98.4 69 20 139/82 (101) 98 98.4 12/12/17 09:00 Room Air 12/12/17 08:46 71 147/73 12/12/17 08:00 98.1 71 20 147/73 (97) 99 98.1 12/12/17 06:32 168/87 12/12/17 06:31 168/87 12/12/17 04:00 72 12/12/17 04:00 98.3 75 19 168/87 (114) 99 98.3 12/12/17 02:00 Room Air 12/12/17 00:00 98.1 73 20 148/80 (102) 99 98.1 12/12/17 00:00 72 12/11/17 20:00 66 12/11/17 16:00 70 12/11/17 16:00 97.3 70 20 140/72 (94) 100 97.3 12/11/17 13:32 121/67 I&O Intake and Output 12/11/17 12/12/17 19:00 07:00 Intake Total 240 ml 780 ml Balance 240 ml 780 ml Intake Oral 240 ml 780 ml # Voids 1 3 # Bowel Movements 1 2 Dressing: saturated Wound: clean Drains: none Cardiovascular: RSR Respiratory: clear Abdomen: soft, flat, non-tender Extremities: no tenderness Laboratory Tests Test 12/12/17 04:00 White Blood Count 7.8 K/UL (4.8-10.8) Red Blood Count 2.59 M/UL (4.70-6.10) L Hemoglobin 7.6 G/DL (14.2-18.0) L Hematocrit 22.7 % (42.0-52.0) L Mean Corpuscular Volume 87 FL (80-99) Mean Corpuscular Hemoglobin 29.4 PG (27.0-31.0) Mean Corpuscular Hemoglobin Concent 33.7 G/DL (32.0-36.0) Red Cell Distribution Width 13.2 % (11.6-14.8) Platelet Count 148 K/UL (150-450) L Mean Platelet Volume 6.1 FL (6.5-10.1) L Neutrophils (%) (Auto) % (45.0-75.0) Lymphocytes (%) (Auto) % (20.0-45.0) Monocytes (%) (Auto) % (1.0-10.0) Eosinophils (%) (Auto) % (0.0-3.0) Basophils (%) (Auto) % (0.0-2.0) Sodium Level 142 MMOL/L (136-145) Potassium Level 4.1 MMOL/L (3.5-5.1) Chloride Level 111 MMOL/L (98-107) H Carbon Dioxide Level 24 MMOL/L (21-32) Anion Gap 7 mmol/L (5-15) Blood Urea Nitrogen 36 mg/dL (7-18) H Creatinine 3.4 MG/DL (0.55-1.30) H Estimat Glomerular Filtration Rate 18.8 mL/min (>60) Glucose Level 124 MG/DL (74-106) H Uric Acid 6.9 MG/DL (2.6-7.2) Calcium Level 7.1 MG/DL (8.5-10.1) L Phosphorus Level 5.1 MG/DL (2.5-4.9) H Magnesium Level 1.6 MG/DL (1.8-2.4) L Total Bilirubin 0.1 MG/DL (0.2-1.0) L Aspartate Amino Transf (AST/SGOT) 13 U/L (15-37) L Alanine Aminotransferase (ALT/SGPT) 24 U/L (12-78) Alkaline Phosphatase 71 U/L (46-116) C-Reactive Protein, Quantitative 2.7 mg/dL (0.00-0.90) H Pro-B-Type Natriuretic Peptide 4773 pg/mL (0-125) H Total Protein 4.6 G/DL (6.4-8.2) L Albumin 1.3 G/DL (3.4-5.0) L Globulin 3.3 g/dL Albumin/Globulin Ratio 0.4 (1.0-2.7) L Plan Problems: (1) Anemia (2) Diabetes (3) Ulcer of right heel and midfoot with fat layer exposed Assessment & Plan: left foot amputation, right foot amputation, right foot with large heel ulcer non healing possibly down to bone -MRI right foot -- Extensive diffuse soft tissue edema, nonspecific in appearance but likely on the basis of cellulitis given stated clinical history Possible small 16 mm abscess in the medial ankle subcutaneous fat No osseous signal abnormality to suggest osteomyelitis on exam no abscess noted. no drainable collection seen. -wet to dry dressing to help with debridement of fibrinous debris. -keep off wound -heel protectors. Angel Browning Dec 12, 2017 13:10
--- NOTE | 2017-12-12 14:23 | GI Progress Note ---
Assessment/Plan Problems: (1) Acute post-hemorrhagic anemia ICD Codes: D62 - Acute posthemorrhagic anemia SNOMED: 123615806 (2) Rectal bleed ICD Codes: K62.5 - Hemorrhage of anus and rectum SNOMED: 73253850 (3) Anemia in chronic kidney disease (CKD) ICD Codes: N18.9 - Chronic kidney disease, unspecified; D63.1 - Anemia in chronic kidney disease SNOMED: 850063704, 206381215 (4) Diabetes ICD Codes: E11.9 - Type 2 diabetes mellitus without complications SNOMED: 42415411, 62012334 (5) Anemia ICD Codes: D64.9 - Anemia, unspecified SNOMED: 369924065 Status: progressing Status Narrative Discussed with Dr. Muro. Assessment/Plan SUMMARY OF FINDINGS: 1. Active bleeding from most probably polypectomy site in the transverse colon, status post hemostasis with both combination of the Hemoclip and gold probe cauterization. 2. A large polyp in the descending colon around 40 cm, pedunculated, removed with the snare polypectomy technique. RECOMMENDATIONS: The patient to be kept off of the aspirin and Plavix for at least another next 2 weeks. monitor H&H closely, prn transfusions bowel rest >> CLD, will advance to FLD today ppi fu labs patient will require colonoscopy x 1 year given large polyp The patient was seen and examined at bedside and all new and available data was reviewed in the patients chart. I agree with the above findings, impression and plan. (Patient seen earlier today. Signature stamp does not reflect patient encounter time.). - Carlos Muro MD Subjective Subjective still has blood noted in stool Objective Last 24 Hour Vital Signs Date Time Temp Pulse Resp B/P (MAP) Pulse Ox O2 Delivery O2 Flow Rate FiO2 12/12/17 12:11 98.4 69 20 139/82 (101) 98 98.4 12/12/17 09:00 Room Air 12/12/17 08:46 71 147/73 12/12/17 08:00 98.1 71 20 147/73 (97) 99 98.1 12/12/17 06:32 168/87 12/12/17 06:31 168/87 12/12/17 04:00 72 12/12/17 04:00 98.3 75 19 168/87 (114) 99 98.3 12/12/17 02:00 Room Air 12/12/17 00:00 98.1 73 20 148/80 (102) 99 98.1 12/12/17 00:00 72 12/11/17 20:00 66 12/11/17 16:00 70 12/11/17 16:00 97.3 70 20 140/72 (94) 100 97.3 Intake and Output 12/11/17 12/12/17 19:00 07:00 Intake Total 240 ml 780 ml Balance 240 ml 780 ml Intake Oral 240 ml 780 ml # Voids 1 3 # Bowel Movements 1 2 Laboratory Tests Test 12/12/17 04:00 White Blood Count 7.8 K/UL (4.8-10.8) Red Blood Count 2.59 M/UL (4.70-6.10) L Hemoglobin 7.6 G/DL (14.2-18.0) L Hematocrit 22.7 % (42.0-52.0) L Mean Corpuscular Volume 87 FL (80-99) Mean Corpuscular Hemoglobin 29.4 PG (27.0-31.0) Mean Corpuscular Hemoglobin Concent 33.7 G/DL (32.0-36.0) Red Cell Distribution Width 13.2 % (11.6-14.8) Platelet Count 148 K/UL (150-450) L Mean Platelet Volume 6.1 FL (6.5-10.1) L Neutrophils (%) (Auto) % (45.0-75.0) Lymphocytes (%) (Auto) % (20.0-45.0) Monocytes (%) (Auto) % (1.0-10.0) Eosinophils (%) (Auto) % (0.0-3.0) Basophils (%) (Auto) % (0.0-2.0) Sodium Level 142 MMOL/L (136-145) Potassium Level 4.1 MMOL/L (3.5-5.1) Chloride Level 111 MMOL/L (98-107) H Carbon Dioxide Level 24 MMOL/L (21-32) Anion Gap 7 mmol/L (5-15) Blood Urea Nitrogen 36 mg/dL (7-18) H Creatinine 3.4 MG/DL (0.55-1.30) H Estimat Glomerular Filtration Rate 18.8 mL/min (>60) Glucose Level 124 MG/DL (74-106) H Uric Acid 6.9 MG/DL (2.6-7.2) Calcium Level 7.1 MG/DL (8.5-10.1) L Phosphorus Level 5.1 MG/DL (2.5-4.9) H Magnesium Level 1.6 MG/DL (1.8-2.4) L Total Bilirubin 0.1 MG/DL (0.2-1.0) L Aspartate Amino Transf (AST/SGOT) 13 U/L (15-37) L Alanine Aminotransferase (ALT/SGPT) 24 U/L (12-78) Alkaline Phosphatase 71 U/L (46-116) C-Reactive Protein, Quantitative 2.7 mg/dL (0.00-0.90) H Pro-B-Type Natriuretic Peptide 4773 pg/mL (0-125) H Total Protein 4.6 G/DL (6.4-8.2) L Albumin 1.3 G/DL (3.4-5.0) L Globulin 3.3 g/dL Albumin/Globulin Ratio 0.4 (1.0-2.7) L Height (Feet): 5 Height (Inches): 6.00 Weight (Pounds): 190 General Appearance: WD/WN, no apparent distress, alert Cardiovascular: normal rate Respiratory/Chest: normal breath sounds, no respiratory distress Abdominal Exam: normal bowel sounds, non tender, soft Extremities: normal range of motion, non-tender Holley Ahumada NP Dec 12, 2017 14:23
[2017-12-12 14:42] LABS: BASOPHILS % (AUTO) 0.8 % (0.0-2.0); HEMATOCRIT 26.3 % (42.0-52.0); HEMOGLOBIN 8.4 G/DL (14.2-18.0); LYMPHOCYTES % (AUTO) 20.8 % (20.0-45.0); MEAN CORPUSCULAR VOLUME 88 FL (80-99); MONOCYTES % (AUTO) 9.2 % (1.0-10.0); NEUTROPHILS % (AUTO) 64.2 % (45.0-75.0); PLATELET COUNT 136 K/UL (150-450); RED BLOOD COUNT 2.98 M/UL (4.70-6.10); RED CELL DISTRIBUTION WIDTH 13.7 % (11.6-14.8); WHITE BLOOD COUNT 7.7 K/UL (4.8-10.8)
--- NOTE | 2017-12-12 15:11 | General Progress Note ---
Assessment/Plan Assessment/Plan Adjustment d/o anxiety d/o ativan prn ro/st Subjective Date patient seen: Dec 12, 2017 Neurologic/Psychiatric: Reports: anxiety, depressed, emotional problems Allergies: Coded Allergies: No Known Allergies (Unverified , 12/04/17) Objective Last 24 Hour Vital Signs Date Time Temp Pulse Resp B/P (MAP) Pulse Ox O2 Delivery O2 Flow Rate FiO2 12/12/17 14:28 139/82 12/12/17 14:28 139/82 12/12/17 12:11 98.4 69 20 139/82 (101) 98 98.4 12/12/17 09:00 Room Air 12/12/17 08:46 71 147/73 12/12/17 08:00 98.1 71 20 147/73 (97) 99 98.1 12/12/17 06:32 168/87 12/12/17 06:31 168/87 12/12/17 04:00 72 12/12/17 04:00 98.3 75 19 168/87 (114) 99 98.3 12/12/17 02:00 Room Air 12/12/17 00:00 98.1 73 20 148/80 (102) 99 98.1 12/12/17 00:00 72 12/11/17 20:00 66 12/11/17 16:00 70 12/11/17 16:00 97.3 70 20 140/72 (94) 100 97.3 Intake and Output 12/11/17 12/12/17 19:00 07:00 Intake Total 240 ml 780 ml Balance 240 ml 780 ml Intake Oral 240 ml 780 ml # Voids 1 3 # Bowel Movements 1 2 Laboratory Tests 12/12/17 04:00: White Blood Count 7.8, Red Blood Count 2.59L, Hemoglobin 7.6L, Hematocrit 22.7L , Mean Corpuscular Volume 87, Mean Corpuscular Hemoglobin 29.4, Mean Corpuscular Hemoglobin Concent 33.7, Red Cell Distribution Width 13.2, Platelet Count 148L, Mean Platelet Volume 6.1L, Neutrophils (%) (Auto) , Lymphocytes (%) (Auto) , Monocytes (%) (Auto) , Eosinophils (%) (Auto) , Basophils (%) (Auto) , Sodium Level 142, Potassium Level 4.1, Chloride Level 111H, Carbon Dioxide Level 24, Anion Gap 7, Blood Urea Nitrogen 36H, Creatinine 3.4H, Estimat Glomerular Filtration Rate 18.8, Glucose Level 124H, Uric Acid 6.9, Calcium Level 7.1L, Phosphorus Level 5.1H, Magnesium Level 1.6L, Total Bilirubin 0.1L, Aspartate Amino Transf (AST/SGOT) 13L, Alanine Aminotransferase (ALT/SGPT) 24, Alkaline Phosphatase 71, C-Reactive Protein, Quantitative 2.7H, Pro-B-Type Natriuretic Peptide 4773H, Total Protein 4.6L, Albumin 1.3L, Globulin 3.3, Albumin/Globulin Ratio 0.4L 12/12/17 14:30: White Blood Count 7.7, Red Blood Count 2.98L, Hemoglobin 8.4L, Hematocrit 26.3L , Mean Corpuscular Volume 88, Mean Corpuscular Hemoglobin 28.3, Mean Corpuscular Hemoglobin Concent 32.0, Red Cell Distribution Width 13.7, Platelet Count 136L, Mean Platelet Volume 6.0L, Neutrophils (%) (Auto) 64.2, Lymphocytes (%) (Auto) 20.8, Monocytes (%) (Auto) 9.2, Eosinophils (%) (Auto) 5.0H, Basophils (%) (Auto) 0.8 Height (Feet): 5 Height (Inches): 6.00 Weight (Pounds): 190 Toney Joseph MD Dec 12, 2017 15:11
[2017-12-12 16:00] VITALS: BP 151/98
--- NOTE | 2017-12-12 18:48 | General Progress Note ---
Assessment/Plan Problem List: (1) Anemia ICD Codes: D64.9 - Anemia, unspecified SNOMED: 001276288 (2) Diabetes ICD Codes: E11.9 - Type 2 diabetes mellitus without complications SNOMED: 06315391, 44434647 (3) Hypertension ICD Codes: I10 - Essential (primary) hypertension SNOMED: 03461291, 69825529 (4) Diabetic foot ulcer ICD Codes: E11.621 - Type 2 diabetes mellitus with foot ulcer; L97.509 - Non- pressure chronic ulcer of other part of unspecified foot with unspecified severity SNOMED: 997405032, 33009456 Assessment/Plan s/p polypectomy recurrent bleeding atpolypectomy site requiring multiple transfusions afebrile dc to snf if cleared by gi Subjective Allergies: Coded Allergies: No Known Allergies (Unverified , 12/04/17) Subjective foot pain Objective Last 24 Hour Vital Signs Date Time Temp Pulse Resp B/P (MAP) Pulse Ox O2 Delivery O2 Flow Rate FiO2 12/12/17 16:00 69 12/12/17 16:00 97.9 77 20 151/98 (115) 98 97.9 12/12/17 14:28 139/82 12/12/17 14:28 139/82 12/12/17 12:11 98.4 69 20 139/82 (101) 98 98.4 12/12/17 12:00 69 12/12/17 09:00 Room Air 12/12/17 08:46 71 147/73 12/12/17 08:00 98.1 71 20 147/73 (97) 99 98.1 12/12/17 08:00 69 12/12/17 06:32 168/87 12/12/17 06:31 168/87 12/12/17 04:00 72 12/12/17 04:00 98.3 75 19 168/87 (114) 99 98.3 12/12/17 02:00 Room Air 12/12/17 00:00 98.1 73 20 148/80 (102) 99 98.1 12/12/17 00:00 72 12/11/17 20:00 66 Intake and Output 12/11/17 12/12/17 19:00 07:00 Intake Total 240 ml 780 ml Balance 240 ml 780 ml Intake Oral 240 ml 780 ml # Voids 1 3 # Bowel Movements 1 2 Laboratory Tests 12/12/17 04:00: White Blood Count 7.8, Red Blood Count 2.59L, Hemoglobin 7.6L, Hematocrit 22.7L , Mean Corpuscular Volume 87, Mean Corpuscular Hemoglobin 29.4, Mean Corpuscular Hemoglobin Concent 33.7, Red Cell Distribution Width 13.2, Platelet Count 148L, Mean Platelet Volume 6.1L, Neutrophils (%) (Auto) , Lymphocytes (%) (Auto) , Monocytes (%) (Auto) , Eosinophils (%) (Auto) , Basophils (%) (Auto) , Sodium Level 142, Potassium Level 4.1, Chloride Level 111H, Carbon Dioxide Level 24, Anion Gap 7, Blood Urea Nitrogen 36H, Creatinine 3.4H, Estimat Glomerular Filtration Rate 18.8, Glucose Level 124H, Uric Acid 6.9, Calcium Level 7.1L, Phosphorus Level 5.1H, Magnesium Level 1.6L, Total Bilirubin 0.1L, Aspartate Amino Transf (AST/SGOT) 13L, Alanine Aminotransferase (ALT/SGPT) 24, Alkaline Phosphatase 71, C-Reactive Protein, Quantitative 2.7H, Pro-B-Type Natriuretic Peptide 4773H, Total Protein 4.6L, Albumin 1.3L, Globulin 3.3, Albumin/Globulin Ratio 0.4L 12/12/17 14:30: White Blood Count 7.7, Red Blood Count 2.98L, Hemoglobin 8.4L, Hematocrit 26.3L , Mean Corpuscular Volume 88, Mean Corpuscular Hemoglobin 28.3, Mean Corpuscular Hemoglobin Concent 32.0, Red Cell Distribution Width 13.7, Platelet Count 136L, Mean Platelet Volume 6.0L, Neutrophils (%) (Auto) 64.2, Lymphocytes (%) (Auto) 20.8, Monocytes (%) (Auto) 9.2, Eosinophils (%) (Auto) 5.0H, Basophils (%) (Auto) 0.8 Height (Feet): 5 Height (Inches): 6.00 Weight (Pounds): 190 Cardiovascular: regular rhythm Respiratory/Chest: lungs clear Abdomen: soft Romaine Molina MD Dec 12, 2017 18:48
[2017-12-12 20:00] VITALS: BP 148/77
[2017-12-12] MEDS: Iron Sucrose 100 MG in NS 55 ML IV SCH (21:00)
[2017-12-12] MEDS: Tamsulosin 0.4mg cap ORAL SCH (21:41)
[2017-12-12] MEDS: Atorvastatin 20mg tab ORAL SCH (21:41)
[2017-12-13] VITALS (10 sets, daily range): BP systolic 139–162; BP diastolic 63–91
[2017-12-13] MEDS: NovoLOG Insulin Flexpen SUBQ SCH ×4 (06:30→21:16)
[2017-12-13] MEDS: HydrALAZINE 50mg tab ORAL SCH ×3 (07:18→22:24)
[2017-12-13 07:33] LABS: BASOPHILS % (AUTO) 0.9 % (0.0-2.0); EOSINOPHILS % (AUTO) 5.8 % (0.0-3.0); HEMATOCRIT 26.6 % (42.0-52.0); HEMOGLOBIN 8.8 G/DL (14.2-18.0); LYMPHOCYTES % (AUTO) 22.2 % (20.0-45.0); MEAN CORPUSCULAR VOLUME 87 FL (80-99); NEUTROPHILS % (AUTO) 60.1 % (45.0-75.0); PLATELET COUNT 132 K/UL (150-450); RED BLOOD COUNT 3.04 M/UL (4.70-6.10); RED CELL DISTRIBUTION WIDTH 13.4 % (11.6-14.8); WHITE BLOOD COUNT 8.4 K/UL (4.8-10.8)
[2017-12-13 07:57] LABS: ANION GAP 8 mmol/L (5-15); BLOOD UREA NITROGEN 34 mg/dL (7-18); CALCIUM 7.6 MG/DL (8.5-10.1); CARBON DIOXIDE 24 MMOL/L (21-32); CHLORIDE 110 MMOL/L (98-107); CREATININE 3.3 MG/DL (0.55-1.30); PHOSPHORUS 5.1 MG/DL (2.5-4.9); SODIUM 142 MMOL/L (136-145)
[2017-12-13] MEDS ORDERED: Fleet's Enema 133ml RECTAL SCH (09:48)
--- NOTE | 2017-12-13 09:48 | General Progress Note ---
Assessment/Plan Status: stable Assessment/Plan 1. Anemia due to Gi bleed from polypectomy site --> Continue to closely monitor for improvement. --> Anemia panel has been reviewed, will trend cbc --> Hgb goal >7 --> 12/10 s/p 1 unit, 12/11 s/p 1 unit, 12/12 1 unit. --> no asa or palcix x 2 weeks 2. Anemia due to underlying kidney disease. --> Closely monitor for improvement. 3. Mild protein-caloric malnutrition. 4. Leukocytosis potentially secondary to reactive process. --> Completed abx --> WBC normalized 5. Diabetes mellitus. A1c goal less than 7. 6. Constipation. Endoscopy as per gastrointestinal service. Subjective Date patient seen: Dec 13, 2017 ROS Limited/Unobtainable: Yes Hematologic/Lymphatic: Reports: anemia Allergies: Coded Allergies: No Known Allergies (Unverified , 12/04/17) All Systems: reviewed and negative except above Subjective S/P 1 unit PRBC, tolerated well. Hgb at 8.8 Pt c/o foot pain. Objective Last 24 Hour Vital Signs Date Time Temp Pulse Resp B/P (MAP) Pulse Ox O2 Delivery O2 Flow Rate FiO2 12/13/17 09:19 Room Air 12/13/17 08:23 74 141/80 12/13/17 08:18 97.9 74 20 141/80 (100) 97 97.9 12/13/17 07:18 145/79 12/13/17 07:18 145/79 12/13/17 04:00 67 12/13/17 04:00 98.0 67 20 145/79 (101) 100 98.0 12/13/17 00:00 98.0 61 19 141/76 (97) 99 98.0 12/13/17 00:00 59 12/12/17 21:41 148/77 12/12/17 21:40 148/77 12/12/17 21:00 Room Air 12/12/17 20:00 71 12/12/17 20:00 98.3 73 19 148/77 (100) 96 98.3 12/12/17 16:00 69 12/12/17 16:00 97.9 77 20 151/98 (115) 98 97.9 12/12/17 14:28 139/82 12/12/17 14:28 139/82 7/24/18 12:11 98.4 69 20 139/82 (101) 98 98.4 12/12/17 12:00 69 Intake and Output 12/12/17 12/13/17 19:00 07:00 # Voids 2 # Bowel Movements 2 1 Laboratory Tests 12/12/17 14:30: White Blood Count 7.7, Red Blood Count 2.98L, Hemoglobin 8.4L, Hematocrit 26.3L , Mean Corpuscular Volume 88, Mean Corpuscular Hemoglobin 28.3, Mean Corpuscular Hemoglobin Concent 32.0, Red Cell Distribution Width 13.7, Platelet Count 136L, Mean Platelet Volume 6.0L, Neutrophils (%) (Auto) 64.2, Lymphocytes (%) (Auto) 20.8, Monocytes (%) (Auto) 9.2, Eosinophils (%) (Auto) 5.0H, Basophils (%) (Auto) 0.8 12/13/17 06:35: White Blood Count 8.4, Red Blood Count 3.04L, Hemoglobin 8.8L, Hematocrit 26.6L , Mean Corpuscular Volume 87, Mean Corpuscular Hemoglobin 29.0, Mean Corpuscular Hemoglobin Concent 33.3, Red Cell Distribution Width 13.4, Platelet Count 132L, Mean Platelet Volume 6.2L, Neutrophils (%) (Auto) 60.1, Lymphocytes (%) (Auto) 22.2, Monocytes (%) (Auto) 11.0H, Eosinophils (%) (Auto) 5.8H, Basophils (%) (Auto) 0.9, Sodium Level 142, Potassium Level 4.0, Chloride Level 110H, Carbon Dioxide Level 24, Anion Gap 8, Blood Urea Nitrogen 34H, Creatinine 3.3H, Estimat Glomerular Filtration Rate 19.4, Glucose Level 83, Calcium Level 7.6L, Phosphorus Level 5.1H, Magnesium Level 1.9 Height (Feet): 5 Height (Inches): 6.00 Weight (Pounds): 187 General Appearance: no apparent distress EENT: PERRL/EOMI Neck: normal alignment Cardiovascular: normal peripheral pulses Respiratory/Chest: no respiratory distress Abdomen: soft Ronnie Bray MD Dec 13, 2017 09:48
--- NOTE | 2017-12-13 10:15 | Nephrology Progress Note ---
Assessment/Plan Problem List: (1) Renal failure (ARF), acute on chronic Assessment: sever hypoalbuminemia (2) Anemia in chronic kidney disease (CKD) (3) Acute post-hemorrhagic anemia (4) Hypertensive urgency (5) Diabetic foot ulcer (6) Rectal bleed Assessment: over night, post polipectopy 12/08 Assessment Renal failure- likely chronic due to diabetic nephropathy Anemia , had rectal bleed post polypectomy Proteinuria / Hypoalbuminemia HTN OOC Diabetic foot ULCER Left ventricular ejection fraction estimated to be 55-60 %. Plan Hgbs low- need more transfusion- continues to bleed- [place] due to renal failure and hypoalbuminemia- one dose Zaroxyllin Rectal bleed , management per GI, done BP management- meds rearranged ,,,BP OK DC Plavix and ASA for next 2 weeks per GI Wound care Avoid nephrotoxics Manage Anemia Monitor renal parameters per orders kidney NIGEL Increased renal echogenicity bilaterally. Correlate for medical renal disease. IV Iron Subjective ROS Limited/Unobtainable: No Constitutional: Reports: malaise, weakness Subjective rectal bleed Objective Objective Last 24 Hour Vital Signs Date Time Temp Pulse Resp B/P (MAP) Pulse Ox O2 Delivery O2 Flow Rate FiO2 12/13/17 09:19 Room Air 12/13/17 08:23 74 141/80 12/13/17 08:18 97.9 74 20 141/80 (100) 97 97.9 12/13/17 07:18 145/79 12/13/17 07:18 145/79 12/13/17 04:00 67 12/13/17 04:00 98.0 67 20 145/79 (101) 100 98.0 12/13/17 00:00 98.0 61 19 141/76 (97) 99 98.0 12/13/17 00:00 59 12/12/17 21:41 148/77 12/12/17 21:40 148/77 12/12/17 21:00 Room Air 12/12/17 20:00 71 12/12/17 20:00 98.3 73 19 148/77 (100) 96 98.3 12/12/17 16:00 69 12/12/17 16:00 97.9 77 20 151/98 (115) 98 97.9 12/12/17 14:28 139/82 12/12/17 14:28 139/82 7/24/18 12:11 98.4 69 20 139/82 (101) 98 98.4 12/12/17 12:00 69 Intake and Output 12/12/17 12/13/17 19:00 07:00 # Voids 2 # Bowel Movements 2 1 Laboratory Tests 12/12/17 14:30: White Blood Count 7.7, Red Blood Count 2.98L, Hemoglobin 8.4L, Hematocrit 26.3L , Mean Corpuscular Volume 88, Mean Corpuscular Hemoglobin 28.3, Mean Corpuscular Hemoglobin Concent 32.0, Red Cell Distribution Width 13.7, Platelet Count 136L, Mean Platelet Volume 6.0L, Neutrophils (%) (Auto) 64.2, Lymphocytes (%) (Auto) 20.8, Monocytes (%) (Auto) 9.2, Eosinophils (%) (Auto) 5.0H, Basophils (%) (Auto) 0.8 12/13/17 06:35: White Blood Count 8.4, Red Blood Count 3.04L, Hemoglobin 8.8L, Hematocrit 26.6L , Mean Corpuscular Volume 87, Mean Corpuscular Hemoglobin 29.0, Mean Corpuscular Hemoglobin Concent 33.3, Red Cell Distribution Width 13.4, Platelet Count 132L, Mean Platelet Volume 6.2L, Neutrophils (%) (Auto) 60.1, Lymphocytes (%) (Auto) 22.2, Monocytes (%) (Auto) 11.0H, Eosinophils (%) (Auto) 5.8H, Basophils (%) (Auto) 0.9, Sodium Level 142, Potassium Level 4.0, Chloride Level 110H, Carbon Dioxide Level 24, Anion Gap 8, Blood Urea Nitrogen 34H, Creatinine 3.3H, Estimat Glomerular Filtration Rate 19.4, Glucose Level 83, Calcium Level 7.6L, Phosphorus Level 5.1H, Magnesium Level 1.9 Height (Feet): 5 Height (Inches): 6.00 Weight (Pounds): 187 General Appearance: no apparent distress Cardiovascular: normal rate Respiratory/Chest: decreased breath sounds Abdomen: soft, distended Extremities: moderate edema Objective no change Gino Connors MD Dec 13, 2017 10:15
--- NOTE | 2017-12-13 10:16 | General Progress Note ---
Assessment/Plan Problem List: (1) Anemia ICD Codes: D64.9 - Anemia, unspecified SNOMED: 760771128 (2) Diabetes ICD Codes: E11.9 - Type 2 diabetes mellitus without complications SNOMED: 39521906, 64421651 (3) Hypertension ICD Codes: I10 - Essential (primary) hypertension SNOMED: 55388024, 92280497 (4) Diabetic foot ulcer ICD Codes: E11.621 - Type 2 diabetes mellitus with foot ulcer; L97.509 - Non- pressure chronic ulcer of other part of unspecified foot with unspecified severity SNOMED: 683999743, 67201432 Status: unchanged Assessment/Plan s/p polypectomy recurrent bleeding atpolypectomy site requiring multiple transfusions has still low hb despite transfusion canceled dc not safe for dc diabetic nephrotic syndrome edema discussed w renal Subjective ROS Limited/Unobtainable: Yes Allergies: Coded Allergies: No Known Allergies (Unverified , 12/04/17) Subjective edema Objective Last 24 Hour Vital Signs Date Time Temp Pulse Resp B/P (MAP) Pulse Ox O2 Delivery O2 Flow Rate FiO2 12/13/17 09:19 Room Air 12/13/17 08:23 74 141/80 12/13/17 08:18 97.9 74 20 141/80 (100) 97 97.9 12/13/17 07:18 145/79 12/13/17 07:18 145/79 12/13/17 04:00 67 12/13/17 04:00 98.0 67 20 145/79 (101) 100 98.0 12/13/17 00:00 98.0 61 19 141/76 (97) 99 98.0 12/13/17 00:00 59 12/12/17 21:41 148/77 12/12/17 21:40 148/77 12/12/17 21:00 Room Air 12/12/17 20:00 71 12/12/17 20:00 98.3 73 19 148/77 (100) 96 98.3 12/12/17 16:00 69 12/12/17 16:00 97.9 77 20 151/98 (115) 98 97.9 12/12/17 14:28 139/82 12/12/17 14:28 139/82 12/12/17 12:11 98.4 69 20 139/82 (101) 98 98.4 12/12/17 12:00 69 Intake and Output 12/12/17 12/13/17 19:00 07:00 # Voids 2 # Bowel Movements 2 1 Laboratory Tests 12/12/17 14:30: White Blood Count 7.7, Red Blood Count 2.98L, Hemoglobin 8.4L, Hematocrit 26.3L , Mean Corpuscular Volume 88, Mean Corpuscular Hemoglobin 28.3, Mean Corpuscular Hemoglobin Concent 32.0, Red Cell Distribution Width 13.7, Platelet Count 136L, Mean Platelet Volume 6.0L, Neutrophils (%) (Auto) 64.2, Lymphocytes (%) (Auto) 20.8, Monocytes (%) (Auto) 9.2, Eosinophils (%) (Auto) 5.0H, Basophils (%) (Auto) 0.8 12/13/17 06:35: White Blood Count 8.4, Red Blood Count 3.04L, Hemoglobin 8.8L, Hematocrit 26.6L , Mean Corpuscular Volume 87, Mean Corpuscular Hemoglobin 29.0, Mean Corpuscular Hemoglobin Concent 33.3, Red Cell Distribution Width 13.4, Platelet Count 132L, Mean Platelet Volume 6.2L, Neutrophils (%) (Auto) 60.1, Lymphocytes (%) (Auto) 22.2, Monocytes (%) (Auto) 11.0H, Eosinophils (%) (Auto) 5.8H, Basophils (%) (Auto) 0.9, Sodium Level 142, Potassium Level 4.0, Chloride Level 110H, Carbon Dioxide Level 24, Anion Gap 8, Blood Urea Nitrogen 34H, Creatinine 3.3H, Estimat Glomerular Filtration Rate 19.4, Glucose Level 83, Calcium Level 7.6L, Phosphorus Level 5.1H, Magnesium Level 1.9 Height (Feet): 5 Height (Inches): 6.00 Weight (Pounds): 187 Cardiovascular: normal rate Respiratory/Chest: lungs clear Abdomen: soft Romaine Molina MD Dec 13, 2017 10:16
--- NOTE | 2017-12-13 11:18 | General Progress Note ---
Assessment/Plan Assessment/Plan Adjustment d/o anxiety d/o ativan prn ro/st Subjective Neurologic/Psychiatric: Reports: anxiety, depressed, emotional problems Allergies: Coded Allergies: No Known Allergies (Unverified , 12/04/17) Objective Last 24 Hour Vital Signs Date Time Temp Pulse Resp B/P (MAP) Pulse Ox O2 Delivery O2 Flow Rate FiO2 12/13/17 09:19 Room Air 12/13/17 08:23 74 141/80 12/13/17 08:18 97.9 74 20 141/80 (100) 97 97.9 12/13/17 07:18 145/79 12/13/17 07:18 145/79 12/13/17 04:00 67 12/13/17 04:00 98.0 67 20 145/79 (101) 100 98.0 12/13/17 00:00 98.0 61 19 141/76 (97) 99 98.0 12/13/17 00:00 59 12/12/17 21:41 148/77 12/12/17 21:40 148/77 12/12/17 21:00 Room Air 12/12/17 20:00 71 12/12/17 20:00 98.3 73 19 148/77 (100) 96 98.3 12/12/17 16:00 69 12/12/17 16:00 97.9 77 20 151/98 (115) 98 97.9 12/12/17 14:28 139/82 12/12/17 14:28 139/82 12/12/17 12:11 98.4 69 20 139/82 (101) 98 98.4 12/12/17 12:00 69 Intake and Output 12/12/17 12/13/17 19:00 07:00 # Voids 2 # Bowel Movements 2 1 Laboratory Tests 12/12/17 14:30: White Blood Count 7.7, Red Blood Count 2.98L, Hemoglobin 8.4L, Hematocrit 26.3L , Mean Corpuscular Volume 88, Mean Corpuscular Hemoglobin 28.3, Mean Corpuscular Hemoglobin Concent 32.0, Red Cell Distribution Width 13.7, Platelet Count 136L, Mean Platelet Volume 6.0L, Neutrophils (%) (Auto) 64.2, Lymphocytes (%) (Auto) 20.8, Monocytes (%) (Auto) 9.2, Eosinophils (%) (Auto) 5.0H, Basophils (%) (Auto) 0.8 12/13/17 06:35: White Blood Count 8.4, Red Blood Count 3.04L, Hemoglobin 8.8L, Hematocrit 26.6L , Mean Corpuscular Volume 87, Mean Corpuscular Hemoglobin 29.0, Mean Corpuscular Hemoglobin Concent 33.3, Red Cell Distribution Width 13.4, Platelet Count 132L, Mean Platelet Volume 6.2L, Neutrophils (%) (Auto) 60.1, Lymphocytes (%) (Auto) 22.2, Monocytes (%) (Auto) 11.0H, Eosinophils (%) (Auto) 5.8H, Basophils (%) (Auto) 0.9, Sodium Level 142, Potassium Level 4.0, Chloride Level 110H, Carbon Dioxide Level 24, Anion Gap 8, Blood Urea Nitrogen 34H, Creatinine 3.3H, Estimat Glomerular Filtration Rate 19.4, Glucose Level 83, Calcium Level 7.6L, Phosphorus Level 5.1H, Magnesium Level 1.9 Height (Feet): 5 Height (Inches): 6.00 Weight (Pounds): 187 General Appearance: no apparent distress, alert Neurologic: oriented x 3, depressed affect Toney Joseph MD Dec 13, 2017 11:18
--- NOTE | 2017-12-13 11:31 | Pre-Procedure Note/Attestation ---
Pre-Procedure Note/Attestation Complete Prior to Procedure Planned Procedure: not applicable Procedure Narrative: colonoscopy Indications for Procedure Pre-Operative Diagnosis: anemia Attestation I attest that I discussed the nature of the procedure; its benefits; risks and complications; and alternatives (and the risks and benefits of such alternatives ), prior to the procedure, with the patient (or the patient's legal health and safety representative). I attest that, if there was a reasonable possibility of needing a blood transfusion, the patient (or the patient's legal health and safety representative) was given the [facility] standardized written summary, pursuant to the Noel Shiela Blood Safety Act ([place] Health and Safety Code # 1645, as amended). I attest that I re-evaluated the patient just prior to the surgery and that there has been no change in the patient's H&P, except as documented below: Carlos Muro MD Dec 13, 2017 11:31
[2017-12-13] MEDS ORDERED: Lidocaine 1% MPF 10mg/ml 5ml ONE (12:00)
[2017-12-13] MEDS ORDERED: Propofol 200mg/20ml IV ONE (12:00)
[2017-12-13] MEDS ORDERED: NS 500ML IVPB ONE (12:04)
--- NOTE | 2017-12-13 12:15 | Endoscopy Procedure Note ---
Endoscopy Procedure Note General Indication for Procedure: niki Procedures Performed: colonoscopy Operative Findings/Diagnosis: hemorrhoids Specimen: none Pt Tolerated Procedure Well: Yes Estimated Blood Loss: none Anesthesia Anesthesiologist: lorie Anesthesia: MAC Inserted Devices Implant(s) used?: No Quality Quality of Bowel Preparation: Poor Did scope reach the cecum?: No Was there any complications?: No GI Core Measures 50 yrs or older w/o bx or poly: No 10yrs. F/U not recommended: Yes If not recommended, why?: Above average risk 10 yrs. F/U needed: Yes 18 years or older w/prev. colo: Yes <3yrs. since last colonoscopy: Yes Med reason:<3 yrs.: Carlos Muller MD Dec 13, 2017 12:15
--- NOTE | 2017-12-13 12:18 | Anethesia Preoperative Eval ---
Anesthesia Pre-op PMH/ROS General Date of Evaluation: Dec 13, 2017 Time of Evaluation: 11:58 Anesthesiologist: trixie ASA Score: ASA 4 Mallampati Score Class I : Soft palate, uvula, fauces, pillars visible Class II: Soft palate, uvula, fauces visible Class III: Soft palate, base of uvula visible Class IV: Only hard plate visible Mallampati Classification: Class II Surgeon: fanta Diagnosis: anemia Surgical Procedure: colonoscopy Anesthesia History: none Social History: smoking - nonsmoker Family History: no anesthesia problems Allergies: Coded Allergies: No Known Allergies (Unverified , 12/04/17) Medications: see eMAR Past Medical History Cardiovascular: Reports: HTN, arrhythmia - atrial fibrillation Gastrointestinal/Genitourinary: Reports: ESRD Neurologic/Psychiatric: Reports: CVA Endocrine: Reports: DM Anesthesia Pre-op Phys. Exam Physician Exam Last Vital Signs Date Time Temp Pulse Resp B/P (MAP) Pulse Ox O2 Delivery O2 Flow Rate FiO2 12/13/17 09:19 Room Air 12/13/17 08:23 74 141/80 12/13/17 08:18 97.9 20 97 97.9 12/11/17 09:45 3 Constitutional: NAD Neurologic: CN 2-12 intact Cardiovascular: RRR Respiratory: CTA Gastrointestinal: S/NT/ND Airway Exam Mallampati Score: Class II MO: limited Neck: short TMD: 2fb ROM: limited Teeth: missing Anesthesia Pre-op A/P Labs Hematology Test 12/12/17 14:30 12/13/17 06:35 White Blood Count 7.7 K/UL (4.8-10.8) 8.4 K/UL (4.8-10.8) Red Blood Count 2.98 M/UL (4.70-6.10) L 3.04 M/UL (4.70-6.10) L Hemoglobin 8.4 G/DL (14.2-18.0) L 8.8 G/DL (14.2-18.0) L Hematocrit 26.3 % (42.0-52.0) L 26.6 % (42.0-52.0) L Mean Corpuscular Volume 88 FL (80-99) 87 FL (80-99) Mean Corpuscular Hemoglobin 28.3 PG (27.0-31.0) 29.0 PG (27.0-31.0) Mean Corpuscular Hemoglobin Concent 32.0 G/DL (32.0-36.0) 33.3 G/DL (32.0-36.0) Red Cell Distribution Width 13.7 % (11.6-14.8) 13.4 % (11.6-14.8) Platelet Count 136 K/UL (150-450) L 132 K/UL (150-450) L Mean Platelet Volume 6.0 FL (6.5-10.1) L 6.2 FL (6.5-10.1) L Neutrophils (%) (Auto) 64.2 % (45.0-75.0) 60.1 % (45.0-75.0) Lymphocytes (%) (Auto) 20.8 % (20.0-45.0) 22.2 % (20.0-45.0) Monocytes (%) (Auto) 9.2 % (1.0-10.0) 11.0 % (1.0-10.0) H Eosinophils (%) (Auto) 5.0 % (0.0-3.0) H 5.8 % (0.0-3.0) H Basophils (%) (Auto) 0.8 % (0.0-2.0) 0.9 % (0.0-2.0) Chemistry Test 12/13/17 06:35 Sodium Level 142 MMOL/L (136-145) Potassium Level 4.0 MMOL/L (3.5-5.1) Chloride Level 110 MMOL/L (98-107) H Carbon Dioxide Level 24 MMOL/L (21-32) Anion Gap 8 mmol/L (5-15) Blood Urea Nitrogen 34 mg/dL (7-18) H Creatinine 3.3 MG/DL (0.55-1.30) H Estimat Glomerular Filtration Rate 19.4 mL/min (>60) Glucose Level 83 MG/DL (74-106) Calcium Level 7.6 MG/DL (8.5-10.1) L Phosphorus Level 5.1 MG/DL (2.5-4.9) H Magnesium Level 1.9 MG/DL (1.8-2.4) Risk Assessment & Plan Assessment: [email or web address] Plan: mac Status Change Before Surgery: No Pre-Antibiotics Drug: Zulma Pool MD Dec 13, 2017 12:18
[2017-12-13] MEDS ORDERED: Midazolam 2mg/2ml Inj IVP PRN (12:30)
[2017-12-13] MEDS ORDERED: DiphenhydrAMINE 50mg/ml Inj IVP PRN (12:30)
[2017-12-13] MEDS ORDERED: fentaNYL 100 mcg/2 mL IV PRN (12:30)
[2017-12-13] MEDS ORDERED: Atropine Inj 1mg/10ml Syr IV PRN (12:30)
--- NOTE | 2017-12-13 12:30 | Anethesia Preoperative Eval ---
Anesthesia Pre-op PMH/ROS General Mallampati Score Class I : Soft palate, uvula, fauces, pillars visible Class II: Soft palate, uvula, fauces visible Class III: Soft palate, base of uvula visible Class IV: Only hard plate visible Mallampati Classification: Class II Allergies: Coded Allergies: No Known Allergies (Unverified , 12/04/17) Anesthesia Pre-op Phys. Exam Physician Exam Last Vital Signs Date Time Temp Pulse Resp B/P (MAP) Pulse Ox O2 Delivery O2 Flow Rate FiO2 12/13/17 12:19 97.7 64 20 139/87 (104) 96 97.7 12/13/17 09:19 Room Air 12/11/17 09:45 3 Airway Exam Mallampati Score: Class II Anesthesia Pre-op A/P Labs Hematology Test 12/12/17 14:30 12/13/17 06:35 White Blood Count 7.7 K/UL (4.8-10.8) 8.4 K/UL (4.8-10.8) Red Blood Count 2.98 M/UL (4.70-6.10) L 3.04 M/UL (4.70-6.10) L Hemoglobin 8.4 G/DL (14.2-18.0) L 8.8 G/DL (14.2-18.0) L Hematocrit 26.3 % (42.0-52.0) L 26.6 % (42.0-52.0) L Mean Corpuscular Volume 88 FL (80-99) 87 FL (80-99) Mean Corpuscular Hemoglobin 28.3 PG (27.0-31.0) 29.0 PG (27.0-31.0) Mean Corpuscular Hemoglobin Concent 32.0 G/DL (32.0-36.0) 33.3 G/DL (32.0-36.0) Red Cell Distribution Width 13.7 % (11.6-14.8) 13.4 % (11.6-14.8) Platelet Count 136 K/UL (150-450) L 132 K/UL (150-450) L Mean Platelet Volume 6.0 FL (6.5-10.1) L 6.2 FL (6.5-10.1) L Neutrophils (%) (Auto) 64.2 % (45.0-75.0) 60.1 % (45.0-75.0) Lymphocytes (%) (Auto) 20.8 % (20.0-45.0) 22.2 % (20.0-45.0) Monocytes (%) (Auto) 9.2 % (1.0-10.0) 11.0 % (1.0-10.0) H Eosinophils (%) (Auto) 5.0 % (0.0-3.0) H 5.8 % (0.0-3.0) H Basophils (%) (Auto) 0.8 % (0.0-2.0) 0.9 % (0.0-2.0) Chemistry Test 12/13/17 06:35 Sodium Level 142 MMOL/L (136-145) Potassium Level 4.0 MMOL/L (3.5-5.1) Chloride Level 110 MMOL/L (98-107) H Carbon Dioxide Level 24 MMOL/L (21-32) Anion Gap 8 mmol/L (5-15) Blood Urea Nitrogen 34 mg/dL (7-18) H Creatinine 3.3 MG/DL (0.55-1.30) H Estimat Glomerular Filtration Rate 19.4 mL/min (>60) Glucose Level 83 MG/DL (74-106) Calcium Level 7.6 MG/DL (8.5-10.1) L Phosphorus Level 5.1 MG/DL (2.5-4.9) H Magnesium Level 1.9 MG/DL (1.8-2.4) Zulma Pereyra MD Dec 13, 2017 12:30
--- NOTE | 2017-12-13 13:08 | Immediate Post-Op Evaluation ---
Immediate Post-Op Evalulation Immediate Post-Op Evalulation Procedure: Colonoscopy Date of Evaluation: Dec 13, 2017 Time of Evaluation: 12:32 IV Fluids: 200ml 0.9ns Blood Products: none Estimated Blood Loss: negligible Blood Pressure Systolic: 141 Blood Pressure Diastolic: 87 Pulse Rate: 60 Respiratory Rate: 18 O2 Sat by Pulse Oximetry: 100 Temperature (Fahrenheit): 98.8 Pain Score (1-10): 0 Nausea: No Vomiting: No Complications none Patient Status: awake, reacts, patent Hydration Status: adequate Drug: Zulma Pool MD Dec 13, 2017 13:08
--- NOTE | 2017-12-13 13:10 | 48 Hour Post Anesthesia Eval ---
Post Anesthesia Evaluation Procedure: Colonoscopy Date of Evaluation: Dec 13, 2017 Time of Evaluation: 12:34 Blood Pressure Systolic: 161 0: 91 Pulse Rate: 61 Respiratory Rate: 18 Temperature (Fahrenheit): 98.8 O2 Sat by Pulse Oximetry: 100 Airway: patent Nausea: No Vomiting: No Pain Intensity: 0 Hydration Status: adequate Cardiopulmonary Status: stable Mental Status/LOC: patient returned to baseline Post-Anesthesia Complications: none Follow-up care needed: N/A Zulma Pereyra MD Dec 13, 2017 13:10
--- NOTE | 2017-12-13 13:15 | Procedure Note ---
DATE OF PROCEDURE: 12/13/2017 SURGEON: Carlos Muro M.D. ANESTHESIOLOGIST: Dr. Mckenna. PROCEDURE: Colonoscopy. ANESTHESIA: Per Dr. Mckenna. INSTRUMENT: Olympus adult flexible colonoscope. INDICATION: GI bleeding. The procedure, risks, benefits, and possible consequences, including hemorrhage, aspiration, perforation and infection, and alternative treatments, were explained to the patient/legal guardian by Dr. Carlos Muro and the patient/legal guardian understood and accepted these risks. DESCRIPTION OF PROCEDURE: After informed consent was obtained and the patient was adequately sedated, first rectal exam was performed which was normal. Then, the scope was advanced from the rectum into the ascending colon. Given poor prep, we could not advance the scope beyond this point. The purpose of this procedure was to find the source of bleeding. The patient had 2 colonoscopies already in this admission and had multiple polyps removed. Last colonoscopy 2 days ago showed multiple bleeding from the polypectomy site which required hemostasis. At this time, there was not even a drop of blood in the colon. No active bleeding from the sites of polypectomy. Actually polypectomy sites looks clean without any obvious active bleeding at this time, so the scope was gradually retrieved and procedure was terminated. Carlos Muro M.D. DR: Patrice JOB#: [id number] CC:
--- NOTE | 2017-12-13 13:25 | General Surgery Progress Note ---
General Surgery-Progress Note Subjective Additional Comments no acute events. endoscopy today. wound stable. Objective Last 24 Hour Vital Signs Date Time Temp Pulse Resp B/P (MAP) Pulse Ox O2 Delivery O2 Flow Rate FiO2 12/13/17 13:10 209.8 61 18 100 12/13/17 13:08 209.8 60 18 100 12/13/17 12:30 61 17 161/91 100 Simple Mask 6 12/13/17 12:25 61 18 147/87 100 Simple Mask 6 12/13/17 12:20 98.8 60 18 141/87 100 Simple Mask 6 98.8 12/13/17 12:19 97.7 64 20 139/87 (104) 96 97.7 12/13/17 09:19 Room Air 12/13/17 08:23 74 141/80 12/13/17 08:18 97.9 74 20 141/80 (100) 97 97.9 12/13/17 07:18 145/79 12/13/17 07:18 145/79 12/13/17 04:00 67 12/13/17 04:00 98.0 67 20 145/79 (101) 100 98.0 12/13/17 00:00 98.0 61 19 141/76 (97) 99 98.0 12/13/17 00:00 59 12/12/17 21:41 148/77 12/12/17 21:40 148/77 12/12/17 21:00 Room Air 12/12/17 20:00 71 12/12/17 20:00 98.3 73 19 148/77 (100) 96 98.3 12/12/17 16:00 69 12/12/17 16:00 97.9 77 20 151/98 (115) 98 97.9 12/12/17 14:28 139/82 12/12/17 14:28 139/82 I&O Intake and Output 12/12/17 12/13/17 19:00 07:00 # Voids 2 # Bowel Movements 2 1 Dressing: saturated Wound: clean Drains: none Cardiovascular: RSR Respiratory: clear Abdomen: soft, flat, non-tender, present bowel sounds Extremities: no cyanosis Laboratory Tests Test 12/12/17 14:30 12/13/17 06:35 White Blood Count 7.7 K/UL (4.8-10.8) 8.4 K/UL (4.8-10.8) Red Blood Count 2.98 M/UL (4.70-6.10) L 3.04 M/UL (4.70-6.10) L Hemoglobin 8.4 G/DL (14.2-18.0) L 8.8 G/DL (14.2-18.0) L Hematocrit 26.3 % (42.0-52.0) L 26.6 % (42.0-52.0) L Mean Corpuscular Volume 88 FL (80-99) 87 FL (80-99) Mean Corpuscular Hemoglobin 28.3 PG (27.0-31.0) 29.0 PG (27.0-31.0) Mean Corpuscular Hemoglobin Concent 32.0 G/DL (32.0-36.0) 33.3 G/DL (32.0-36.0) Red Cell Distribution Width 13.7 % (11.6-14.8) 13.4 % (11.6-14.8) Platelet Count 136 K/UL (150-450) L 132 K/UL (150-450) L Mean Platelet Volume 6.0 FL (6.5-10.1) L 6.2 FL (6.5-10.1) L Neutrophils (%) (Auto) 64.2 % (45.0-75.0) 60.1 % (45.0-75.0) Lymphocytes (%) (Auto) 20.8 % (20.0-45.0) 22.2 % (20.0-45.0) Monocytes (%) (Auto) 9.2 % (1.0-10.0) 11.0 % (1.0-10.0) H Eosinophils (%) (Auto) 5.0 % (0.0-3.0) H 5.8 % (0.0-3.0) H Basophils (%) (Auto) 0.8 % (0.0-2.0) 0.9 % (0.0-2.0) Sodium Level 142 MMOL/L (136-145) Potassium Level 4.0 MMOL/L (3.5-5.1) Chloride Level 110 MMOL/L (98-107) H Carbon Dioxide Level 24 MMOL/L (21-32) Anion Gap 8 mmol/L (5-15) Blood Urea Nitrogen 34 mg/dL (7-18) H Creatinine 3.3 MG/DL (0.55-1.30) H Estimat Glomerular Filtration Rate 19.4 mL/min (>60) Glucose Level 83 MG/DL (74-106) Calcium Level 7.6 MG/DL (8.5-10.1) L Phosphorus Level 5.1 MG/DL (2.5-4.9) H Magnesium Level 1.9 MG/DL (1.8-2.4) Plan Problems: (1) Anemia (2) Diabetes (3) Ulcer of right heel and midfoot with fat layer exposed Assessment & Plan: left foot amputation, right foot amputation, right foot with large heel ulcer non healing possibly down to bone -MRI right foot -- Extensive diffuse soft tissue edema, nonspecific in appearance but likely on the basis of cellulitis given stated clinical history Possible small 16 mm abscess in the medial ankle subcutaneous fat No osseous signal abnormality to suggest osteomyelitis on exam no abscess noted. no drainable collection seen. -wet to dry dressing to help with debridement of fibrinous debris. -keep off wound -heel protectors. Angel Browning Dec 13, 2017 13:25
[2017-12-13] MEDS ORDERED: Lidocaine 1% Plain 30 ml INJ PRN (19:00)
[2017-12-13] MEDS ORDERED: Heparin 2000 units/Ns 1000ml INJ PRN (19:00)
[2017-12-13] MEDS: Iron Sucrose 100 MG in NS 55 ML IV SCH (21:00)
[2017-12-13] MEDS: Tamsulosin 0.4mg cap ORAL SCH (21:12)
[2017-12-13] MEDS: Atorvastatin 20mg tab ORAL SCH (21:12)
[2017-12-13] MEDS: Dyna-Hex 2% Top Sol 2oz TOPIC SCH (21:12)
[2017-12-14] VITALS: BP 159/94
[2017-12-14 04:00] VITALS: BP 160/89
[2017-12-14] MEDS: HydrALAZINE 50mg tab ORAL SCH ×3 (06:17→21:18)
[2017-12-14] MEDS: NovoLOG Insulin Flexpen SUBQ SCH ×4 (06:22→21:00)
[2017-12-14 06:39] LABS: BASOPHILS % (AUTO) 1.4 % (0.0-2.0); EOSINOPHILS % (AUTO) 8.5 % (0.0-3.0); HEMATOCRIT 28.9 % (42.0-52.0); HEMOGLOBIN 9.6 G/DL (14.2-18.0); LYMPHOCYTES % (AUTO) 19.7 % (20.0-45.0); MEAN CORPUSCULAR VOLUME 87 FL (80-99); MONOCYTES % (AUTO) 10.1 % (1.0-10.0); NEUTROPHILS % (AUTO) 60.2 % (45.0-75.0); PLATELET COUNT 159 K/UL (150-450); RED BLOOD COUNT 3.31 M/UL (4.70-6.10); RED CELL DISTRIBUTION WIDTH 13.5 % (11.6-14.8); WHITE BLOOD COUNT 8.2 K/UL (4.8-10.8)
[2017-12-14 06:58] LABS: ALANINE AMINOTRANSFERASE 36 U/L (12-78); ALBUMIN 1.3 G/DL (3.4-5.0); ALBUMIN/GLOBULIN RATIO 0.4 (1.0-2.7); ALKALINE PHOSPHATASE 84 U/L (46-116); ANION GAP 7 mmol/L (5-15); ASPARTATE AMINO TRANSFERASE 29 U/L (15-37); BILIRUBIN,TOTAL 0.2 MG/DL (0.2-1.0); BLOOD UREA NITROGEN 34 mg/dL (7-18); CALCIUM 7.6 MG/DL (8.5-10.1); CARBON DIOXIDE 23 MMOL/L (21-32); CHLORIDE 111 MMOL/L (98-107); CREATINE KINASE 66 U/L (26-308); CREATININE 3.4 MG/DL (0.55-1.30); GAMMA GLUTAMYL TRANSPEPTIDASE 40 U/L (5-85); PHOSPHORUS 5.3 MG/DL (2.5-4.9); SODIUM 141 MMOL/L (136-145)
[2017-12-14 08:00] VITALS: BP 171/97
--- NOTE | 2017-12-14 09:00 | General Surgery Progress Note ---
General Surgery-Progress Note Subjective Additional Comments colonoscopy yesterday. hemorrhoids noted. labs reviewed. stable Objective Last 24 Hour Vital Signs Date Time Temp Pulse Resp B/P (MAP) Pulse Ox O2 Delivery O2 Flow Rate FiO2 12/14/17 08:38 77 171/97 12/14/17 06:17 134/72 12/14/17 06:17 134/72 12/14/17 04:00 97.5 64 20 160/89 (112) 99 97.5 12/14/17 04:00 63 12/14/17 00:00 97.7 67 20 159/94 (115) 98 97.7 12/14/17 00:00 63 12/13/17 22:25 159/83 12/13/17 22:24 159/83 12/13/17 21:00 Room Air 12/13/17 20:00 97.2 66 18 154/85 (108) 98 97.2 12/13/17 20:00 67 12/13/17 16:00 97.5 94 20 151/63 (92) 93 97.5 12/13/17 16:00 67 12/13/17 13:56 139/85 12/13/17 13:56 139/85 12/13/17 13:10 209.8 61 18 100 12/13/17 13:08 209.8 60 18 100 12/13/17 12:40 98.3 67 15 162/89 100 Room Air 98.3 12/13/17 12:30 61 17 161/91 100 Simple Mask 6 12/13/17 12:25 61 18 147/87 100 Simple Mask 6 12/13/17 12:20 98.8 60 18 141/87 100 Simple Mask 6 98.8 12/13/17 12:19 97.7 64 20 139/87 (104) 96 97.7 12/13/17 12:00 67 12/13/17 09:19 Room Air I&O Intake and Output 12/13/17 12/14/17 19:00 07:00 Intake Total 350 ml Output Total 600 ml 25 ml Balance -250 ml -25 ml IV Total 350 ml Output Urine Total 600 ml 25 ml # Voids 4 3 # Bowel Movements 3 Dressing: saturated Wound: clean Drains: none Cardiovascular: RSR Respiratory: clear Abdomen: soft, non-tender, present bowel sounds Extremities: no cyanosis Laboratory Tests Test 12/14/17 05:55 White Blood Count 8.2 K/UL (4.8-10.8) Red Blood Count 3.31 M/UL (4.70-6.10) L Hemoglobin 9.6 G/DL (14.2-18.0) L Hematocrit 28.9 % (42.0-52.0) L Mean Corpuscular Volume 87 FL (80-99) Mean Corpuscular Hemoglobin 28.9 PG (27.0-31.0) Mean Corpuscular Hemoglobin Concent 33.1 G/DL (32.0-36.0) Red Cell Distribution Width 13.5 % (11.6-14.8) Platelet Count 159 K/UL (150-450) Mean Platelet Volume 6.3 FL (6.5-10.1) L Neutrophils (%) (Auto) 60.2 % (45.0-75.0) Lymphocytes (%) (Auto) 19.7 % (20.0-45.0) L Monocytes (%) (Auto) 10.1 % (1.0-10.0) H Eosinophils (%) (Auto) 8.5 % (0.0-3.0) H Basophils (%) (Auto) 1.4 % (0.0-2.0) Sodium Level 141 MMOL/L (136-145) Potassium Level 4.0 MMOL/L (3.5-5.1) Chloride Level 111 MMOL/L (98-107) H Carbon Dioxide Level 23 MMOL/L (21-32) Anion Gap 7 mmol/L (5-15) Blood Urea Nitrogen 34 mg/dL (7-18) H Creatinine 3.4 MG/DL (0.55-1.30) H Estimat Glomerular Filtration Rate 18.8 mL/min (>60) Glucose Level 87 MG/DL (74-106) Uric Acid 7.5 MG/DL (2.6-7.2) H Calcium Level 7.6 MG/DL (8.5-10.1) L Phosphorus Level 5.3 MG/DL (2.5-4.9) H Magnesium Level 1.9 MG/DL (1.8-2.4) Total Bilirubin 0.2 MG/DL (0.2-1.0) Gamma Glutamyl Transpeptidase 40 U/L (5-85) Aspartate Amino Transf (AST/SGOT) 29 U/L (15-37) Alanine Aminotransferase (ALT/SGPT) 36 U/L (12-78) Alkaline Phosphatase 84 U/L (46-116) Total Creatine Kinase 66 U/L (26-308) Total Protein 4.9 G/DL (6.4-8.2) L Albumin 1.3 G/DL (3.4-5.0) L Globulin 3.6 g/dL Albumin/Globulin Ratio 0.4 (1.0-2.7) L Plan Problems: (1) Anemia (2) Diabetes (3) Ulcer of right heel and midfoot with fat layer exposed Assessment & Plan: left foot amputation, right foot amputation, right foot with large heel ulcer non healing possibly down to bone -MRI right foot -- Extensive diffuse soft tissue edema, nonspecific in appearance but likely on the basis of cellulitis given stated clinical history Possible small 16 mm abscess in the medial ankle subcutaneous fat No osseous signal abnormality to suggest osteomyelitis on exam no abscess noted. no drainable collection seen. -wet to dry dressing to help with debridement of fibrinous debris. -keep off wound -heel protectors. -conservative management of hemorrhoids. if continue to bleed can consider surgical intervention Angel Browning Dec 14, 2017 09:00
--- NOTE | 2017-12-14 09:11 | Nephrology Progress Note ---
Assessment/Plan Problem List: (1) Renal failure (ARF), acute on chronic Assessment: sever hypoalbuminemia (2) Anemia in chronic kidney disease (CKD) (3) Acute post-hemorrhagic anemia (4) Hypertensive urgency (5) Diabetic foot ulcer (6) Rectal bleed Assessment: over night, post polipectopy 12/08 Assessment no further bleed- Renal failure- likely chronic due to diabetic nephropathy Anemia , had rectal bleed post polypectomy Proteinuria / Hypoalbuminemia HTN OOC Diabetic foot ULCER Left ventricular ejection fraction estimated to be 55-60 %. Plan transfused- [place] due to renal failure and hypoalbuminemia- one dose Zaroxyllin BP management- meds rearranged ,,,BP OK DC Plavix and ASA for next 2 weeks per GI Wound care Avoid nephrotoxics Monitor renal parameters per orders Left ventricular ejection fraction estimated to be 55-60 %. kidney NIGEL Increased renal echogenicity bilaterally. Correlate for medical renal disease. IV Iron Subjective ROS Limited/Unobtainable: No Constitutional: Reports: malaise Subjective rectal bleed Objective Objective Last 24 Hour Vital Signs Date Time Temp Pulse Resp B/P (MAP) Pulse Ox O2 Delivery O2 Flow Rate FiO2 12/14/17 08:38 77 171/97 12/14/17 06:17 134/72 12/14/17 06:17 134/72 12/14/17 04:00 97.5 64 20 160/89 (112) 99 97.5 12/14/17 04:00 63 12/14/17 00:00 97.7 67 20 159/94 (115) 98 97.7 12/14/17 00:00 63 12/13/17 22:25 159/83 12/13/17 22:24 159/83 12/13/17 21:00 Room Air 12/13/17 20:00 97.2 66 18 154/85 (108) 98 97.2 12/13/17 20:00 67 12/13/17 16:00 97.5 94 20 151/63 (92) 93 97.5 12/13/17 16:00 67 12/13/17 13:56 139/85 12/13/17 13:56 139/85 12/13/17 13:10 209.8 61 18 100 12/13/17 13:08 209.8 60 18 100 12/13/17 12:40 98.3 67 15 162/89 100 Room Air 98.3 12/13/17 12:30 61 17 161/91 100 Simple Mask 6 12/13/17 12:25 61 18 147/87 100 Simple Mask 6 12/13/17 12:20 98.8 60 18 141/87 100 Simple Mask 6 98.8 12/13/17 12:19 97.7 64 20 139/87 (104) 96 97.7 12/13/17 12:00 67 12/13/17 09:19 Room Air Intake and Output 12/13/17 12/14/17 19:00 07:00 Intake Total 350 ml Output Total 600 ml 25 ml Balance -250 ml -25 ml IV Total 350 ml Output Urine Total 600 ml 25 ml # Voids 4 3 # Bowel Movements 3 Current Medications Medications (Trade) Dose Ordered Sig/Wilbert Route PRN Reason Start Time Stop Time Status Last Admin Dose Admin Amlodipine Besylate (Norvasc) 10 mg DAILY ORAL 12/09/17 09:00 01/08/18 08:59 12/14/17 08:38 Atorvastatin Calcium (Lipitor) 40 mg BEDTIME ORAL 12/07/17 21:00 01/06/18 20:59 12/13/17 21:12 Chlorhexidine Gluconate (Kavita-Hex 2%) 1 applic DAILY@2000 TOPIC 12/13/17 20:00 01/12/18 19:59 12/13/17 21:12 Clonidine HCl (Catapres Tab) 0.1 mg Q8HR ORAL 12/09/17 12:30 01/08/18 12:29 12/14/17 06:17 Dextrose (Dextrose 50%) 25 ml STAT PRN IV Hypoglycemia 12/06/17 22:30 01/05/18 22:29 Dextrose (Dextrose 50%) 50 ml STAT PRN IV Hypoglycemia 12/06/17 22:30 01/05/18 22:29 Furosemide (Lasix) 20 mg DAILY ORAL 12/13/17 09:00 01/12/18 08:59 12/14/17 08:38 Heparin Sodium/ Sodium Chloride (Heparin 2000 units/Ns 1000ml premix) 2,000 unit ONCE PRN INJ for picc line placement 12/13/17 19:00 12/15/17 18:59 Hydralazine HCl (Apresoline) 50 mg Q8HR ORAL 12/09/17 12:30 01/07/18 12:29 12/14/17 06:17 Insulin Aspart (NovoLOG) BEFORE MEALS AND HS SUBQ 12/07/17 06:30 01/06/18 06:29 12/13/17 21:16 Iron Sucrose 100 mg/Sodium Chloride 60 ml @ 240 mls/hr BEDTIME IV 12/10/17 21:00 12/14/17 21:14 12/10/17 21:10 Lidocaine HCl (Xylocaine 1% 30ml) 30 ml ONCE PRN INJ for picc line placement 12/13/17 19:00 12/15/17 18:59 Minoxidil (Loniten) 2.5 mg Q4H PRN ORAL BP over 165 syst 12/09/17 11:30 01/08/18 11:29 12/09/17 17:46 Pantoprazole (Protonix) 40 mg DAILY ORAL 12/08/17 10:30 01/07/18 10:29 12/14/17 08:39 Tamsulosin HCl (Flomax) 0.4 mg BEDTIME ORAL 12/08/17 21:00 01/07/18 20:59 12/13/17 21:12 Laboratory Tests 12/14/17 05:55: White Blood Count 8.2, Red Blood Count 3.31L, Hemoglobin 9.6L, Hematocrit 28.9L , Mean Corpuscular Volume 87, Mean Corpuscular Hemoglobin 28.9, Mean Corpuscular Hemoglobin Concent 33.1, Red Cell Distribution Width 13.5, Platelet Count 159, Mean Platelet Volume 6.3L, Neutrophils (%) (Auto) 60.2, Lymphocytes ( %) (Auto) 19.7L, Monocytes (%) (Auto) 10.1H, Eosinophils (%) (Auto) 8.5H, Basophils (%) (Auto) 1.4, Sodium Level 141, Potassium Level 4.0, Chloride Level 111H, Carbon Dioxide Level 23, Anion Gap 7, Blood Urea Nitrogen 34H, Creatinine 3.4H, Estimat Glomerular Filtration Rate 18.8, Glucose Level 87, Uric Acid 7.5H , Calcium Level 7.6L, Phosphorus Level 5.3H, Magnesium Level 1.9, Total Bilirubin 0.2, Gamma Glutamyl Transpeptidase 40, Aspartate Amino Transf (AST/ SGOT) 29, Alanine Aminotransferase (ALT/SGPT) 36, Alkaline Phosphatase 84, Total Creatine Kinase 66, Total Protein 4.9L, Albumin 1.3L, Globulin 3.6, Albumin/Globulin Ratio 0.4L Height (Feet): 5 Height (Inches): 6.00 Weight (Pounds): 187 General Appearance: no apparent distress Cardiovascular: regular rhythm Respiratory/Chest: decreased breath sounds Abdomen: soft Genitourinary/Rectal: other Objective no change Gino Connors MD Dec 14, 2017 09:11
[2017-12-14] MEDS ORDERED: Metoprolol Tartrate 12.5mg TAB ORAL SCH (09:30)
--- NOTE | 2017-12-14 11:06 | Diagnostic Imaging Report ---
Indications: Needs long-term IV access Technique: Ultrasound confirms patent compressible right basilic vein. Total sterile technique, including sterile probe cover and sterile gel, hat, mask, sterile gown, large sterile drape, and preparation with 2% chlorhexidine utilized. Local anesthesia with 1% lidocaine. Under real-time ultrasound guidance, puncture basilic vein using 21-gauge needle, documented and archived, passage 0.018 guidewire under direct fluoroscopy, which was used to determine appropriate catheter length, exchange for 5 Yoruba peel-away sheath. 5 Yoruba Bard dual-lumen power PICC cut to 44 cm. It was inserted through the peel-away sheath. Peel-away sheath and guidewire removed. Catheter fixed to the skin. Both catheter ports aspirated and flushed. Patient tolerated procedure well, without immediate complication. Digital radiograph documents satisfactory catheter tip position, at the cavoatrial junction. Total fluoroscopy time 0.3 minutes. Total dose area product 15 dGycm2 Total number of images: 1 Impression: Successful placement of right arm PICC under sonographic and fluoroscopic guidance, as described above.
--- NOTE | 2017-12-14 11:20 | Diagnostic Imaging Report ---
Indications: Bilateral testicular swelling Technique: Grayscale and duplex images of the scrotum Comparison: none Findings:The right testicle measures 4.6cm in length. It demonstrates normal echogenicity. Normal Doppler flow. Normal epididymis. There is a moderate size hydrocele The left testicle measures 4.2 cm in length. It demonstrates normal echogenicity and normal Doppler flow. Normal epididymis. There is a moderate size hydrocele There appears to be mild thickening/edema of the scrotal wall bilaterally Impression: No testicular abnormality demonstrated Moderate bilateral hydroceles Mild thickening/edema of the scrotal wall
[2017-12-14 12:00] VITALS: BP 152/79
--- NOTE | 2017-12-14 12:15 | General Progress Note ---
Assessment/Plan Status: unchanged Assessment/Plan 1. Anemia due to Gi bleed from polypectomy site --> Continue to closely monitor for improvement. --> Anemia panel has been reviewed, will trend cbc --> Hgb goal >7 --> 12/10 s/p 1 unit, 12/11 s/p 1 unit, 12/12 1 unit, 12/13 1 unit --> no asa or palcix x 2 weeks 2. Anemia due to underlying kidney disease. --> Closely monitor for improvement. 3. Mild protein-caloric malnutrition. 4. Leukocytosis potentially secondary to reactive process. --> Completed abx --> WBC normalized 5. Diabetes mellitus. A1c goal less than 7. 6. Constipation. Endoscopy as per gastrointestinal service. The time the note was entered does not necessarily correspond to the time the patient was seen. Subjective Date patient seen: Dec 14, 2017 ROS Limited/Unobtainable: Yes Hematologic/Lymphatic: Reports: anemia Allergies: Coded Allergies: No Known Allergies (Unverified , 12/04/17) All Systems: reviewed and negative except above Subjective Pt awake and alert. Colonoscopy yesterday. S/P 1 unit PRBC, tolerated well. Hgb improved to 9.6 Objective Last 24 Hour Vital Signs Date Time Temp Pulse Resp B/P (MAP) Pulse Ox O2 Delivery O2 Flow Rate FiO2 12/14/17 12:00 97.6 62 20 152/79 (103) 98 97.6 12/14/17 09:49 62 148/81 12/14/17 09:00 Room Air 12/14/17 08:38 77 171/97 12/14/17 08:00 75 12/14/17 08:00 97.9 77 20 171/97 (121) 98 97.9 12/14/17 06:17 134/72 12/14/17 06:17 134/72 12/14/17 04:00 97.5 64 20 160/89 (112) 99 97.5 12/14/17 04:00 63 12/14/17 00:00 97.7 67 20 159/94 (115) 98 97.7 12/14/17 00:00 63 12/13/17 22:25 159/83 12/13/17 22:24 159/83 12/13/17 21:00 Room Air 12/13/17 20:00 97.2 66 18 154/85 (108) 98 97.2 12/13/17 20:00 67 12/13/17 16:00 97.5 94 20 151/63 (92) 93 97.5 12/13/17 16:00 67 12/13/17 13:56 139/85 12/13/17 13:56 139/85 12/13/17 13:10 209.8 61 18 100 12/13/17 13:08 209.8 60 18 100 12/13/17 12:40 98.3 67 15 162/89 100 Room Air 98.3 12/13/17 12:30 61 17 161/91 100 Simple Mask 6 12/13/17 12:25 61 18 147/87 100 Simple Mask 6 12/13/17 12:20 98.8 60 18 141/87 100 Simple Mask 6 98.8 12/13/17 12:19 97.7 64 20 139/87 (104) 96 97.7 Intake and Output 12/13/17 12/14/17 19:00 07:00 Intake Total 350 ml Output Total 600 ml 25 ml Balance -250 ml -25 ml IV Total 350 ml Output Urine Total 600 ml 25 ml # Voids 4 3 # Bowel Movements 3 Laboratory Tests 12/14/17 05:55: White Blood Count 8.2, Red Blood Count 3.31L, Hemoglobin 9.6L, Hematocrit 28.9L , Mean Corpuscular Volume 87, Mean Corpuscular Hemoglobin 28.9, Mean Corpuscular Hemoglobin Concent 33.1, Red Cell Distribution Width 13.5, Platelet Count 159, Mean Platelet Volume 6.3L, Neutrophils (%) (Auto) 60.2, Lymphocytes ( %) (Auto) 19.7L, Monocytes (%) (Auto) 10.1H, Eosinophils (%) (Auto) 8.5H, Basophils (%) (Auto) 1.4, Sodium Level 141, Potassium Level 4.0, Chloride Level 111H, Carbon Dioxide Level 23, Anion Gap 7, Blood Urea Nitrogen 34H, Creatinine 3.4H, Estimat Glomerular Filtration Rate 18.8, Glucose Level 87, Uric Acid 7.5H , Calcium Level 7.6L, Phosphorus Level 5.3H, Magnesium Level 1.9, Total Bilirubin 0.2, Gamma Glutamyl Transpeptidase 40, Aspartate Amino Transf (AST/ SGOT) 29, Alanine Aminotransferase (ALT/SGPT) 36, Alkaline Phosphatase 84, Total Creatine Kinase 66, Total Protein 4.9L, Albumin 1.3L, Globulin 3.6, Albumin/Globulin Ratio 0.4L Height (Feet): 5 Height (Inches): 6.00 Weight (Pounds): 187 General Appearance: no apparent distress, alert EENT: PERRL/EOMI Neck: normal alignment Cardiovascular: irregularly irregular Respiratory/Chest: no respiratory distress Abdomen: soft Ronnie Bray MD Dec 14, 2017 12:15
--- NOTE | 2017-12-14 13:27 | General Progress Note ---
Assessment/Plan Status: stable Assessment/Plan Adjustment d/o anxiety d/o ativan prn ro/st Subjective Date patient seen: Dec 14, 2017 Neurologic/Psychiatric: Reports: anxiety, depressed, emotional problems Allergies: Coded Allergies: No Known Allergies (Unverified , 12/04/17) Objective Last 24 Hour Vital Signs Date Time Temp Pulse Resp B/P (MAP) Pulse Ox O2 Delivery O2 Flow Rate FiO2 12/14/17 12:00 66 12/14/17 12:00 97.6 62 20 152/79 (103) 98 97.6 12/14/17 09:49 62 148/81 12/14/17 09:00 Room Air 12/14/17 08:38 77 171/97 12/14/17 08:00 75 12/14/17 08:00 97.9 77 20 171/97 (121) 98 97.9 12/14/17 06:17 134/72 12/14/17 06:17 134/72 12/14/17 04:00 97.5 64 20 160/89 (112) 99 97.5 12/14/17 04:00 63 12/14/17 00:00 97.7 67 20 159/94 (115) 98 97.7 12/14/17 00:00 63 12/13/17 22:25 159/83 12/13/17 22:24 159/83 12/13/17 21:00 Room Air 12/13/17 20:00 97.2 66 18 154/85 (108) 98 97.2 12/13/17 20:00 67 12/13/17 16:00 97.5 94 20 151/63 (92) 93 97.5 12/13/17 16:00 67 12/13/17 13:56 139/85 12/13/17 13:56 139/85 Intake and Output 12/13/17 12/14/17 19:00 07:00 Intake Total 350 ml Output Total 600 ml 25 ml Balance -250 ml -25 ml IV Total 350 ml Output Urine Total 600 ml 25 ml # Voids 4 3 # Bowel Movements 3 Laboratory Tests 12/14/17 05:55: White Blood Count 8.2, Red Blood Count 3.31L, Hemoglobin 9.6L, Hematocrit 28.9L , Mean Corpuscular Volume 87, Mean Corpuscular Hemoglobin 28.9, Mean Corpuscular Hemoglobin Concent 33.1, Red Cell Distribution Width 13.5, Platelet Count 159, Mean Platelet Volume 6.3L, Neutrophils (%) (Auto) 60.2, Lymphocytes ( %) (Auto) 19.7L, Monocytes (%) (Auto) 10.1H, Eosinophils (%) (Auto) 8.5H, Basophils (%) (Auto) 1.4, Sodium Level 141, Potassium Level 4.0, Chloride Level 111H, Carbon Dioxide Level 23, Anion Gap 7, Blood Urea Nitrogen 34H, Creatinine 3.4H, Estimat Glomerular Filtration Rate 18.8, Glucose Level 87, Uric Acid 7.5H , Calcium Level 7.6L, Phosphorus Level 5.3H, Magnesium Level 1.9, Total Bilirubin 0.2, Gamma Glutamyl Transpeptidase 40, Aspartate Amino Transf (AST/ SGOT) 29, Alanine Aminotransferase (ALT/SGPT) 36, Alkaline Phosphatase 84, Total Creatine Kinase 66, Total Protein 4.9L, Albumin 1.3L, Globulin 3.6, Albumin/Globulin Ratio 0.4L Height (Feet): 5 Height (Inches): 6.00 Weight (Pounds): 187 General Appearance: no apparent distress, alert Neurologic: oriented x 3, responsive, depressed affect Toney Joseph MD Dec 14, 2017 13:27
--- NOTE | 2017-12-14 14:08 | GI Progress Note ---
Assessment/Plan Problems: (1) Acute post-hemorrhagic anemia ICD Codes: D62 - Acute posthemorrhagic anemia SNOMED: 571696250 (2) Rectal bleed ICD Codes: K62.5 - Hemorrhage of anus and rectum SNOMED: 36311605 (3) Anemia in chronic kidney disease (CKD) ICD Codes: N18.9 - Chronic kidney disease, unspecified; D63.1 - Anemia in chronic kidney disease SNOMED: 491006217, 859718042 (4) Diabetes ICD Codes: E11.9 - Type 2 diabetes mellitus without complications SNOMED: 34708621, 74602199 (5) Anemia ICD Codes: D64.9 - Anemia, unspecified SNOMED: 780141065 Status: stable Status Narrative Discussed with Dr. Muro. Assessment/Plan SUMMARY OF FINDINGS: 1. Active bleeding from most probably polypectomy site in the transverse colon, status post hemostasis with both combination of the Hemoclip and gold probe cauterization. 2. A large polyp in the descending colon around 40 cm, pedunculated, removed with the snare polypectomy technique. Colonoscopy #3 >> No active bleeding from the sites of polypectomy. Actually polypectomy sites looks clean without any obvious active bleeding at this time, so the scope was gradually retrieved and procedure was terminated. RECOMMENDATIONS: okay for DC per GI standpoint The patient to be kept off of the aspirin and Plavix for at least another next 2 weeks. monitor H&H closely, prn transfusions adv diet ppi fu labs patient will require colonoscopy x 1 year given large polyp The patient was seen and examined at bedside and all new and available data was reviewed in the patients chart. I agree with the above findings, impression and plan. (Patient seen earlier today. Signature stamp does not reflect patient encounter time.). - Carlos Muro MD Subjective Subjective no blood noted in stool denies abdominal pain no N/V Objective Last 24 Hour Vital Signs Date Time Temp Pulse Resp B/P (MAP) Pulse Ox O2 Delivery O2 Flow Rate FiO2 12/14/17 13:57 152/80 12/14/17 13:57 152/80 12/14/17 12:00 66 12/14/17 12:00 97.6 62 20 152/79 (103) 98 97.6 12/14/17 09:49 62 148/81 12/14/17 09:00 Room Air 12/14/17 08:38 77 171/97 12/14/17 08:00 75 12/14/17 08:00 97.9 77 20 171/97 (121) 98 97.9 12/14/17 06:17 134/72 12/14/17 06:17 134/72 12/14/17 04:00 97.5 64 20 160/89 (112) 99 97.5 12/14/17 04:00 63 12/14/17 00:00 97.7 67 20 159/94 (115) 98 97.7 12/14/17 00:00 63 12/13/17 22:25 159/83 12/13/17 22:24 159/83 12/13/17 21:00 Room Air 12/13/17 20:00 97.2 66 18 154/85 (108) 98 97.2 12/13/17 20:00 67 12/13/17 16:00 97.5 94 20 151/63 (92) 93 97.5 12/13/17 16:00 67 Intake and Output 12/13/17 12/14/17 19:00 07:00 Intake Total 350 ml Output Total 600 ml 25 ml Balance -250 ml -25 ml IV Total 350 ml Output Urine Total 600 ml 25 ml # Voids 4 3 # Bowel Movements 3 Laboratory Tests Test 12/14/17 05:55 White Blood Count 8.2 K/UL (4.8-10.8) Red Blood Count 3.31 M/UL (4.70-6.10) L Hemoglobin 9.6 G/DL (14.2-18.0) L Hematocrit 28.9 % (42.0-52.0) L Mean Corpuscular Volume 87 FL (80-99) Mean Corpuscular Hemoglobin 28.9 PG (27.0-31.0) Mean Corpuscular Hemoglobin Concent 33.1 G/DL (32.0-36.0) Red Cell Distribution Width 13.5 % (11.6-14.8) Platelet Count 159 K/UL (150-450) Mean Platelet Volume 6.3 FL (6.5-10.1) L Neutrophils (%) (Auto) 60.2 % (45.0-75.0) Lymphocytes (%) (Auto) 19.7 % (20.0-45.0) L Monocytes (%) (Auto) 10.1 % (1.0-10.0) H Eosinophils (%) (Auto) 8.5 % (0.0-3.0) H Basophils (%) (Auto) 1.4 % (0.0-2.0) Sodium Level 141 MMOL/L (136-145) Potassium Level 4.0 MMOL/L (3.5-5.1) Chloride Level 111 MMOL/L (98-107) H Carbon Dioxide Level 23 MMOL/L (21-32) Anion Gap 7 mmol/L (5-15) Blood Urea Nitrogen 34 mg/dL (7-18) H Creatinine 3.4 MG/DL (0.55-1.30) H Estimat Glomerular Filtration Rate 18.8 mL/min (>60) Glucose Level 87 MG/DL (74-106) Uric Acid 7.5 MG/DL (2.6-7.2) H Calcium Level 7.6 MG/DL (8.5-10.1) L Phosphorus Level 5.3 MG/DL (2.5-4.9) H Magnesium Level 1.9 MG/DL (1.8-2.4) Total Bilirubin 0.2 MG/DL (0.2-1.0) Gamma Glutamyl Transpeptidase 40 U/L (5-85) Aspartate Amino Transf (AST/SGOT) 29 U/L (15-37) Alanine Aminotransferase (ALT/SGPT) 36 U/L (12-78) Alkaline Phosphatase 84 U/L (46-116) Total Creatine Kinase 66 U/L (26-308) Total Protein 4.9 G/DL (6.4-8.2) L Albumin 1.3 G/DL (3.4-5.0) L Globulin 3.6 g/dL Albumin/Globulin Ratio 0.4 (1.0-2.7) L Height (Feet): 5 Height (Inches): 6.00 Weight (Pounds): 187 General Appearance: WD/WN, no apparent distress, alert Cardiovascular: normal rate Respiratory/Chest: normal breath sounds, no respiratory distress Abdominal Exam: normal bowel sounds, non tender, soft Extremities: normal range of motion, non-tender Holley Ahumada [employer] Dec 14, 2017 14:08
[2017-12-14 16:00] VITALS: BP 143/85
--- NOTE | 2017-12-14 18:03 | General Progress Note ---
Assessment/Plan Problem List: (1) Anemia ICD Codes: D64.9 - Anemia, unspecified SNOMED: 187046713 (2) Diabetes ICD Codes: E11.9 - Type 2 diabetes mellitus without complications SNOMED: 10127440, 12809948 (3) Hypertension ICD Codes: I10 - Essential (primary) hypertension SNOMED: 74650065, 45104424 (4) Diabetic foot ulcer ICD Codes: E11.621 - Type 2 diabetes mellitus with foot ulcer; L97.509 - Non- pressure chronic ulcer of other part of unspecified foot with unspecified severity SNOMED: 594420921, 42078895 Status: progressing Assessment/Plan s/p polypectomy recurrent bleeding at polypectomy site requiring multiple transfusions moniter for bleeding check h/h diabetic nephrotic syndrome Subjective ROS Limited/Unobtainable: Yes Allergies: Coded Allergies: No Known Allergies (Unverified , 12/04/17) Subjective edema Objective Last 24 Hour Vital Signs Date Time Temp Pulse Resp B/P (MAP) Pulse Ox O2 Delivery O2 Flow Rate FiO2 12/14/17 16:00 58 12/14/17 16:00 97.5 62 20 143/85 (104) 100 97.5 12/14/17 13:57 152/80 12/14/17 13:57 152/80 12/14/17 12:00 66 12/14/17 12:00 97.6 62 20 152/79 (103) 98 97.6 12/14/17 09:49 62 148/81 12/14/17 09:00 Room Air 12/14/17 08:38 77 171/97 12/14/17 08:00 75 12/14/17 08:00 97.9 77 20 171/97 (121) 98 97.9 12/14/17 06:17 134/72 12/14/17 06:17 134/72 12/14/17 04:00 97.5 64 20 160/89 (112) 99 97.5 12/14/17 04:00 63 12/14/17 00:00 97.7 67 20 159/94 (115) 98 97.7 12/14/17 00:00 63 12/13/17 22:25 159/83 12/13/17 22:24 159/83 12/13/17 21:00 Room Air 12/13/17 20:00 97.2 66 18 154/85 (108) 98 97.2 12/13/17 20:00 67 Intake and Output 12/13/17 12/14/17 19:00 07:00 Intake Total 350 ml Output Total 600 ml 25 ml Balance -250 ml -25 ml IV Total 350 ml Output Urine Total 600 ml 25 ml # Voids 4 3 # Bowel Movements 3 Laboratory Tests 12/14/17 05:55: White Blood Count 8.2, Red Blood Count 3.31L, Hemoglobin 9.6L, Hematocrit 28.9L , Mean Corpuscular Volume 87, Mean Corpuscular Hemoglobin 28.9, Mean Corpuscular Hemoglobin Concent 33.1, Red Cell Distribution Width 13.5, Platelet Count 159, Mean Platelet Volume 6.3L, Neutrophils (%) (Auto) 60.2, Lymphocytes ( %) (Auto) 19.7L, Monocytes (%) (Auto) 10.1H, Eosinophils (%) (Auto) 8.5H, Basophils (%) (Auto) 1.4, Sodium Level 141, Potassium Level 4.0, Chloride Level 111H, Carbon Dioxide Level 23, Anion Gap 7, Blood Urea Nitrogen 34H, Creatinine 3.4H, Estimat Glomerular Filtration Rate 18.8, Glucose Level 87, Uric Acid 7.5H , Calcium Level 7.6L, Phosphorus Level 5.3H, Magnesium Level 1.9, Total Bilirubin 0.2, Gamma Glutamyl Transpeptidase 40, Aspartate Amino Transf (AST/ SGOT) 29, Alanine Aminotransferase (ALT/SGPT) 36, Alkaline Phosphatase 84, Total Creatine Kinase 66, Total Protein 4.9L, Albumin 1.3L, Globulin 3.6, Albumin/Globulin Ratio 0.4L Height (Feet): 5 Height (Inches): 6.00 Weight (Pounds): 187 Cardiovascular: normal rate Respiratory/Chest: lungs clear Romaine Molina MD Dec 14, 2017 18:03
[2017-12-14 20:00] VITALS: BP 152/84
[2017-12-14] MEDS: Dyna-Hex 2% Top Sol 2oz TOPIC SCH (20:17)
[2017-12-14] MEDS: Metoprolol Tartrate 12.5mg TAB ORAL SCH (21:00)
[2017-12-14] MEDS: Tamsulosin 0.4mg cap ORAL SCH (21:18)
[2017-12-14] MEDS: Atorvastatin 20mg tab ORAL SCH (21:19)
[2017-12-14] MEDS: Iron Sucrose 100 MG in NS 55 ML IV SCH (21:20)
[2017-12-15] VITALS: BP 160/83
[2017-12-15 04:00] VITALS: BP 149/85
[2017-12-15 04:28] LABS: BASOPHILS % (AUTO) 0.8 % (0.0-2.0); EOSINOPHILS % (AUTO) 6.2 % (0.0-3.0); HEMATOCRIT 28.7 % (42.0-52.0); HEMOGLOBIN 9.6 G/DL (14.2-18.0); LYMPHOCYTES % (AUTO) 19.1 % (20.0-45.0); MEAN CORPUSCULAR VOLUME 88 FL (80-99); MONOCYTES % (AUTO) 9.3 % (1.0-10.0); NEUTROPHILS % (AUTO) 64.5 % (45.0-75.0); PLATELET COUNT 167 K/UL (150-450); RED BLOOD COUNT 3.28 M/UL (4.70-6.10); RED CELL DISTRIBUTION WIDTH 13.4 % (11.6-14.8); WHITE BLOOD COUNT 8.9 K/UL (4.8-10.8)
[2017-12-15 04:37] LABS: ANION GAP 4 mmol/L (5-15); BLOOD UREA NITROGEN 33 mg/dL (7-18); CALCIUM 7.6 MG/DL (8.5-10.1); CARBON DIOXIDE 26 MMOL/L (21-32); CHLORIDE 111 MMOL/L (98-107); CREATININE 3.5 MG/DL (0.55-1.30); PHOSPHORUS 5.2 MG/DL (2.5-4.9); POTASSIUM 4.5 MMOL/L (3.5-5.1); SODIUM 141 MMOL/L (136-145)
[2017-12-15] MEDS: HydrALAZINE 50mg tab ORAL SCH (05:31)
[2017-12-15] MEDS: NovoLOG Insulin Flexpen SUBQ SCH ×2 (05:32→11:28)
[2017-12-15 08:00] VITALS: BP 156/82
[2017-12-15] MEDS: Metoprolol Tartrate 12.5mg TAB ORAL SCH (08:49)
--- NOTE | 2017-12-15 10:49 | Nephrology Progress Note ---
Assessment/Plan Problem List: (1) Renal failure (ARF), acute on chronic Assessment: sever hypoalbuminemia (2) Anemia in chronic kidney disease (CKD) (3) Acute post-hemorrhagic anemia (4) Hypertensive urgency (5) Diabetic foot ulcer (6) Rectal bleed Assessment: over night, post polipectopy 12/08 Assessment no further bleed- Renal failure- likely chronic due to diabetic nephropathy Anemia , had rectal bleed post polypectomy Proteinuria / Hypoalbuminemia HTN OOC Diabetic foot ULCER Left ventricular ejection fraction estimated to be 55-60 %. Plan transfused- BP stable [place] due to renal failure and hypoalbuminemia- one dose Zaroxyllin BP management- meds rearranged ,,,BP OK DC Plavix and ASA for next 2 weeks per GI Wound care Avoid nephrotoxics Monitor renal parameters per orders Left ventricular ejection fraction estimated to be 55-60 %. kidney NIGEL Increased renal echogenicity bilaterally. Correlate for medical renal disease. IV Iron Subjective ROS Limited/Unobtainable: No Constitutional: Reports: malaise Subjective rectal bleed Objective Objective Last 24 Hour Vital Signs Date Time Temp Pulse Resp B/P (MAP) Pulse Ox O2 Delivery O2 Flow Rate FiO2 12/15/17 09:00 Room Air 12/15/17 08:49 63 156/82 12/15/17 08:48 63 156/82 12/15/17 08:00 97.9 63 20 156/82 (106) 99 97.9 12/15/17 08:00 68 12/15/17 05:31 149/85 12/15/17 05:31 149/85 12/15/17 04:00 57 12/15/17 04:00 97.7 63 20 149/85 (106) 98 97.7 12/15/17 00:00 56 12/15/17 00:00 98.3 61 20 160/83 (108) 100 98.3 12/14/17 21:23 143/85 12/14/17 21:18 143/85 12/14/17 21:00 Room Air 12/14/17 20:00 98.4 62 20 152/84 (106) 99 98.4 12/14/17 20:00 67 12/14/17 16:00 58 12/14/17 16:00 97.5 62 20 143/85 (104) 100 97.5 12/14/17 13:57 152/80 12/14/17 13:57 152/80 12/14/17 12:00 66 12/14/17 12:00 97.6 62 20 152/79 (103) 98 97.6 Intake and Output 12/14/17 12/15/17 19:00 07:00 Intake Total 670 ml 250 ml Output Total 800 ml 500 ml Balance -130 ml -250 ml Intake Oral 670 ml 250 ml Output Urine Total 800 ml 500 ml # Voids 1 # Bowel Movements 1 Current Medications Medications (Trade) Dose Ordered Sig/Wilbert Route PRN Reason Start Time Stop Time Status Last Admin Dose Admin Amlodipine Besylate (Norvasc) 10 mg DAILY ORAL 12/09/17 09:00 01/08/18 08:59 12/15/17 08:48 Atorvastatin Calcium (Lipitor) 40 mg BEDTIME ORAL 12/07/17 21:00 01/06/18 20:59 12/14/17 21:19 Chlorhexidine Gluconate (Kavita-Hex 2%) 1 applic DAILY@1999 TOPIC 12/13/17 20:00 01/12/18 19:59 12/14/17 20:17 Clonidine HCl (Catapres Tab) 0.1 mg Q8HR ORAL 12/09/17 12:30 01/08/18 12:29 12/15/17 05:31 Dextrose (Dextrose 50%) 25 ml STAT PRN IV Hypoglycemia 12/06/17 22:30 01/05/18 22:29 Dextrose (Dextrose 50%) 50 ml STAT PRN IV Hypoglycemia 12/06/17 22:30 01/05/18 22:29 Furosemide (Lasix) 20 mg DAILY ORAL 12/13/17 09:00 01/12/18 08:59 12/15/17 08:49 Heparin Sodium/ Sodium Chloride (Heparin 2000 units/Ns 1000ml premix) 2,000 unit ONCE PRN INJ for picc line placement 12/13/17 19:00 12/15/17 18:59 Hydralazine HCl (Apresoline) 75 mg Q8HR ORAL 12/15/17 14:00 01/14/18 13:59 Insulin Aspart (NovoLOG) BEFORE MEALS AND HS SUBQ 12/07/17 06:30 01/06/18 06:29 12/15/17 05:32 Lidocaine HCl (Xylocaine 1% 30ml) 30 ml ONCE PRN INJ for picc line placement 12/13/17 19:00 12/15/17 18:59 Metoprolol Tartrate (Lopressor) 12.5 mg Q12HR ORAL 12/14/17 21:00 01/13/18 20:59 12/15/17 08:49 Minoxidil (Loniten) 2.5 mg Q4H PRN ORAL BP over 165 syst 12/09/17 11:30 01/08/18 11:29 12/09/17 17:46 Pantoprazole (Protonix) 40 mg DAILY ORAL 12/08/17 10:30 01/07/18 10:29 12/15/17 08:48 Tamsulosin HCl (Flomax) 0.4 mg BEDTIME ORAL 12/08/17 21:00 01/07/18 20:59 12/14/17 21:18 Laboratory Tests 12/15/17 04:00: White Blood Count 8.9, Red Blood Count 3.28L, Hemoglobin 9.6L, Hematocrit 28.7L , Mean Corpuscular Volume 88, Mean Corpuscular Hemoglobin 29.2, Mean Corpuscular Hemoglobin Concent 33.3, Red Cell Distribution Width 13.4, Platelet Count 167, Mean Platelet Volume 6.1L, Neutrophils (%) (Auto) 64.5, Lymphocytes ( %) (Auto) 19.1L, Monocytes (%) (Auto) 9.3, Eosinophils (%) (Auto) 6.2H, Basophils (%) (Auto) 0.8, Sodium Level 141, Potassium Level 4.5, Chloride Level 111H, Carbon Dioxide Level 26, Anion Gap 4L, Blood Urea Nitrogen 33H, Creatinine 3.5H, Estimat Glomerular Filtration Rate 18.1, Glucose Level 131H, Calcium Level 7.6L, Phosphorus Level 5.2H, Magnesium Level 1.9, Hepatitis A IgM Antibody [Pending], Hepatitis B Surface Antigen [Pending], Hepatitis B Core IgM Antibody [Pending], Hepatitis C Antibody [Pending], HIV (1&2) Antibody Rapid [ Pending] Height (Feet): 5 Height (Inches): 6.00 Weight (Pounds): 187 General Appearance: no apparent distress Respiratory/Chest: lungs clear Abdomen: soft Objective no change Gino Connors MD Dec 15, 2017 10:49
[2017-12-15] MEDS ORDERED: Tubing IV Secondary IV ONE (10:52)
[2017-12-15] MEDS ORDERED: Tubing IV Blood Pump IV ONE (10:52)
[2017-12-15] MEDS ORDERED: NS 275ml ONE (10:52)
--- NOTE | 2017-12-15 11:18 | General Surgery Progress Note ---
General Surgery-Progress Note Subjective Additional Comments no acute events. doing well. comfortable. Objective Last 24 Hour Vital Signs Date Time Temp Pulse Resp B/P (MAP) Pulse Ox O2 Delivery O2 Flow Rate FiO2 12/15/17 09:00 Room Air 12/15/17 08:49 63 156/82 12/15/17 08:48 63 156/82 12/15/17 08:00 97.9 63 20 156/82 (106) 99 97.9 12/15/17 08:00 68 12/15/17 05:31 149/85 12/15/17 05:31 149/85 12/15/17 04:00 57 12/15/17 04:00 97.7 63 20 149/85 (106) 98 97.7 12/15/17 00:00 56 12/15/17 00:00 98.3 61 20 160/83 (108) 100 98.3 12/14/17 21:23 143/85 12/14/17 21:18 143/85 12/14/17 21:00 Room Air 12/14/17 20:00 98.4 62 20 152/84 (106) 99 98.4 12/14/17 20:00 67 12/14/17 16:00 58 12/14/17 16:00 97.5 62 20 143/85 (104) 100 97.5 12/14/17 13:57 152/80 12/14/17 13:57 152/80 12/14/17 12:00 66 12/14/17 12:00 97.6 62 20 152/79 (103) 98 97.6 I&O Intake and Output 12/14/17 12/15/17 19:00 07:00 Intake Total 670 ml 250 ml Output Total 800 ml 500 ml Balance -130 ml -250 ml Intake Oral 670 ml 250 ml Output Urine Total 800 ml 500 ml # Voids 1 # Bowel Movements 1 Dressing: saturated Wound: clean Drains: none Cardiovascular: RSR Respiratory: clear Abdomen: soft, flat, non-tender Extremities: edema, no tenderness Laboratory Tests Test 12/15/17 04:00 White Blood Count 8.9 K/UL (4.8-10.8) Red Blood Count 3.28 M/UL (4.70-6.10) L Hemoglobin 9.6 G/DL (14.2-18.0) L Hematocrit 28.7 % (42.0-52.0) L Mean Corpuscular Volume 88 FL (80-99) Mean Corpuscular Hemoglobin 29.2 PG (27.0-31.0) Mean Corpuscular Hemoglobin Concent 33.3 G/DL (32.0-36.0) Red Cell Distribution Width 13.4 % (11.6-14.8) Platelet Count 167 K/UL (150-450) Mean Platelet Volume 6.1 FL (6.5-10.1) L Neutrophils (%) (Auto) 64.5 % (45.0-75.0) Lymphocytes (%) (Auto) 19.1 % (20.0-45.0) L Monocytes (%) (Auto) 9.3 % (1.0-10.0) Eosinophils (%) (Auto) 6.2 % (0.0-3.0) H Basophils (%) (Auto) 0.8 % (0.0-2.0) Sodium Level 141 MMOL/L (136-145) Potassium Level 4.5 MMOL/L (3.5-5.1) Chloride Level 111 MMOL/L (98-107) H Carbon Dioxide Level 26 MMOL/L (21-32) Anion Gap 4 mmol/L (5-15) L Blood Urea Nitrogen 33 mg/dL (7-18) H Creatinine 3.5 MG/DL (0.55-1.30) H Estimat Glomerular Filtration Rate 18.1 mL/min (>60) Glucose Level 131 MG/DL (74-106) H Calcium Level 7.6 MG/DL (8.5-10.1) L Phosphorus Level 5.2 MG/DL (2.5-4.9) H Magnesium Level 1.9 MG/DL (1.8-2.4) Hepatitis A IgM Antibody Pending Hepatitis B Surface Antigen Pending Hepatitis B Core IgM Antibody Pending Hepatitis C Antibody Pending HIV (1&2) Antibody Rapid Negative (NEGATIVE) Plan Problems: (1) Anemia (2) Diabetes (3) Ulcer of right heel and midfoot with fat layer exposed Assessment & Plan: left foot amputation, right foot amputation, right foot with large heel ulcer non healing possibly down to bone -MRI right foot -- Extensive diffuse soft tissue edema, nonspecific in appearance but likely on the basis of cellulitis given stated clinical history Possible small 16 mm abscess in the medial ankle subcutaneous fat No osseous signal abnormality to suggest osteomyelitis on exam no abscess noted. no drainable collection seen. -wet to dry dressing to help with debridement of fibrinous debris. -keep off wound -heel protectors. -conservative management of hemorrhoids. if continue to bleed can consider surgical intervention Angel Browning Dec 15, 2017 11:18
[2017-12-15 12:00] VITALS: BP 159/89
--- NOTE | 2017-12-15 12:11 | General Progress Note ---
Assessment/Plan Status: stable Assessment/Plan COVERING FOR: Dr. Molina, Internal Medicine 1. Anemia due to Gi bleed from polypectomy site --> Continue to closely monitor for improvement. --> Anemia panel has been reviewed, will trend cbc --> Hgb goal >7 --> 12/10 s/p 1 unit, 12/11 s/p 1 unit, 12/12 1 unit, 12/13 1 unit --> no asa or palcix x 2 weeks 2. Anemia due to underlying kidney disease. --> Closely monitor for improvement. 3. Mild protein-caloric malnutrition. 4. Leukocytosis potentially secondary to reactive process. --> Completed abx --> WBC normalized 5. Diabetes mellitus. A1c goal less than 7. 6. Constipation. Endoscopy as per gastrointestinal service. --> 12/13 colonoscopy The time the note was entered does not necessarily correspond to the time the patient was seen. Subjective Date patient seen: Dec 15, 2017 ROS Limited/Unobtainable: Yes Hematologic/Lymphatic: Reports: anemia Allergies: Coded Allergies: No Known Allergies (Unverified , 12/04/17) All Systems: reviewed and negative except above Subjective Pt awake and alert. No acute events. H/H stable. DC back to SNF planning. Objective Last 24 Hour Vital Signs Date Time Temp Pulse Resp B/P (MAP) Pulse Ox O2 Delivery O2 Flow Rate FiO2 12/15/17 09:00 Room Air 12/15/17 08:49 63 156/82 12/15/17 08:48 63 156/82 12/15/17 08:00 97.9 63 20 156/82 (106) 99 97.9 12/15/17 08:00 68 12/15/17 05:31 149/85 12/15/17 05:31 149/85 12/15/17 04:00 57 12/15/17 04:00 97.7 63 20 149/85 (106) 98 97.7 12/15/17 00:00 56 12/15/17 00:00 98.3 61 20 160/83 (108) 100 98.3 12/14/17 21:23 143/85 12/14/17 21:18 143/85 12/14/17 21:00 Room Air 12/14/17 20:00 98.4 62 20 152/84 (106) 99 98.4 12/14/17 20:00 67 12/14/17 16:00 58 12/14/17 16:00 97.5 62 20 143/85 (104) 100 97.5 12/14/17 13:57 152/80 12/14/17 13:57 152/80 Intake and Output 12/14/17 12/15/17 19:00 07:00 Intake Total 670 ml 250 ml Output Total 800 ml 500 ml Balance -130 ml -250 ml Intake Oral 670 ml 250 ml Output Urine Total 800 ml 500 ml # Voids 1 # Bowel Movements 1 Laboratory Tests 12/15/17 04:00: White Blood Count 8.9, Red Blood Count 3.28L, Hemoglobin 9.6L, Hematocrit 28.7L , Mean Corpuscular Volume 88, Mean Corpuscular Hemoglobin 29.2, Mean Corpuscular Hemoglobin Concent 33.3, Red Cell Distribution Width 13.4, Platelet Count 167, Mean Platelet Volume 6.1L, Neutrophils (%) (Auto) 64.5, Lymphocytes ( %) (Auto) 19.1L, Monocytes (%) (Auto) 9.3, Eosinophils (%) (Auto) 6.2H, Basophils (%) (Auto) 0.8, Sodium Level 141, Potassium Level 4.5, Chloride Level 111H, Carbon Dioxide Level 26, Anion Gap 4L, Blood Urea Nitrogen 33H, Creatinine 3.5H, Estimat Glomerular Filtration Rate 18.1, Glucose Level 131H, Calcium Level 7.6L, Phosphorus Level 5.2H, Magnesium Level 1.9, Hepatitis A IgM Antibody [Pending], Hepatitis B Surface Antigen [Pending], Hepatitis B Core IgM Antibody [Pending], Hepatitis C Antibody [Pending], HIV (1&2) Antibody Rapid Negative Height (Feet): 5 Height (Inches): 6.00 Weight (Pounds): 187 General Appearance: no apparent distress, alert EENT: PERRL/EOMI Neck: normal alignment Cardiovascular: normal peripheral pulses Respiratory/Chest: no respiratory distress Abdomen: normal bowel sounds, soft Ronnie Bray MD Dec 15, 2017 12:11
--- NOTE | 2017-12-15 12:43 | General Progress Note ---
Assessment/Plan Assessment/Plan Adjustment d/o anxiety d/o ativan prn ro/st Subjective Date patient seen: Dec 15, 2017 Neurologic/Psychiatric: Reports: anxiety, depressed, emotional problems Allergies: Coded Allergies: No Known Allergies (Unverified , 12/04/17) Objective Last 24 Hour Vital Signs Date Time Temp Pulse Resp B/P (MAP) Pulse Ox O2 Delivery O2 Flow Rate FiO2 12/15/17 12:00 98.4 63 18 159/89 (112) 100 98.4 12/15/17 09:00 Room Air 12/15/17 08:49 63 156/82 12/15/17 08:48 63 156/82 12/15/17 08:00 97.9 63 20 156/82 (106) 99 97.9 12/15/17 08:00 68 12/15/17 05:31 149/85 12/15/17 05:31 149/85 12/15/17 04:00 57 12/15/17 04:00 97.7 63 20 149/85 (106) 98 97.7 12/15/17 00:00 56 12/15/17 00:00 98.3 61 20 160/83 (108) 100 98.3 12/14/17 21:23 143/85 12/14/17 21:18 143/85 12/14/17 21:00 Room Air 12/14/17 20:00 98.4 62 20 152/84 (106) 99 98.4 12/14/17 20:00 67 12/14/17 16:00 58 12/14/17 16:00 97.5 62 20 143/85 (104) 100 97.5 12/14/17 13:57 152/80 12/14/17 13:57 152/80 Intake and Output 12/14/17 12/15/17 19:00 07:00 Intake Total 670 ml 250 ml Output Total 800 ml 500 ml Balance -130 ml -250 ml Intake Oral 670 ml 250 ml Output Urine Total 800 ml 500 ml # Voids 1 # Bowel Movements 1 Laboratory Tests 12/15/17 04:00: White Blood Count 8.9, Red Blood Count 3.28L, Hemoglobin 9.6L, Hematocrit 28.7L , Mean Corpuscular Volume 88, Mean Corpuscular Hemoglobin 29.2, Mean Corpuscular Hemoglobin Concent 33.3, Red Cell Distribution Width 13.4, Platelet Count 167, Mean Platelet Volume 6.1L, Neutrophils (%) (Auto) 64.5, Lymphocytes ( %) (Auto) 19.1L, Monocytes (%) (Auto) 9.3, Eosinophils (%) (Auto) 6.2H, Basophils (%) (Auto) 0.8, Sodium Level 141, Potassium Level 4.5, Chloride Level 111H, Carbon Dioxide Level 26, Anion Gap 4L, Blood Urea Nitrogen 33H, Creatinine 3.5H, Estimat Glomerular Filtration Rate 18.1, Glucose Level 131H, Calcium Level 7.6L, Phosphorus Level 5.2H, Magnesium Level 1.9, Hepatitis A IgM Antibody [Pending], Hepatitis B Surface Antigen [Pending], Hepatitis B Core IgM Antibody [Pending], Hepatitis C Antibody [Pending], HIV (1&2) Antibody Rapid Negative Height (Feet): 5 Height (Inches): 6.00 Weight (Pounds): 187 Toney Joseph MD Dec 15, 2017 12:43
[2017-12-15] MEDS ORDERED: HydrALAZINE 25mg tab ORAL SCH (14:00)
--- NOTE | 2017-12-15 14:28 | GI Progress Note ---
Assessment/Plan Problems: (1) Acute post-hemorrhagic anemia ICD Codes: D62 - Acute posthemorrhagic anemia SNOMED: 972863014 (2) Rectal bleed ICD Codes: K62.5 - Hemorrhage of anus and rectum SNOMED: 44500364 (3) Anemia in chronic kidney disease (CKD) ICD Codes: N18.9 - Chronic kidney disease, unspecified; D63.1 - Anemia in chronic kidney disease SNOMED: 265232521, 081964286 (4) Diabetes ICD Codes: E11.9 - Type 2 diabetes mellitus without complications SNOMED: 56085476, 24504780 (5) Anemia ICD Codes: D64.9 - Anemia, unspecified SNOMED: 595733370 Status: stable Status Narrative Discussed with Dr. Muro. Assessment/Plan SUMMARY OF FINDINGS: 1. Active bleeding from most probably polypectomy site in the transverse colon, status post hemostasis with both combination of the Hemoclip and gold probe cauterization. 2. A large polyp in the descending colon around 40 cm, pedunculated, removed with the snare polypectomy technique. Colonoscopy #3 >> No active bleeding from the sites of polypectomy. Actually polypectomy sites looks clean without any obvious active bleeding at this time, so the scope was gradually retrieved and procedure was terminated. RECOMMENDATIONS: okay for DC per GI standpoint The patient to be kept off of the aspirin and Plavix for at least another next 2 weeks. monitor H&H closely, prn transfusions adv diet ppi fu labs patient will require colonoscopy x 1 year given large polyp The patient was seen and examined at bedside and all new and available data was reviewed in the patients chart. I agree with the above findings, impression and plan. (Patient seen earlier today. Signature stamp does not reflect patient encounter time.). - Carlos Muro MD Subjective Subjective no blood noted in stool denies abdominal pain no N/V Objective Last 24 Hour Vital Signs Date Time Temp Pulse Resp B/P (MAP) Pulse Ox O2 Delivery O2 Flow Rate FiO2 12/15/17 12:00 98.4 63 18 159/89 (112) 100 98.4 12/15/17 12:00 62 12/15/17 09:00 Room Air 12/15/17 08:49 63 156/82 12/15/17 08:48 63 156/82 12/15/17 08:00 97.9 63 20 156/82 (106) 99 97.9 12/15/17 08:00 68 12/15/17 05:31 149/85 12/15/17 05:31 149/85 12/15/17 04:00 57 12/15/17 04:00 97.7 63 20 149/85 (106) 98 97.7 12/15/17 00:00 56 12/15/17 00:00 98.3 61 20 160/83 (108) 100 98.3 12/14/17 21:23 143/85 12/14/17 21:18 143/85 12/14/17 21:00 Room Air 12/14/17 20:00 98.4 62 20 152/84 (106) 99 98.4 12/14/17 20:00 67 12/14/17 16:00 58 12/14/17 16:00 97.5 62 20 143/85 (104) 100 97.5 Intake and Output 12/14/17 12/15/17 19:00 07:00 Intake Total 670 ml 250 ml Output Total 800 ml 500 ml Balance -130 ml -250 ml Intake Oral 670 ml 250 ml Output Urine Total 800 ml 500 ml # Voids 1 # Bowel Movements 1 Laboratory Tests Test 12/15/17 04:00 White Blood Count 8.9 K/UL (4.8-10.8) Red Blood Count 3.28 M/UL (4.70-6.10) L Hemoglobin 9.6 G/DL (14.2-18.0) L Hematocrit 28.7 % (42.0-52.0) L Mean Corpuscular Volume 88 FL (80-99) Mean Corpuscular Hemoglobin 29.2 PG (27.0-31.0) Mean Corpuscular Hemoglobin Concent 33.3 G/DL (32.0-36.0) Red Cell Distribution Width 13.4 % (11.6-14.8) Platelet Count 167 K/UL (150-450) Mean Platelet Volume 6.1 FL (6.5-10.1) L Neutrophils (%) (Auto) 64.5 % (45.0-75.0) Lymphocytes (%) (Auto) 19.1 % (20.0-45.0) L Monocytes (%) (Auto) 9.3 % (1.0-10.0) Eosinophils (%) (Auto) 6.2 % (0.0-3.0) H Basophils (%) (Auto) 0.8 % (0.0-2.0) Sodium Level 141 MMOL/L (136-145) Potassium Level 4.5 MMOL/L (3.5-5.1) Chloride Level 111 MMOL/L (98-107) H Carbon Dioxide Level 26 MMOL/L (21-32) Anion Gap 4 mmol/L (5-15) L Blood Urea Nitrogen 33 mg/dL (7-18) H Creatinine 3.5 MG/DL (0.55-1.30) H Estimat Glomerular Filtration Rate 18.1 mL/min (>60) Glucose Level 131 MG/DL (74-106) H Calcium Level 7.6 MG/DL (8.5-10.1) L Phosphorus Level 5.2 MG/DL (2.5-4.9) H Magnesium Level 1.9 MG/DL (1.8-2.4) Hepatitis A IgM Antibody Pending Hepatitis B Surface Antigen Pending Hepatitis B Core IgM Antibody Pending Hepatitis C Antibody Pending HIV (1&2) Antibody Rapid Negative (NEGATIVE) Height (Feet): 5 Height (Inches): 6.00 Weight (Pounds): 187 General Appearance: WD/WN, no apparent distress, alert Cardiovascular: normal rate Respiratory/Chest: normal breath sounds, no respiratory distress Abdominal Exam: normal bowel sounds, non tender, soft Extremities: normal range of motion, non-tender Holley Ahumada NP Dec 15, 2017 14:28
[2017-12-15 14:29] VITALS: BP 157/77
--- NOTE | 2017-12-18 12:09 | Discharge Summary ---
Discharge Summary Discharge Summary _ DATE OF ADMISSION: 12/06/2017 DATE OF DISCHARGE: 12/15/2017 REASON FOR ADMISSION: 57 years old male with past medical history significant for diabetes, hypertension, recent CVA, bilateral forefoot amputation, was sent from assisted living by his primary care provider for evaluation and management of anemia. Patient denied dizziness, shortness of breath, calf pain , chest pain Outpatient laboratory workup revealed hemoglobin of 6.6. Patient was on Plavix after recent stroke. Upon evaluation in emergency department hemoglobin 7.6 hematocrit 23.8 BUN 34., and creatinine 3.8 Vital signs stable, mild leukocytosis WBC 11.3 Patient admitted with diagnoses of anemia, renal failure, history of CVA , diabetes ,hypertension. CONSULTANTS: GI specialist Dr. Muro film splicer Dr. Connors correspondence representative/oncologist Dr. Bray surgery Dr. Browning psychiatrist [facility]: Patient admitted. Patient started on IV hydration and clear liquids diet . Nephrology, GI and hematology consults were requested. Patient undergone transfusion. Hemoglobin and hematocrit were closely monitored with goal to keep hemoglobin above 7. Patient undergone EGD and colonoscopy on 12/08 with finding of gastritis , gastric and colonic polyps, status post 6 colonic polyps removal and internal hemorrhoids. After procedure patient exhibited drop in hemoglobin and hematocrit : on hemoglobin down to 6.3 hematocrit 20.1 Patient undergone on 12/11 colonoscopy with hemostasis and polypectomy, large pedunculated polyp was removed. Active bleeding was from most probably polypectomy site in the transverse colon , status post hemostasis with both combination of the Hemoclip and gold probe cauterization. A large polyp in the descending colon around 40 cm, pedunculated, removed with the snare polypectomy technique. After the procedure patient complained of rectal bleeding and additional colonoscopy was done on12/13, no source of bleeding was not identified. Rectal bleeding possibly was due to internal hemorrhoids, Hemoglobin and hematocrit were slowly improving. Prior to discharge hemoglobin 9.6 hematocrit 28.7. Stool for occult blood was negative. Anemia workup was consistent with anemia of chronic disease. International Marketing Manager closely followed. Patient had anemia of chronic kidney disease as well as acute anemia due to post hemorrhage due to GI bleeding. GI specialist recommended to repeat colonoscopy in one year given large polyp removed. Keep patient off aspirin and Plavix for at least 2 weeks and follow-up with the biopsy results. Patient was on GI prophylaxis. Diet was slowly advanced as tolerated. Patient was able to tolerate diet. No further bleeding. Biopsy of stomach antrum revealed moderate to marked chronic gastritis but was negative for Helicobacter infection. Biopsy of gastric polyp revealed moderate chronic gastritis in one and focally active gastritis in another. Biopsy of colonic polyp revealed tubular and tubulovillous adenoma Renal parameters and electrolytes were closely monitored ,electrolytes corrected as needed, and nephrotoxins were avoided. Soil Conservation Technician followed. Renal ultrasound was consistent with medical renal disease, but no hydronephrosis. Testicular ultrasound revealed bilateral hydroceles. Echocardiogram revealed preserved ejection fraction of 55-60% and evidence of severe pulmonary hypertension with right ventricular systolic pressure of 88. Prior to discharge BUN 33 and creatinine 3.5. Surgeon followed patient for diabetic foot ulcer on the right heel to midfoot. Wound care provided as per surgery recommendations. MRI of the right ankle revealed no evidence to suggest osteomyelitis. No drainage,no evidence of abscess on the exam. Blood sugar was managed with sliding scale of insulin ;hemoglobin A1c 6.1, at goal. Hepatitis panel and HIV test were both negative. Blood pressure was managed with antihypertensive regimen , which was optimized to keep blood pressure under control. Psychiatrist seen and evaluated patient, diagnosed patient with adjustment disorder and anxiety disorder. Reality orientation and supportive therapy provided. Psychiatric medication regimen was optimized. Patient clinically improved . Hemoglobin and hematocrit stable prior to discharge-hemoglobin 9.6 and hematocrit-28.7. FINAL DIAGNOSES: Anemia of chronic kidney disease Acute post hemorrhagic anemia Renal failure ,acute on chronic Diabetic nephropathy Rectal bleeding Diabetes Hypertensive urgency Gastritis, s/p polypectomy Postpolypectomy bleeding Internal hemorrhoids Diabetic foot ulcer with right heel ulcer to midfoot with fat layer exposed Adjustment disorder Anxiety disorder History of CVA DISCHARGE MEDICATIONS: List of Medication provided to patient. DISCHARGE INSTRUCTIONS: Patient was discharge back to assisted living. I have been assigned to dictate discharge summary for this account. I was not involved in the patient's management. Tali Collier NP Dec 18, 2017 12:09
== END 2017-12-15 14:40 | disposition home or self-care (01) | DRG 812 ==
LOC: EDBD 16:43 → EMR 17:03 → 2E 18:16 → EDBEDREQ 18:44
PROC: 30253N1 (ICD-10-PCS; principal; 2017-12-07)
PROC: 0DB78ZX Excision of Stomach, Pylorus, Via Natural or Artificial Opening Endoscopic, Diagnostic (ICD-10-PCS; 2017-12-08 12:07)
PROC: 02HV33Z Insertion of Infusion Device into Superior Vena Cava, Percutaneous Approach (ICD-10-PCS; 2017-12-08 12:07)
PROC: 0DBK8ZZ Excision of Ascending Colon, Via Natural or Artificial Opening Endoscopic (ICD-10-PCS; 2017-12-08 12:07)
PROC: B518ZZA Fluoroscopy of Superior Vena Cava, Guidance (ICD-10-PCS; 2017-12-08 12:07)
PROC: 0DB78ZZ Excision of Stomach, Pylorus, Via Natural or Artificial Opening Endoscopic (ICD-10-PCS; 2017-12-08 12:07)
PROC: 0DBL8ZZ Excision of Transverse Colon, Via Natural or Artificial Opening Endoscopic (ICD-10-PCS; 2017-12-08 12:07)
PROC: 0DBM8ZZ Excision of Descending Colon, Via Natural or Artificial Opening Endoscopic (ICD-10-PCS; 2017-12-11)
PROC: 0W3P8ZZ Control Bleeding in Gastrointestinal Tract, Via Natural or Artificial Opening Endoscopic (ICD-10-PCS; 2017-12-11)
PROC: 0DJD8ZZ Inspection of Lower Intestinal Tract, Via Natural or Artificial Opening Endoscopic (ICD-10-PCS; 2017-12-13)
PROC: B518ZZA Fluoroscopy of Superior Vena Cava, Guidance (ICD-10-PCS; 2017-12-14)
PROC: 02HV33Z Insertion of Infusion Device into Superior Vena Cava, Percutaneous Approach (ICD-10-PCS; 2017-12-14)
DX: D64.89 Other specified anemias (principal); N17.9 Acute kidney failure, unspecified; L97.412 Non-pressure chronic ulcer of right heel and midfoot with fat layer exposed; E44.1 Mild protein-calorie malnutrition; K91.840 Postprocedural hemorrhage of a digestive system organ or structure following a digestive system procedure; K62.5 Hemorrhage of anus and rectum; Z68.30 Body mass index [BMI] 30.0-30.9, adult; D63.1 Anemia in chronic kidney disease; D62 Acute posthemorrhagic anemia; I12.9 Hypertensive chronic kidney disease with stage 1 through stage 4 chronic kidney disease, or unspecified chronic kidney disease; E11.22 Type 2 diabetes mellitus with diabetic chronic kidney disease; N18.9 Chronic kidney disease, unspecified; Z79.4 Long term (current) use of insulin; E11.21 Type 2 diabetes mellitus with diabetic nephropathy; Z86.73 Personal history of transient ischemic attack (TIA), and cerebral infarction without residual deficits; I16.0 Hypertensive urgency; I13.10 Hypertensive heart and chronic kidney disease without heart failure, with stage 1 through stage 4 chronic kidney disease, or unspecified chronic kidney disease; I48.91 Unspecified atrial fibrillation; Z79.01 Long term (current) use of anticoagulants; F43.22 Adjustment disorder with anxiety; D72.829 Elevated white blood cell count, unspecified; K59.00 Constipation, unspecified; K63.5 Polyp of colon; K31.7 Polyp of stomach and duodenum; K29.50 Unspecified chronic gastritis without bleeding; K64.8 Other hemorrhoids; E11.621 Type 2 diabetes mellitus with foot ulcer
CPT/HCPCS: 36415; 36569; 71045; 76770; 76870; 76937; 80048; 80053; 80061; 81003; 82270; 82378; 82550; 82607; 82728; 82746; 82962; 82977; 83036; 83540; 83550; 83690; 83735; 83880; 84100; 84439; 84443; 84484; 84550; 85007; 85025; 85044; 85610; 85730; 86140; 86703; 86705; 86709; 86803; 86850; 86900; 86901; 86920; 87070; 87081; 87205; 87340; 93005; 93306; 94003; 94150; 99285; J1815